=== PATIENT | male | born 1955 | race Caucasian/White ===

== ENCOUNTER 2024-12-17 10:34 | Outpatient (AMB) | payer MEDICARE, MEDICAID, SELFPAY ==
--- NOTE | 2024-12-17 10:47 | A.OFFPC_ITS ---
or your family down: not at all 7. Trouble concentrating on things, such as reading the newspaper or watching television: not at all 8. Moving or speaking so slowly that other people could have noticed. Or the opposite - being so fidgety or restless that you have been moving around a lot more than usual: not at all 9. Thoughts that you would be better off or of hurting yourself in some way: not at all Total score: 0 Depression Screening Interpretation: Negative Depression Screening Done: Yes 68220 - PHQ-9 Billing: Yes Source: Developed by Drs. Neel Muhammad, Alissa Ayoub, Gómez Sargent and colleagues, with an educational jorge from [employer]. Thrive Questionnaire Date Thrive assessed: 12/11/24 I am a: Patient What is your living situation today?: I have a steady place to live Within the past 12 months, did the food you bought not last and you didn't have the money to get more?: Never true Within the past 12 months, did you worry whether your food would run out before you got money to buy more?: Never true Do you have trouble paying for medicines?: No Do you have trouble getting transportation to medical appointments?: No Do you have trouble paying your heating and electricity bill?: No Do you have trouble taking care of your child, family member or friend?: No Do you have trouble with day-to-day activities such as bathing, preparing meals, shopping, managing finances, etc.?: No Are you currently unemployed and looking for a job?: No Are you interested in more education?: No Please select the resources that you would like help with: None Currently or been in a relationship where the following occur: No concerns reported THRIVE Score: 0 AUDIT C Alcohol Use Questionnaire (AUDIT-C) 1. How often do you have a drink containing alcohol?: Monthly or less 2. How many drinks containing alcohol do you have on a typical day when you are drinking?: 1 or 2 3. How often do you have six or more drinks on one occasion?: Never Total Score: 1 KAY-7 AMB Questionnaire KAY-7 Date KAY - 7 assessed: 12/17/24 Feeling nervous, anxious, or on edge: 0 = Not at all Not being able to stop or control worryin = Not at all Worrying too much about different things: 0 = Not at all Trouble relaxin = Not at all Being so restless that it is hard to sit still: 0 = Not at all Becoming easily annoyed or irritable: 0 = Not at all Feeling afraid as if something awful might happen: 0 = Not at all Total KAY-7 score (0-4 normal; 5-9 mild; 10-14 moderate; 15-21 severe): 0 Source: Developed by Drs. Neel Muhammad, Alissa Ayoub, Gómez Sargent and colleagues, with an educational jorge from [employer]. KAY-7 Assessment Billing KAY-7 Assessment Tool: KAY-7 Assessment 47248 Review of Systems Const Denies headache(s) Eyes Denies loss of vision ENT Denies vertigo, Reports dizziness, Denies headache(s) and Denies sore throat Card Reports chest pain (Mild), Denies leg edema, Reports lightheadedness and Denies radiating jaw, neck or arm pain Resp Denies cough, Denies hemoptysis and Denies wheezing GI Denies abdominal pain, Denies melena, Denies constipation, Denies diarrhea and Denies vomiting Denies dysuria, Denies urinary frequency and Denies urinary urgency Neuro Denies Abnormal speech present, Denies vertigo, Reports dizziness, Denies headache(s) and Denies loss of vision Carl/Lymph Denies easy bleeding and Denies easy bruising Aller/Immun Denies wheezing Physical exam (Primary Care) Vital Signs: Last Vital Signs Temp 97.1 F 12/17/24 10:49 Pulse 88 12/17/24 10:49 BP 82/70 L 12/17/24 10:49 Pulse Ox 90 L 12/17/24 10:49 Oxygen Delivery Method Room Air 12/17/24 10:49 BMI result Body Mass Index 29.8 Tobacco/Smoking Status: Tobacco use Status Tobacco use date assessed 12/17/24 12/17/24 11:00 Patient Tobacco Use Status Former Tobacco user 12/17/24 11:00 Tobacco use type Cigarette 12/17/24 11:00 e-Cigarette/Vaping Use Never Used 12/17/24 11:00 PHQ-9: PHQ-9 Score PHQ-9: Total score 0 12/17/24 23:57 Depression Screening Interpretation: Negative Thrive Assessment: Date of Thrive Assessment Date Thrive assessed 12/11/24 12/17/24 11:00 Currently or been in a relationship where the following occur: No concerns reported Const General: healthy appearing, no acute distress, alert and awake Nutritional Appearance: well nourished Orientation/consciousness: oriented to person, oriented to place and oriented to time HENMT Ears: external ears normal General nose exam: Normal external nose present Eyes Conjunctivae: conjunctivae normal Sclerae: sclerae normal Pupils: Equal, round and reactive pupils present Neck Neck: Yes no lymphadenopathy and Yes no JVD Thyroid: Thyroid normal Carotids: no bruits Resp Effort & Inspection: normal respiratory effort and not tachypneic Auscultation: no crackles, no rales, no rhonchi, no wheezes and diminished lung sounds Cardio Rate: regular rate Rhythm: regular rhythm Heart sounds: no murmurs and normal S1 and S2 GI Palpation (GI): Soft to palpation, nontender, no hepatomegaly and no splenomegaly Auscultation: normal bowel sounds Neuro General: oriented to person, oriented to place and oriented to time Cranial nerves: Yes Equal, round and reactive pupils present Speech: No Abnormal speech present Gait exam (Neuro): Normal gait present Motor exam (neuro): no tremor noted Extrem Right upper extremity: full ROM Left upper extremity: full ROM Right lower extremity: full ROM; no edema Left lower extremity: full ROM; no edema Psych Mental Status: mental status grossly normal Speech and movement: Normal speech and movement present Affect: normal affect Attitude: cooperative Thought process: Normal thought process present Results AMB Hemoglobin A1c AMB Hemoglobin A1c 7.3 % Last Edit by LEONORA Chris on 12/17/24 11:26 Results Reviewed Results Reviewed: Laboratory Last Values Hgb A1c (Clinic) 7.3 % (4.0-6.0) H 12/17/24 11:18 Coding Level of Care Code New Pt Level 5 (94031) Diagnoses Type 2 diabetes mellitus with hyperglycemia, with long-term current use of insulin E11.65; Z79.4 Diabetes mellitus type: type 2 Diabetes mellitus residential insulin use: with residential use Diabetes mellitus complication status: with hyperglycemia Hypotension due to drugs I95.2 Hypotension type: hypotension due to drug Dizziness R42 Precordial pain R07.2 Chest pain type: precordial pain Additional Codes KAY-7 Assessment Billing - KAY-7 Assessment Tool: KAY-7 Assessment 04341 ([id number]) PHQ-9 - 80038 - PHQ-9 Billing: Yes ([id number]) Time Spent (min) 45 Assessment & Plan Assessment & Plan (1) Diabetes mellitus: Code(s): E11.9 - Type 2 diabetes mellitus without complications Category: Medical Qualifiers: Diabetes mellitus type: type 2 Diabetes mellitus residential insulin use: with residential use Diabetes mellitus complication status: with hyperglycemia Qualified Code(s): E11.65 - Type 2 diabetes mellitus with hyperglycemia; Z79.4 - nursing home (current) use of insulin Plan: A1c in office supplement 2% and the patient has a Dexcom on blood sugars in the 200s. Reports taking 25 units of his Lantus this morning. He has not eating and only had a small amount of coffee prior to coming to this visit. Discussed with the patient that he has a start drinking more water for hydration. (2) Hypotension: Code(s): I95.9 - Hypotension, unspecified Category: Medical Qualifiers: Hypotension type: hypotension due to drug Qualified Code(s): I95.2 - Hypotension due to drugs Plan: Patient blood pressure is extremely low in office. Gave the patient 2 small cups of water to drink with no effects. Repeat blood pressures remain low and even lower than the initial low reading. The patient might be dehydrated given that he had small amount of coffee this morning and no other fluids. The patient is also on multiple blood pressure medications which were already taken this morning, complicating his situation and might be driving his low blood pressure as well. Discussed with the patient that he needs to go to emergency room for possibly dehydration or more serious conditions lowering his blood pressure. The patient daughter reports that this has been an ongoing issue and she was told just to monitor him. However, his blood pressure is at on unsafe low range. Educated the patient daughter that it isn't safe for him to go home and try and bringing his blood pressure up, and that he might need IV fluids. The patient daughter agrees and the ambulance was called to transport the patien t to the emergency room. (3) Dizziness: Code(s): R42 - Dizziness and giddiness Category: Medical Plan: Complain of dizziness and sitting in chair with the associated low blood pressure. (4) Chest pain: Code(s): R07.9 - Chest pain, unspecified Category: Medical Qualifiers: Chest pain type: precordial pain Qualified Code(s): R07.2 - Precordial pain Plan: Initially the patient denies chest pain but changes answer to mild chest pain as his blood pressure decreased slightly from initial reading. Orders: Orders AMB Hemoglobin A1c 12/17/24 Z13.9 - Encounter for screening, unspecified Vital Signs 12/17/24 10:49 Height 5 ft 7 in Weight 190 lb BMI 29.8 BP 82/70 L Blood Pressure Location Lt brachial Position Sitting Pulse 88 Pulse Source Pulse Oximeter Temp 97.1 F Temp Source Oral Pulse Oximetry (%) 90 L Oxygen Delivery Method Room Air Intake Visit Reasons: establish care Distance Education Faculty Liaison Required: No Accompanied by: Daughter Allergies hazelnuts Allergy (Severe, Uncoded 12/17/24 13:31) swelling, hives Medication List - Last Reconciled 12/17/24 by MILTON Linton amitriptyline 10 mg PO BEDTIME atorvastatin 80 mg PO DAILY carbamazepine ER mg PO clopidogrel 75 mg PO DAILY dulaglutide (Trulicity) mg subcut famotidine 20 mg PO BID insulin aspart (niacinamide) 100 unit/mL (Fiasp U-100 Insulin) subcut insulin glargine (Basaglar KwikPen U-100 Insulin) units subcut isosorbide mononitrate ER 30 mg PO BID lisinopril 5 mg PO DAILY metoprolol succinate ER 25 mg PO DAILY pregabalin 200 mg PO BID ropinirole mg PO Tobacco use date assessed: 12/17/24 Fall risk assessment: No Falls in past year Last assessed Fall Risk: 12/17/24 Dental Screening Dental Screen Date: 12/17/24 Did you have a dental visit in the last 12 months?: No Did you have a dental problem in the last 6 months where you did not have access to dental care?: No Was dental information given to patient?: Patient declined HPI establish care HPI Details Previous PCP: Dr. Holguin, [facility] in [place] Last visit: 2023 Last PE: 2023 Specialist: Cardiology, Urology, Endocrinology, Vascular surgeon OBGYN: Past medical history: DM, Enlarge prostate, heart disease Medications: Family HX: Brothers x3 had prostate CA Problem: he had an appt with PSA 9.42, he has been monitored for cancer. Reports that his prostate is enlarged DM: Last 8.2%, 7.2% Sliding scale only give either 10 or 20 units. Took 25 units of long-lasting insulin this morning. No short-acting taking. Blood sugar on Dexcom is in the 240s. Repeat blood pressure 78/54 right arm. Reports that he has a valve issue, not sure which one or the issue pertaining to the valve. Patient complains of dizziness and mild chest pain sitting in chair. Reports that he uses 2 or 3 L of oxygen at night because his oxygen level his known to drop at night; he is reporting nighttime sob. Breath sounds are diminished with continuous mild chest pain without radiation or any other associated symptoms. Discussed with the patient and daughter that even though the patient is alert and verbal in office. Given, his low blood pressure and symptoms of dizziness and mild chest pain, he needs to go to emergency room to be evaluated for dehydration or possibly more serious conditions. The ambulance was called and the patient was transferred via stretcher to the emergency room. The patient daughter was concerned about his medication being refilled. A discussed with the patient daughter that as soon as the patient is discharged from the hospital she could contact the office and his medications could be refilled. [facility] Medical History (Updated 12/18/24 @ 00:15 by MILTON Linton) Diabetes mellitus CVA (cerebral vascular accident) Type 2 diabetes mellitus HTN (hypertension) Surgical History History of carpal tunnel surgery History of surgery Family History Father No problems noted. Mother Heart disease Social History Household Members: Other Household Members Other:: daughter Housing: House Do you presently have visiting nurse or other home services: No Alcohol intake: current Alcohol intake frequency: holidays/special occasions only Alcohol type: beer Patient Tobacco Use Status: Former Tobacco user Tobacco use type: Cigarette Smoked in Last 30 Days: No e-Cigarette/Vaping Use: Never Used Second Hand Smoke Exposure: No Use of substances other than those prescribed or required for medical reasons: No Have you been hit, kicked, punched, or otherwise hurt by someone within the past year? If so, by whom?: No Do you feel safe in your current relationship?: No Current Relationship Is there a partner from a previous relationship who is making you feel unsafe now?: No Are you made to feel afraid or neglected: No Alevism Healthcare Practices: synagogue Advance Directives: No Advance Directives Information Provided: No Do you have a plan to hurt others: No Plan Recently lost weight without trying: No Nutrition Risks: No Nutritional Risk service: No Current occupational status: retired and disabled Cognitive needs: Yes Hearing needs: No Vision needs: Yes Questionnaire PHQ-9 Over the last 2 weeks, how often have you been bothered by any of the following problems? 1. Little interest or pleasure in doing things: not at all 2. Feeling down, depressed, or hopeless: not at all 3. Trouble falling or staying asleep, or sleeping too much: not at all 4. Feeling tired or having little energy: not at all 5. Poor appetite or overeating: not at all 6. Feeling bad about yourself - or that you are a failure or have let yourself
[2024-12-17 10:49] VITALS: BP 82/70; PULSE 88; TEMP 36.2; O2SAT 90; BMI 29.8
== END 2024-12-17 12:14 | disposition home or self-care (01) ==
DX: Z13.9 Encounter for screening, unspecified (principal)

== ENCOUNTER 2024-12-17 12:28 | Observation (INO) | payer MEDICARE, MEDICAID, SELFPAY ==
[2024-12-17] VITALS (9 sets, daily range): BP systolic 80–158; BP diastolic 42–86; PULSE 74–91; RESP 13–20; TEMP 36.5–37.1; O2SAT 92–101; BMI 31.5
--- NOTE | 2024-12-17 | ECG_ITS ---
Test Reason : Chest Pain Blood Pressure : */* mmHG Vent. Rate : 79 BPM Atrial Rate : 79 BPM P-R Int : 152 ms QRS Dur : 86 ms QT Int : 388 ms P-R-T Axes : 64 -13 82 degrees QTcB Int : 444 ms Normal sinus rhythm ST & T wave abnormality, consider lateral ischemia Abnormal ECG When compared with ECG of 10-Nov-2004 06:46, Non-specific change in ST segment in Inferior leads ST now depressed in Anterolateral leads T wave inversion now evident in Anterolateral leads QT has lengthened Referred By: Generic ED Physician Electronically Signed By: EL BLANCO MD
--- NOTE | ~2024-12-17 | XR_ITS ---
EXAMINATION: XR CHEST CLINICAL INFORMATION: Hypotension COMPARISON: None available. TECHNIQUE: Frontal view of the chest was obtained. FINDINGS: The cardiac, hilar, and mediastinal contours are normal. Lungs demonstrate increased linear markings in the retrocardiac region, likely discoid atelectasis. Lungs otherwise clear. No pneumothorax or effusion. No focal osseous or soft tissue abnormality. Numerous old left rib fractures noted. XR/XR chest 1V IMPRESSION: Left basilar discoid atelectasis. Otherwise no active disease. Electronically signed by: Teo Naranjo MD 12/17/2024 01:40 PM EDT RP
--- NOTE | 2024-12-17 13:04 | ED_ITS ---
HPI - General Adult General Chief complaint: General Medical Stated complaint: CP,LOW BP 110/67 FROM MD OFFICE PER EMS Time Seen by Provider: 12/17/24 12:41 Source: patient, EMS and old records reviewed Mode of arrival: EMS Limitations: no limitations History of Present Illness ED Provider: DR. Rose HPI narrative: A 69-year-old male came in by ambulance from PCP office for evaluation of low blood pressure and chest pain. Patient just moved from [place] to [place] went to have his 1st appointment for physical exam with his PCP found to be hypotensive, patient complained of no fever, no chills, no coughing, no dysuria, no frequency urination, no hematuria. No abdominal pain, no nausea, no vomiting, lost bowel movement was this morning and was normal color. Has been eating and drinking okay. Reviewing patient medication he is on metoprolol 25 mg and lisinopril 5 mg daily. Patient use supplemental oxygen 3 L p.r.n. at home. Related Data Home Medications ?Medication ?Instructions ?Recorded ?Confirmed amitriptyline 10 mg tablet 10 mg PO BEDTIME 12/17/24 12/17/24 atorvastatin 80 mg tablet 80 mg PO DAILY 12/17/24 12/17/24 carbamazepine 200 mg mg PO 12/17/24 12/17/24 tablet,extended release,12 hr clopidogrel 75 mg tablet 75 mg PO DAILY 12/17/24 12/17/24 dulaglutide 4.5 mg/0.5 mL mg subcut 12/17/24 12/17/24 subcutaneous pen injector (Trulicity) famotidine 20 mg tablet 20 mg PO BID 12/17/24 12/17/24 insulin aspart (niacinamide) subcut 12/17/24 12/17/24 (U-100) 100 unit/mL subcutaneous solution (Fiasp U-100 Insulin) insulin glargine 100 unit/mL (3 unit subcut 12/17/24 12/17/24 mL) subcutaneous pen (Basaglar KwikPen U-100 Insulin) isosorbide mononitrate 30 mg 30 mg PO BID 12/17/24 12/17/24 tablet,extended release 24 hr lisinopril 5 mg tablet 5 mg PO DAILY 12/17/24 12/17/24 metoprolol succinate 25 mg 25 mg PO DAILY 12/17/24 12/17/24 tablet,extended release 24 hr pregabalin 200 mg capsule 200 mg PO BID 12/17/24 12/17/24 ropinirole 2 mg tablet mg PO 12/17/24 12/17/24 Allergies Allergy/AdvReac Type Severity Reaction Status Date / Time kariss Allergy Severe swelling, Uncoded 12/17/24 13:31 hives Review of Systems 2 Review of Systems: All other systems are reviewed and are negative Constitutional: Reports as per HPI and Reports no additional constitutional complaints Eyes: Reports as per HPI and Reports no additional eye complaints Reports system reviewed and no additional complaints, except as documented Cardiovascular: Reports as per HPI and Reports no additional cardiovascular complaints Respiratory: Reports as per HPI and Reports no additional respiratory complaints Gastrointestinal: Reports as per HPI and Reports no additional gastrointestinal complaints Genitourinary: Reports no additional female genitourinary complaints Musculoskeletal: Reports no additional musculoskeletal complaints Skin/Breast: Reports system reviewed and no additional complaints, except as docu Psychiatric: Reports no additional psychiatric complaints Endocrine: Reports no additional endocrine complaints Hematologic/Lymphatic: Reports no additional hematologic/lymphatic complaints Allergic/Immunologic: Reports no additional allergic/immunologic complaints Reports system reviewed and no additional complaints, except as documented and Reports Abnormal speech present [facility], [facility] Past Medical History Medical History Type 2 diabetes mellitus HTN (hypertension) Surgical History History of carpal tunnel surgery History of surgery Family History Family History Father No problems noted. Mother Heart disease Social History Social History Housing: House Alcohol intake: current Alcohol intake frequency: holidays/special occasions only Alcohol type: beer Patient Tobacco Use Status: Former Tobacco user Tobacco use type: Cigarette Smoked in Last 30 Days: No e-Cigarette/Vaping Use: Never Used Second Hand Smoke Exposure: No Use of substances other than those prescribed or required for medical reasons: No Advance Directives: No Advance Directives Information Provided: No Do you have a plan to hurt others: No Plan service: No Current occupational status: retired and disabled Cognitive needs: Yes Hearing needs: No Vision needs: Yes Physical Exam ED Vital Signs: Vital Signs - 24 hr 12/17/24 12:45 12/17/24 12:45 12/17/24 13:36 Temperature 98.2 F 98.2 F Pulse Rate 83 83 77 Respiratory Rate 13 13 Blood Pressure 80/50 L 80/50 L 84/42 L Pulse Oximetry 100 101 H Oxygen Delivery Method Room Air Room Air 12/17/24 13:36 12/17/24 13:36 12/17/24 14:00 Temperature 97.7 F Pulse Rate 84 91 78 Respiratory Rate 15 Blood Pressure 94/56 L 83/42 L 96/53 L Pulse Oximetry 99 Oxygen Delivery Method Room Air 12/17/24 15:13 Temperature Pulse Rate 77 Respiratory Rate 16 Blood Pressure 127/67 Pulse Oximetry 96 Oxygen Delivery Method Room Air BMI result Body Mass Index 31.5 Vital signs have been reviewed and appear to be correct. Blood pressure low. Heart rate normal. Respiratory rate normal. Temperature normal. Oxygen saturation normal. Appearance: Alert. Oriented X3. No acute distress. Head: Normal external exam. Normocephalic. Atraumatic. No Carrizales signs noted. No raccoon eyes noted Eyes: PERRLA. EOMI. Conjunctiva and sclera normal. Eyelids normal. ENT: TM's Normal. Pharynx normal. Uvula midline. dry mucous membranes. No trismus noted. No drooling noted. No muffled voice noted. Neck: Normal inspection. Neck supple. FROM. No adenopathy. Thyroid Normal. No meningeal signs. No neck mass noted. CVS: Normal heart rate and rhythm. Heart sound normal. No murmurs noted. Pulses normal throughout. Respiratory: No respiratory distress. Painless inspiration. Breath sounds normal. No wheezes/rales/rhonchi noted. Chest nontender. No accessory muscle usage noted or decreased air movement noted. Abdomen: Soft and nontender. Bowel sounds normal in all 4 quadrants. No distention noted. No organomegaly noted. No visible injury noted. Back: No CVA tenderness. Full range of motion noted. Skin: Skin warm and dry. Normal skin color. Normal skin turgor. No rashes/lesions/lacerations noted. Extremities: No lower extremity edema. Extremities exhibit normal range of motion. Extremities nontender. Neuro: Oriented X 3. Cranial nerve exam: II-XII are grossly intact No motor deficit. No sensory deficit. Reflexes normal. Course Reevaluation(s) Reevaluation #1: Sent from PCP office for hypotension and chest pain. 1. Exam is consistent with slight dehydration, with heme concentration on CBC and elevated BUN, patient received 2 L of Ringer's lactate with improvement of blood pressure. 2. Recently moved to [facility] reviewing patient med list showing patient is currently on lisinopril and metoprolol which could contribute to his hypotension. 3. No source of infection to Time: 15:30 Medications Administered Discontinued Medications Generic Name Dose Route Start Last Admin Trade Name Freq PRN Reason Stop Dose Admin Lactated Ringer's 1,000 mls @ 999 mls/hr 12/17/24 13:00 12/17/24 14:41 Lr IV 12/17/24 14:00 Infused .Q1H1M MOISES Infusion Lactated Ringer's 1,000 mls @ 999 mls/hr 12/17/24 13:45 12/17/24 15:17 Lr IV 12/17/24 14:45 Infused .Q1H1M MOISES Infusion Lactated Ringer's 1,000 mls @ 999 mls/hr 12/17/24 14:30 12/17/24 14:55 Lr IV 12/17/24 15:30 999 mls/hr .Q1H1M MOISES Administration Medical Decision Making Differential Diagnosis Differential Diagnoses: The differential diagnosis associated with the presentation includes (Dehydration, ESTEBAN, infection, hypovolemia, drug-induced hypotension, electrolyte derangement, severe anemia.) Admission/Observation Consideration of admission/observation: Escalation of care including admission/observation considered Consult Healthcare Provider Management of the patient was discussed with: Hospitalist (Dr. Maldonado) Lab Data MDM Lab Attestation statement: I reviewed the patient's lab results. 12/17/24 13:19 12/17/24 13:19 Labs: Lab Results 12/17/24 12/17/24 Range/Units 13:19 14:59 WBC 8.7 (4.8-10.8) X10*3/uL RBC 6.13 H (4.60-5.80) X10*6/uL Hgb 18.4 H (14.0-18.0) g/dl Hct 56.0 H (42.0-52.0) % MCV 91.4 (80.0-98.0) fL MCH 30.0 (27.0-33.0) pg MCHC 32.9 (31.0-36.0) g/dl RDW 14.1 (11.0-16.0) % Plt Count 191 (160-400) X10*3/uL MPV 10.9 (9.4-12.4) fL Immature Gran % (Auto) 0.2 (0.0-0.4) % Neut % (Auto) 61.3 (45-73) % Lymph % (Auto) 25.4 (20-40) % [place] % (Auto) 11.9 H (2-11) % Eos % (Auto) 0.9 (0-4) % Baso % (Auto) 0.3 (0-2) % Lymph # (Auto) 2.2 (1.2-4.9) X10*3/uL [place] # (Auto) 1.0 (0.1-1.2) X10*3/uL Eos # (Auto) 0.1 (0.0-0.4) X10*3/uL Baso # (Auto) 0.0 (0.0-0.2) X10*3/uL Abs Immat Gran (auto) 0.02 (0.00-0.03) X10*3/uL Absolute Neuts (auto) 5.3 (2.0-8.3) x10*3/uL Absolute Nucleated RBC 0.000 (0.0-0.012) X10*3/uL Nucleated RBC % (auto) 0.0 (0.0-0.2) /100WBC PT 11.0 (10.9-12.4) SEC INR 1.0 (0.9-1.1) Sodium 138 (135-145) mmol/L Potassium 4.8 (3.3-5.1) mmol/L Chloride 106 (96-108) mmol/L Carbon Dioxide 25 (22-29) mmol/L Anion Gap 12 (12-20) BUN 31 H (9-16) mg/dL Creatinine 1.31 (0.5-1.4) mg/dL Estim Creat Clear Calc 56.5 Estimated GFR 54 Random Glucose 219 H (60-115) mg/dL Lactic Acid 1.4 (0.5-2.0) mmol/L Calcium 8.7 (8.4-10.2) mg/dL Total Bilirubin 0.4 (0.0-1.0) mg/dL Direct Bilirubin 0.1 (0.0-0.5) mg/dL AST 16 (5-37) U/L ALT 20 (0-40) U/L Alkaline Phosphatase 102 (39-117) U/L Troponin I High Sens 22.7 (<3.5-35.0) ng/L B-Natriuretic Peptide 111 H (<100) pg/mL Total Protein 6.7 (6.5-8.0) g/dL Albumin 3.8 (3.5-5.0) g/dL Lipase 21 (8-78) U/L Urine Color Yellow Urine Appearance Clear Urine pH 5.5 (5.0-9.0) Ur Specific [place] 1.015 (1.005-1.025) Urine Protein Trace (Neg-Trace) mg/dL Urine Glucose (UA) Negative (Negative) mg/dL Urine Ketones Trace (Negative) mg/dL Urine Blood Negative (Negative) Urine Nitrite Negative (Negative) Ur Leukocyte Esterase Negative (Negative) Influenza Type A (PCR) NEGATIVE (Negative) Influenza Type B (PCR) NEGATIVE (Negative) RSV RNA Qual (PCR) NEGATIVE (Negative) SARS-CoV-2 RNA (RT-PCR) NEGATIVE (Negative) Independent Interpretation I performed an independent interpretation of an: Plain X-Ray (Chest:Left basilar discoid atelectasis. Otherwise no active disease. ) Discharge Plan Discharge Clinical Impression: Acute hypotension, Dehydration, Drug-induced hypotension Patient Disposition: Admitted As Inpatient
[2024-12-17 13:30] LABS: MANUAL DIFF FLAG NO
[2024-12-17 13:35] LABS: Basophils Percent Auto 0.3 % (0-2); Eosinophils Absolute Auto 0.1 X10*3/uL (0.0-0.4); Eosinophils Percent Auto 0.9 % (0-4); Hemoglobin 18.4 g/dl (14.0-18.0); Imm Gran Abs Auto 0.02 X10*3/uL (0.00-0.03); Imm Gran Pct Auto 0.2 % (0.0-0.4); Lymphocytes Absolute Auto 2.2 X10*3/uL (1.2-4.9); Lymphocytes Percent Auto 25.4 % (20-40); Mean Corpuscular HGB Conc 32.9 g/dl (31.0-36.0); Mean Corpuscular Volume 91.4 fL (80.0-98.0); Mean Platelet Volume 10.9 fL (9.4-12.4); Monocytes Percent Auto 11.9 % (2-11); Neutrophils Absolute Auto 5.3 x10*3/uL (2.0-8.3); Neutrophils Percent Auto 61.3 % (45-73); Platelet Count 191 X10*3/uL (160-400); Red Blood Count 6.13 X10*6/uL (4.60-5.80); Red Cell Distribution Width 14.1 % (11.0-16.0); White Blood Count 8.7 X10*3/uL (4.8-10.8)
[2024-12-17] MEDS: Lactated Ringers 1,000 ML 999 ML IV ×3 (13:40→14:55)
[2024-12-17 13:48] LABS: Lactic Acid 1.4 mmol/L (0.5-2.0)
[2024-12-17 13:50] LABS: Alanine Aminotransferase 20 U/L (0-40); Albumin Level 3.8 g/dL (3.5-5.0); Alkaline Phosphatase 102 U/L (39-117); Anion Gap 12 (12-20); Aspartate Amino Transferase 16 U/L (5-37); Bilirubin Direct 0.1 mg/dL (0.0-0.5); Bilirubin Total 0.4 mg/dL (0.0-1.0); Blood Urea Nitrogen 31 mg/dL (9-16); Calcium 8.7 mg/dL (8.4-10.2); Carbon Dioxide 25 mmol/L (22-29); Chloride 106 mmol/L (96-108); Creatinine Clr Calc Pharmacy 56.5; Estimated Glomerular Filt Rate 54; Glucose Random 219 mg/dL (60-115); Lipase 21 U/L (8-78); Potassium 4.8 mmol/L (3.3-5.1); Sodium 138 mmol/L (135-145); Total Protein 6.7 g/dL (6.5-8.0)
[2024-12-17 13:54] LABS: B Type Natriuretic Peptide 111 pg/mL (<100)
[2024-12-17 13:56] LABS: Troponin-I High Sensitivity 22.7 ng/L (<3.5-35.0)
[2024-12-17 14:14] LABS: Influenza A PCR NEGATIVE (Negative); Influenza B PCR NEGATIVE (Negative); Resp Syncy Virus RNA Qual PCR NEGATIVE (Negative); SARS COV2 PCR INHOUSE NEGATIVE (Negative)
[2024-12-17 15:06] LABS: Appearance Urine Clear; Color Urine Yellow; Glucose Urine UA Negative (Negative); Leukocyte Esterase Urine Negative (Negative); Nitrite Urine Negative (Negative); PH 5.5 (5.0-9.0); Specific Gravity - Urine 1.015 (1.005-1.025); Urine Blood Negative (Negative); Urine Ketones Trace mg/dL (Negative); Urine Protein Trace mg/dL (Neg-Trace)
--- NOTE | 2024-12-17 15:25 | P.HPHOSP_ITS ---
History of Present Illness Date of Service: 12/17/24 Chief Complaint: weakness, hypotension A 69 years old male with PMH of DMII, HTN, HLD, CAD among others presenting to ED from PCP office for reported chest heaviness and low blood pressure. The patient moved recently from [place] and went to see his PCP for the first time. in evaluation he reported heaviness in chest and was found hypotensive in PCP office. No chest pain, palpitations, SOB, nausea, vomiting, diarrhea or urinary symptoms. Takes Metoprolol and Lisinopril at home. In ED BP found of 80s/40s. responded to IV fluids and improved. EKG and Trop negative for any suggestion of ACS. Admitted for further work up and management. Review of Systems 2 Review of Systems: No fever, chills or weakness No chest pain, palpitation No shortness of breath or coughing No abdominal pain, nausea or vomiting No urinary symptoms No any rash or wounds PMFSH Medical History Type 2 diabetes mellitus HTN (hypertension) Family History Father No problems noted. Mother Heart disease Surgical History History of carpal tunnel surgery History of surgery Social History Housing: House Alcohol intake: current Alcohol intake frequency: holidays/special occasions only Alcohol type: beer Patient Tobacco Use Status: Former Tobacco user Tobacco use type: Cigarette Smoked in Last 30 Days: No e-Cigarette/Vaping Use: Never Used Second Hand Smoke Exposure: No Use of substances other than those prescribed or required for medical reasons: No Advance Directives: No Advance Directives Information Provided: No Do you have a plan to hurt others: No Plan Nutrition Risks: No Nutritional Risk service: No Current occupational status: retired and disabled Cognitive needs: Yes Hearing needs: No Vision needs: Yes Meds Allergies Allergy/AdvReac Type Severity Reaction Status Date / Time hazelnuts Allergy Severe swelling, Uncoded 12/17/24 13:31 hives Active Medications: Current Medications Lactated Ringer's (Lr) 1,000 mls @ 999 mls/hr IV .Q1H1M MOISES Stop: 12/17/24 15:30 Last Admin: 12/17/24 14:55 Dose: 999 mls/hr Home Medications ?Medication ?Instructions ?Recorded ?Confirmed ?Last Taken ?Type amitriptyline 10 mg tablet 10 mg PO BEDTIME 12/17/24 12/17/24 Unknown History atorvastatin 80 mg tablet 80 mg PO DAILY 12/17/24 12/17/24 Unknown History carbamazepine 200 mg 200 mg PO DAILY 12/17/24 12/17/24 Unknown History tablet,extended release,12 hr clopidogrel 75 mg tablet 75 mg PO DAILY 12/17/24 12/17/24 Unknown History dulaglutide 4.5 mg/0.5 mL 4.5 mg subcut QWEEK 12/17/24 12/17/24 Unknown History subcutaneous pen injector (Trulicity) famotidine 20 mg tablet 20 mg PO BID 12/17/24 12/17/24 Unknown History insulin aspart (niacinamide) subcut 12/17/24 12/17/24 Unknown History (U-100) 100 unit/mL subcutaneous solution (Fiasp U-100 Insulin) insulin glargine 100 unit/mL (3 unit subcut 12/17/24 12/17/24 Unknown History mL) subcutaneous pen (Basaglar KwikPen U-100 Insulin) isosorbide mononitrate 30 mg 30 mg PO BID 12/17/24 12/17/24 Unknown History tablet,extended release 24 hr lisinopril 5 mg tablet 5 mg PO DAILY 12/17/24 12/17/24 Unknown History metoprolol succinate 25 mg 25 mg PO DAILY 12/17/24 12/17/24 Unknown History tablet,extended release 24 hr pregabalin 200 mg capsule 200 mg PO BID 12/17/24 12/17/24 Unknown History ropinirole 2 mg tablet 2 mg PO BID 12/17/24 12/17/24 Unknown History Physical Exam 2 Vital Signs and Narrative: Vital Signs: Last Vital Signs Temp 97.7 F 12/17/24 14:00 Pulse 77 12/17/24 15:13 Resp 16 12/17/24 15:13 BP 127/67 12/17/24 15:13 Pulse Ox 96 12/17/24 15:13 O2 Del Method Room Air 12/17/24 15:13 BMI result Body Mass Index 31.5 Const: Other: Constitutional : Awake, interactive, not in distress Neck : Normal inspection, Supple Cardiovascular : RRR, no JVP, no lower extremity edema Respiratory : good bilateral air entry, no crackles, wheezes or rhonchi Gastrointestinal: soft, lax, Normal bowel sounds, Non tender Skin : Warm, Dry Neurological : Alert & oriented x3, No focal deficit Results Labs 12/17/24 13:19 12/17/24 13:19 Labs: Laboratory Results - last 24 hr 12/17/24 13:19 MCV 91.4 MCH 30.0 MCHC 32.9 RDW 14.1 Plt Count 191 MPV 10.9 Immature Gran % (Auto) 0.2 Neut % (Auto) 61.3 Lymph % (Auto) 25.4 [place] % (Auto) 11.9 H Eos % (Auto) 0.9 Baso % (Auto) 0.3 Lymph # (Auto) 2.2 [place] # (Auto) 1.0 Eos # (Auto) 0.1 Baso # (Auto) 0.0 Abs Immat Gran (auto) 0.02 Absolute Neuts (auto) 5.3 Absolute Nucleated RBC 0.000 Nucleated RBC % (auto) 0.0 PT 11.0 INR 1.0 Anion Gap 12 Estim Creat Clear Calc 56.5 Estimated GFR 54 Random Glucose 219 H Lactic Acid 1.4 Calcium 8.7 Total Bilirubin 0.4 Direct Bilirubin 0.1 AST 16 ALT 20 Alkaline Phosphatase 102 B-Natriuretic Peptide 111 H Total Protein 6.7 Albumin 3.8 Lipase 21 Influenza Type A (PCR) NEGATIVE Influenza Type B (PCR) NEGATIVE RSV RNA Qual (PCR) NEGATIVE SARS-CoV-2 RNA (RT-PCR) NEGATIVE Imaging Radiologist's Impressions: Impressions Chest X-Ray 12/17/24 13:00 IMPRESSION: Left basilar discoid atelectasis. Otherwise no active disease. Electronically signed by: Teo Naranjo MD 12/17/2024 01:40 PM EDT Assessment and Plan (1) Drug-induced hypotension: Status: Acute (2) Acute hypotension: Status: Acute (3) Dehydration: Status: Acute Plan A 69 years old male with PMH of DMII, HTN, HLD, CAD among others presenting to ED from PCP office for reported chest heaviness and low blood pressure. Hypotension Likely related to medications and dehydration as BUN elevated and has concentrated CBC IVF fluids Hold Lisinopril and Metoprolol monitor orthostatic readings DMII Hold PO meds SSI diabetic diet Hx CAD Plavix, Statin, Imdur ? Neuropathy Gabapentin Nocurnal hypoxia on 2 L at home DVT PPx Lovenox The patient will be monitored for low BP Quality Stroke Does the patient have a stroke diagnosis?: No VTE Prior VTE?: No VTE Risk Level:: Medical - moderate - high VTE Device Contraindication: Treatment Not Indicated VTE Drug Contraindication: N/A - Med Ordered
[2024-12-17 16:27] LABS: Troponin-I High Sensitivity 16.9 ng/L (<3.5-35.0)
[2024-12-17] MEDS: Lactated Ringers 1,000 ML 100 ML IVCONT (16:34)
[2024-12-17 16:53] LABS: Glucose, Whole Blood 149 mg/dL (60-115)
[2024-12-17 17:42] LABS: Glucose, Whole Blood 151 mg/dL (60-115)
--- NOTE | 2024-12-17 19:50 | PHA.MEDREC ---
Addendum entered by Maco Crockett [facility] 12/17/24 20:05: med rec reviewed Original Note: Pharmacy Consult ? Medication Reconciliation Pharmacy has completed the medication reconciliation. Spoke with patient and pt's daughter at bedside, who had a list I was able to confirm the med rec with. Pt daughter confirmed the pt takes the Fiasp insulin still taking it TIDAC and uses it per sliding scale as indicated. She also confirmed the Basaglar and stated the pt is injecting 25 units BID. Pt daughter stated the pt is suppose to be taking Pregabalin 200mg tabs but ran out a few weeks ago and had a Dr apt today to refill it but got sent here from office and pt dr wants to wait to refill Pregabalin until after pt gets discharged from here and goes for a follow up.
[2024-12-17 20:27] LABS: Glucose, Whole Blood 213 mg/dL (60-115)
[2024-12-17] MEDS: Insulin Lispro 100 UNIT/ML 3 ML VIAL SUBCUT (21:03)
[2024-12-17] MEDS: Hydrocortisone 1 % Cream 28.35 GM TUBE 1 APPL TOPICAL (22:42)
[2024-12-18] MEDS: Lactated Ringers 1,000 ML 100 ML IVCONT (02:35)
[2024-12-18] MEDS: Melatonin 3 MG TABLET 6 MG PO (02:39)
[2024-12-18] MEDS: Acetaminophen 325 MG TABLET 650 MG PO (02:39)
[2024-12-18 03:05] VITALS: BP 147/83; PULSE 77; RESP 20; TEMP 36.4; O2SAT 93
[2024-12-18 07:06] VITALS: BP 144/84; PULSE 89; RESP 18; TEMP 36; O2SAT 94
[2024-12-18 07:18] LABS: MANUAL DIFF FLAG NO
[2024-12-18 07:28] LABS: Basophils Percent Auto 0.2 % (0-2); Eosinophils Absolute Auto 0.2 X10*3/uL (0.0-0.4); Eosinophils Percent Auto 2.4 % (0-4); Hemoglobin 17.2 g/dl (14.0-18.0); Imm Gran Abs Auto 0.02 X10*3/uL (0.00-0.03); Imm Gran Pct Auto 0.2 % (0.0-0.4); Lymphocytes Absolute Auto 2.6 X10*3/uL (1.2-4.9); Lymphocytes Percent Auto 32.1 % (20-40); Mean Corpuscular HGB Conc 33.1 g/dl (31.0-36.0); Mean Corpuscular Hemoglobin 30.3 pg (27.0-33.0); Mean Corpuscular Volume 91.7 fL (80.0-98.0); Mean Platelet Volume 11.4 fL (9.4-12.4); Monocytes Absolute Auto 1.1 X10*3/uL (0.1-1.2); Monocytes Percent Auto 13.2 % (2-11); Neutrophils Absolute Auto 4.2 x10*3/uL (2.0-8.3); Neutrophils Percent Auto 51.9 % (45-73); Platelet Count 171 X10*3/uL (160-400); Red Blood Count 5.67 X10*6/uL (4.60-5.80); Red Cell Distribution Width 13.4 % (11.0-16.0)
[2024-12-18 07:30] LABS: Glucose, Whole Blood 113 mg/dL (60-115)
[2024-12-18 07:58] LABS: Blood Urea Nitrogen 20 mg/dL (9-16); Calcium 8.7 mg/dL (8.4-10.2); Creatinine Clr Calc Pharmacy 84.1; Estimated Glomerular Filt Rate > 60; Glucose Random 92 mg/dL (60-115)
[2024-12-18 08:06] LABS: Anion Gap 12 (12-20); Carbon Dioxide 25 mmol/L (22-29); Chloride 109 mmol/L (96-108); Potassium 3.7 mmol/L (3.3-5.1); Sodium 142 mmol/L (135-145)
[2024-12-18 08:43] VITALS: BP 164/76; PULSE 95
[2024-12-18] MEDS: Insulin Glargine,Hum.rec.anlog 100 UNIT/ML 10 ML VIAL 15 UNIT SUBCUT (08:43)
[2024-12-18] MEDS: Metoprolol Succinate ER 25 MG TAB.ER.24H PO (08:43)
[2024-12-18] MEDS: Clopidogrel Bisulfate 75 MG TABLET PO (08:44)
[2024-12-18] MEDS: Famotidine 20 MG TABLET PO (08:44)
[2024-12-18] MEDS: Aspirin Enteric Coated 81 MG TABLET.DR PO (08:44)
[2024-12-18] MEDS: 0.9 % Sodium Chloride Flush 3 ML SYRINGE IVFLUSH (08:44)
[2024-12-18] MEDS: rOPINIRole HCL 2 MG TABLET PO (08:44)
[2024-12-18] MEDS: Hydrocortisone 1 % Cream 28.35 GM TUBE 1 APPL TOPICAL (08:45)
[2024-12-18] MEDS: carBAMazepine ER 200 MG TAB.ER.12H PO (10:35)
[2024-12-18] MEDS: Pregabalin 200 MG CAPSULE PO (10:35)
[2024-12-18 10:51] VITALS: BP 177/83; PULSE 88
[2024-12-18 10:52] VITALS: BP 166/71; BP 170/80; PULSE 90; PULSE 92
[2024-12-18] MEDS: Isosorbide Mononitrate 30 MG TAB.ER.24H 15 MG PO (11:00)
[2024-12-18 11:06] LABS: Glucose, Whole Blood 246 mg/dL (60-115)
[2024-12-18 12:00] VITALS: BP 164/83; PULSE 86; RESP 18; TEMP 36.3; O2SAT 93
--- NOTE | 2024-12-18 13:00 | PM.DS ---
DS: Providers Provider Date of Service: 12/18/24 Date of admission: 12/17/24 15:23 Date of discharge: 12/18/24 Primary care physician: Unknown Physician DS: Diagnosis Discharge Diagnosis (1) Drug-induced hypotension: Status: Acute (2) Acute hypotension: Status: Acute (3) Dehydration: Status: Acute DS: Summary Hospital Course Hospital Course: Admission note HPI A 69 years old male with PMH of DMII, HTN, HLD, CAD among others presenting to ED from PCP office for reported chest heaviness and low blood pressure. The patient moved recently from [place] and went to see his PCP for the first time. in evaluation he reported heaviness in chest and was found hypotensive in PCP office. No chest pain, palpitations, SOB, nausea, vomiting, diarrhea or urinary symptoms. Takes Metoprolol and Lisinopril at home. In ED BP found of 80s/40s. responded to IV fluids and improved. EKG and Trop negative for any suggestion of ACS. Admitted for further work up and management. Hospital course The patient was admitted for treatment of Hypotension Likely related to medications and dehydration as BUN elevated and has concentrated CBC. Responded to IVF fluid and Holding blood pressure medications of Imdur, Lisinopril and Metoprolol. His Imdur and MEtoprolol were restarted while Lisinopril kept on hold. Imdur decreased to 30 mg daily instead of BID. repeated orthostatic vitals were stable and he was able to ambulate with no reported lightheadedness or weakness. To discharge on MEtoprolol and Imdur 30 daily for now. monitor BP at home and follow with PCP for further adjustments. 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 Time Attestation Discharge Coordination Time (in mins): 27 Quality: Safe Use of Opioids Does Pt have an Active Cancer Diagnosis on the Problem List?: No Quality: Stroke Does the patient have a stroke diagnosis?: No Physical Exam Vital Signs: Vital Signs: Last Vital Signs Temp 97.3 F 12/18/24 12:00 Pulse 86 12/18/24 12:00 Resp 18 12/18/24 12:00 BP 164/83 H 12/18/24 12:00 Pulse Ox 93 12/18/24 12:00 O2 Del Method Room Air 12/18/24 12:00 BMI result Body Mass Index 31.5 Const: Other: Constitutional : Awake, interactive, not in distress Neck : Normal inspection, Supple Cardiovascular : RRR, no JVP, no lower extremity edema Respiratory : good bilateral air entry, no crackles, wheezes or rhonchi Gastrointestinal: soft, lax, Normal bowel sounds, Non tender Skin : Warm, Dry Neurological : Alert & oriented x3, No focal deficit DS: Data Data Completed and Pending Labs on day of discharge: Laboratory Results - last 24 hr 12/17/24 12/17/24 12/17/24 13:19 14:59 16:03 WBC 8.7 RBC 6.13 H Hgb 18.4 H Hct 56.0 H MCV 91.4 MCH 30.0 MCHC 32.9 RDW 14.1 Plt Count 191 MPV 10.9 Immature Gran % (Auto) 0.2 Neut % (Auto) 61.3 Lymph % (Auto) 25.4 [place] % (Auto) 11.9 H Eos % (Auto) 0.9 Baso % (Auto) 0.3 Lymph # (Auto) 2.2 [place] # (Auto) 1.0 Eos # (Auto) 0.1 Baso # (Auto) 0.0 Abs Immat Gran (auto) 0.02 Absolute Neuts (auto) 5.3 Absolute Nucleated RBC 0.000 Nucleated RBC % (auto) 0.0 PT 11.0 INR 1.0 Sodium 138 Potassium 4.8 Chloride 106 Carbon Dioxide 25 Anion Gap 12 BUN 31 H Creatinine 1.31 Estim Creat Clear Calc 56.5 Estimated GFR 54 POC Glucose Random Glucose 219 H Lactic Acid 1.4 Calcium 8.7 Total Bilirubin 0.4 Direct Bilirubin 0.1 AST 16 ALT 20 Alkaline Phosphatase 102 Troponin I High Sens 22.7 16.9 B-Natriuretic Peptide 111 H Total Protein 6.7 Albumin 3.8 Lipase 21 Urine Color Yellow Urine Appearance Clear Urine pH 5.5 Ur Specific [place] 1.015 Urine Protein Trace Urine Glucose (UA) Negative Urine Ketones Trace Urine Blood Negative Urine Nitrite Negative Ur Leukocyte Esterase Negative Influenza Type A (PCR) NEGATIVE Influenza Type B (PCR) NEGATIVE RSV RNA Qual (PCR) NEGATIVE SARS-CoV-2 RNA (RT-PCR) NEGATIVE 12/17/24 12/17/24 12/17/24 16:50 17:39 20:21 WBC RBC Hgb Hct MCV MCH MCHC RDW Plt Count MPV Immature Gran % (Auto) Neut % (Auto) Lymph % (Auto) [place] % (Auto) Eos % (Auto) Baso % (Auto) Lymph # (Auto) [place] # (Auto) Eos # (Auto) Baso # (Auto) Abs Immat Gran (auto) Absolute Neuts (auto) Absolute Nucleated RBC Nucleated RBC % (auto) PT INR Sodium Potassium Chloride Carbon Dioxide Anion Gap BUN Creatinine Estim Creat Clear Calc Estimated GFR POC Glucose 149 H 151 H 213 H Random Glucose Lactic Acid Calcium Total Bilirubin Direct Bilirubin AST ALT Alkaline Phosphatase Troponin I High Sens B-Natriuretic Peptide Total Protein Albumin Lipase Urine Color Urine Appearance Urine pH Ur Specific [place] Urine Protein Urine Glucose (UA) Urine Ketones Urine Blood Urine Nitrite Ur Leukocyte Esterase Influenza Type A (PCR) Influenza Type B (PCR) RSV RNA Qual (PCR) SARS-CoV-2 RNA (RT-PCR) 12/18/24 12/18/24 12/18/24 07:05 07:14 11:02 WBC 8.0 RBC 5.67 Hgb 17.2 Hct 52.0 MCV 91.7 MCH 30.3 MCHC 33.1 RDW 13.4 Plt Count 171 MPV 11.4 Immature Gran % (Auto) 0.2 Neut % (Auto) 51.9 Lymph % (Auto) 32.1 [place] % (Auto) 13.2 H Eos % (Auto) 2.4 Baso % (Auto) 0.2 Lymph # (Auto) 2.6 [place] # (Auto) 1.1 Eos # (Auto) 0.2 Baso # (Auto) 0.0 Abs Immat Gran (auto) 0.02 Absolute Neuts (auto) 4.2 Absolute Nucleated RBC 0.000 Nucleated RBC % (auto) 0.0 PT INR Sodium 142 Potassium 3.7 D Chloride 109 H Carbon Dioxide 25 Anion Gap 12 BUN 20 H Creatinine 0.88 Estim Creat Clear Calc 84.1 Estimated GFR > 60 POC Glucose 113 246 H Random Glucose 92 Lactic Acid Calcium 8.7 Total Bilirubin Direct Bilirubin AST ALT Alkaline Phosphatase Troponin I High Sens B-Natriuretic Peptide Total Protein Albumin Lipase Urine Color Urine Appearance Urine pH Ur Specific [place] Urine Protein Urine Glucose (UA) Urine Ketones Urine Blood Urine Nitrite Ur Leukocyte Esterase Influenza Type A (PCR) Influenza Type B (PCR) RSV RNA Qual (PCR) SARS-CoV-2 RNA (RT-PCR) Imaging Chest x-ray: Radiologist's impression: ITS Impressions Chest X-Ray 12/17/24 13:00 IMPRESSION: Left basilar discoid atelectasis. Otherwise no active disease. Electronically signed by: Teo Naranjo MD 12/17/2024 01:40 PM EDT RP Discharge Plan Discharge Anticipated Discharge Date/Time: 12/18/24 12:53 Patient Disposition: Home, Self-Care Discharge Diagnosis: Hypotension Referrals: Physician,Unknown J [Primary Care Provider] - 1 Week Discharge Medications: New hydrocortisone 1 % Cream 1 appl topical DAILY Qty: 28.4 1RF Protocol: Apply to: Apply to: Feet Continued aspirin 81 mg Tablet,Delayed Release (Dr/Ec) 81 mg PO DAILY metoprolol succinate 25 mg tablet extended release 24 hr 25 mg PO DAILY carbamazepine 200 mg tablet extended release 12 hr 200 mg PO DAILY atorvastatin 80 mg tablet 80 mg PO BEDTIME clopidogrel 75 mg tablet 75 mg PO DAILY pregabalin 200 mg capsule 200 mg PO BID ropinirole 2 mg tablet 2 mg PO BID famotidine 20 mg tablet 20 mg PO BID amitriptyline 10 mg tablet 10 mg PO BEDTIME Trulicity 4.5 mg/0.5 mL pen injector 4.5 mg subcut LARA insulin glargine [Basaglar KwikPen U-100 Insulin] 100 unit/mL (3 mL) insulin pen 25 unit subcut BID Fiasp U-100 Insulin 100 unit/mL solution See Protocol subcut TIDAC Protocol: Insulin Correction Scale Less than or equal to 110 ---- Give (units): 0 111 to 150 Give (units): 0 151 to 200 Give (units): 2 201 to 250 Give (units): 4 251 to 300 Give (units): 6 301 to 350 Give (units): 8 Greater than 350 Give (units): 10 Call MD if Blood Glucose > : 350 Changed isosorbide mononitrate 30 mg tablet extended release 24 hr 30 mg PO DAILY Qty: 90 0RF Held lisinopril 5 mg tablet 5 mg PO DAILY Hold Instructions: Monitor blood pressure at home before restarting Discharge Orders: Discharge Order (Routine); Ordered 12/18/24 Ordered By: Roosevelt Maldonado Diet: Low salt diet Activity on Discharge: As tolerated Stand Alone Forms: Patient Portal Discharge page Print Language: Ken[place] Care Plan Goals: Hold Lisinopril for now Take Imdur 30 mg (Isosorbide mononitrate) only in morning, 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 Health Concerns: Low blood pressure Plan of Treatment: Hold Lisinopril Decrease Imdur Assessment: as above
[2024-12-18] MEDS: Insulin Lispro 100 UNIT/ML 3 ML VIAL SUBCUT (13:17)
--- NOTE | 2024-12-18 14:16 | MHC.CM.PN ---
PT DCD HOME SELF CARE
--- NOTE | 2024-12-18 14:17 | MHC.CM.PN ---
PT LIVES WITH DGHTER IS INDEPNDENT HAS A RID HOME DC PLAN HOME N/S
== END 2024-12-18 13:00 | disposition home or self-care (01) ==
LOC: HO.ED 14:46 → HO.EDOVER 15:34 → HO.S3 16:17
PROVIDERS: Admitting Provider Student in an Organized Health Care Education/Training Program; Emergency Provider Emergency Medicine; Visit Provider Student in an Organized Health Care Education/Training Program
DX: I95.2 Hypotension due to drugs (principal); E86.0 Dehydration; R07.9 Chest pain, unspecified; E11.9 Type 2 diabetes mellitus without complications; I10 Essential (primary) hypertension; I25.10 Atherosclerotic heart disease of native coronary artery without angina pectoris; G62.9 Polyneuropathy, unspecified; G47.36 Sleep related hypoventilation in conditions classified elsewhere; R09.02 Hypoxemia; Z79.899 Other long term (current) drug therapy; Z03.818 Encounter for observation for suspected exposure to other biological agents ruled out
CPT/HCPCS: 0241U; 36415; 71045; 80048; 80076; 81003; 82947; 83036; 83605; 83690; 83880; 84484; 85025; 85610; 87040; 93005; 96127; 96360; 96361; 99202; 99221; 99285; J7120

== ENCOUNTER → 2024-12-17 12:34 | Outpatient (BNV) | payer MEDICARE, MEDICAID, SELFPAY | PROVIDERS: Admitting Provider Student in an Organized Health Care Education/Training Program; Emergency Provider Emergency Medicine; Visit Provider Internal Medicine Cardiovascular Disease | DX: R94.31 Abnormal electrocardiogram [ECG] [EKG] (principal); R07.9 Chest pain, unspecified | CPT/HCPCS: 93010 ==

== ENCOUNTER → 2024-12-17 12:58 | Outpatient (BNV) | payer MEDICARE, MEDICAID, SELFPAY | PROVIDERS: Emergency Provider Emergency Medicine; Visit Provider Radiology Diagnostic Radiology | DX: J98.11 Atelectasis (principal) | CPT/HCPCS: 71045 ==

== ENCOUNTER → 2024-12-17 15:23 | Outpatient (BNV) | payer MEDICARE, MEDICAID, SELFPAY | PROVIDERS: Admitting Provider Student in an Organized Health Care Education/Training Program; Emergency Provider Emergency Medicine; Visit Provider Student in an Organized Health Care Education/Training Program | DX: I95.2 Hypotension due to drugs (principal); E86.0 Dehydration | CPT/HCPCS: 99223; 99238 ==

== ENCOUNTER 2024-12-25 08:22 | Outpatient (AMB) | payer MEDICARE, MEDICAID, SELFPAY ==
[2024-12-25 08:26] VITALS: BP 118/80; PULSE 83; RESP 18; TEMP 36.6; O2SAT 90; BMI 30.2
--- NOTE | 2024-12-25 08:26 | MHC.PC.OV ---
Vital Signs 12/25/24 08:26 Height 5 ft 7 in Weight 192 lb 12.8 oz BMI 30.2 BP 118/80 Blood Pressure Location Rt brachial Position Sitting Respiration 18 Pulse 83 Pulse Source Pulse Oximeter Temp 97.9 F Temp Source Oral Pulse Oximetry (%) 90 L Oxygen Delivery Method Room Air Intake Visit Reasons: [facility] 12/18 Intake Note: Patient is here for hospital discharge follow up. Patient was discharged from [facility] in [place], [place] on 12/18/2024. Home Decorator Required: No Accompanied by: Daughter Allergies hazelnuts Allergy (Severe, Uncoded 12/25/24 08:39) swelling, hives Medication List - Last Reconciled 12/25/24 by MILTON Linton amitriptyline 10 mg PO BEDTIME aspirin 81 mg PO DAILY atorvastatin 80 mg PO BEDTIME carbamazepine ER 200 mg PO DAILY clopidogrel 75 mg PO DAILY dulaglutide (Trulicity) 4.5 mg subcut LARA famotidine 20 mg PO BID insulin aspart (niacinamide) 100 unit/mL (Fiasp U-100 Insulin) See Protocol sliding scale doses subcut TIDAC insulin glargine (Basaglar KwikPen U-100 Insulin) 25 units subcut BID isosorbide mononitrate ER 30 mg PO DAILY lisinopril 5 mg PO DAILY metoprolol succinate ER 25 mg PO DAILY pregabalin 200 mg PO BID ropinirole 2 mg PO BID Tobacco use date assessed: 12/25/24 Fall risk assessment: No Falls in past year Last assessed Fall Risk: 12/25/24 Dental Screening Dental Screen Date: 12/25/24 Did you have a dental visit in the last 12 months?: No Did you have a dental problem in the last 6 months where you did not have access to dental care?: No Was dental information given to patient?: No HPI [facility] 12/18 HPI Details The patient is a 69-year-old male who was new to the practice. Today's his 2nd visit, as his 1st visit he was sent to the emergency room for low blood pressure In [facility] he was found to be dehydrated plus med induced hypertensive. All his blood pressure medications were held initially, metoprolol 25 mg ER was restarted and isosorbide mononitrate ER was decreased to 30 mg and lisinopril continued held. Patient was discharged home and was told to complete orthostatic BP for a week to reports to PCP He is returning after being evaluated in [facility] ER orthostatic blood pressure: 12/25/2024: sitting 132/82, standing 105/72, 12/24 sitting 105/73 and standing 118/77, recorded by daughter Patient blood pressure is within goal in office. Denies chest pain, shortness of breath, reports only getting this with exertion intermittently Type 2 diabetes: The patient is on Trulicity 4.5 mg, NovoLog per sliding scale and glargine 25 units b.i.d. Last A1c was 7.3%-daughter reporting much improvement from where it was prior. 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 The patient has an appointment with Cardiology tomorrow for further evaluation. He is new to the office and he is uncertain of the full extent of his heart condition CAD: History of coronary artery stenting, continue aspirin 81 mg and atorvastatin 80 mg, and Plavix 75 mg daily Intermittent mild chest pain, does not seem to be angina in nature though he has nitrogen tablets as needed Neuropathy: Chronic leg pain that has been treated with pregabalin 200 mg b.i.d. Restless legs syndrome: Managed with Ropinirole 2 mg b.i.d.----this seemed to be overlapping with his severe neuropathy Patient also has home O2 as needed: Unclear lung condition or if this is heart related Elevated prostate: Reports seen an urologist on the 16 of August, reports that his last PSA was 9.4, and that he has been monitored for prostate cancer due to his family history. Depression: Reports that this is being managed with amitriptyline 10 mg at bedtime, which he uses for sleep as well HLD: He is on atorvastatin 80 mg daily-encouraged lifestyle modification He reports an remote history of coccyx fracture that he was seeing orthopedics for [facility] Medical History (Updated 01/01/25 @ 00:29 by MILTON Linton) Depression Restless leg syndrome Neuropathy Diabetes mellitus CVA (cerebral vascular accident) Type 2 diabetes mellitus HTN (hypertension) Surgical History (Updated 12/26/24 @ 11:33 by WAYLON Goel) History of carpal tunnel surgery History of surgery Family History Father No problems noted. Mother Heart disease Social History Household Members: Other Household Members Other:: daughter Housing: House Do you presently have visiting nurse or other home services: No Alcohol intake: current Alcohol intake frequency: holidays/special occasions only Alcohol type: beer Patient Tobacco Use Status: Former Tobacco user Tobacco use type: Cigarette e-Cigarette/Vaping Use: Never Used Second Hand Smoke Exposure: No service: No Current occupational status: retired and disabled Cognitive needs: Yes Hearing needs: No Vision needs: Yes Questionnaire Thrive Questionnaire Date Thrive assessed: 12/25/24 I am a: Patient What is your living situation today?: I have a steady place to live Within the past 12 months, did the food you bought not last and you didn't have the money to get more?: Never true Within the past 12 months, did you worry whether your food would run out before you got money to buy more?: Never true Do you have trouble paying for medicines?: No Do you have trouble getting transportation to medical appointments?: No Do you have trouble paying your heating and electricity bill?: No Do you have trouble taking care of your child, family member or friend?: No Do you have trouble with day-to-day activities such as bathing, preparing meals, shopping, managing finances, etc.?: No Are you currently unemployed and looking for a job?: No Are you interested in more education?: No Please select the resources that you would like help with: None Currently or been in a relationship where the following occur: No concerns reported THRIVE Score: 0 AUDIT C Alcohol Use Questionnaire (AUDIT-C) 1. How often do you have a drink containing alcohol?: Monthly or less 2. How many drinks containing alcohol do you have on a typical day when you are drinking?: 1 or 2 3. How often do you have six or more drinks on one occasion?: Never Total Score: 1 Score Reviewed/Action Taken: No KAY-7 AMB Questionnaire KAY-7 Date KAY - 7 assessed: 12/17/24 Source: Developed by Drs. Neel Muhammad, Alissa Ayoub, Gómez Sargent and colleagues, with an educational jorge from [employer]. Review of Systems Const Denies headache(s), Reports lethargy and Reports weakness Eyes Denies loss of vision ENT Denies vertigo, Denies dizziness, Denies headache(s) and Denies sore throat Card Reports chest pain (intermittent, mild in nature), Denies leg edema, Denies lightheadedness and Reports dyspnea on exertion Resp Denies cough, Denies hemoptysis, Reports dyspnea on exertion and Denies wheezing GI Denies abdominal pain, Denies melena, Denies constipation, Denies diarrhea and Denies vomiting Denies dysuria, Reports urinary frequency (attributed to swollen prostate), Denies urinary urgency and Reports other Musc Reports numbness (Bilateral feet) and Reports tingling (Bilateral feet) Neuro Denies Abnormal speech present, Denies behavioral changes, Denies vertigo, Denies dizziness, Denies headache(s), Denies loss of vision, Denies memory loss, Reports numbness (Bilateral feet), Reports tingling (Bilateral feet) and Reports weakness Psych Denies anxiety, Denies behavioral changes, Reports depression, Denies memory loss, Denies panic attacks and Reports other (Insomnia) Carl/Lymph Denies easy bleeding and Denies easy bruising Aller/Immun Denies wheezing Physical exam (Primary Care) Vital Signs: Last Vital Signs Temp 97.9 F 12/25/24 08:26 Pulse 83 12/25/24 08:26 Resp 18 12/25/24 08:26 BP 118/80 12/25/24 08:26 Pulse Ox 90 L 12/25/24 08:26 Oxygen Delivery Method Room Air 12/25/24 08:26 BMI result Body Mass Index 30.2 Tobacco/Smoking Status: Tobacco use Status Tobacco use date assessed 12/25/24 12/25/24 08:37 Patient Tobacco Use Status Former Tobacco user 12/25/24 08:37 Tobacco use type Cigarette 12/25/24 08:37 e-Cigarette/Vaping Use Never Used 12/25/24 08:37 Thrive Assessment: Date of Thrive Assessment Date Thrive assessed 12/25/24 12/25/24 08:37 Currently or been in a relationship where the following occur: No concerns reported Const General: healthy appearing, no acute distress, alert and awake Nutritional Appearance: well nourished Orientation/consciousness: oriented to person, oriented to place and oriented to time HENMT Ears: external ears normal General nose exam: Normal external nose present Eyes Conjunctivae: conjunctivae normal Sclerae: sclerae normal Pupils: Equal, round and reactive pupils present Neck Neck: Yes no lymphadenopathy and Yes no JVD Thyroid: Thyroid normal Carotids: no bruits Resp Effort & Inspection: normal respiratory effort and not tachypneic Auscultation: no crackles, no rales, no rhonchi and no wheezes Cardio Rate: regular rate Rhythm: regular rhythm Heart sounds: no murmurs and normal S1 and S2 GI Palpation (GI): Soft to palpation, nontender, no hepatomegaly and no splenomegaly Auscultation: normal bowel sounds Skin General skin exam: no rashes or lesions noted and dry skin Neuro General: oriented to person, oriented to place and oriented to time Cranial nerves: Yes Equal, round and reactive pupils present Speech: No Abnormal speech present Gait exam (Neuro): Normal gait present, Antalgic gait present and Assisted gait required (Cane) Motor exam (neuro): no tremor noted Extrem Right upper extremity: full ROM Left upper extremity: full ROM Right lower extremity: full ROM; no edema Left lower extremity: full ROM; no edema Psych Mental Status: mental status grossly normal Speech and movement: Normal speech and movement present Affect: normal affect Attitude: cooperative Thought process: Normal thought process present Coding Level of Care Code Est Pt Level 4 (56928) Diagnoses Hypertension, unspecified type I10 Hypertension type: unspecified Type 2 diabetes mellitus with hyperglycemia, with long-term current use of insulin E11.65; Z79.4 Diabetes mellitus type: type 2 Diabetes mellitus terminal superintendent insulin use: with mcfp use Diabetes mellitus complication status: with hyperglycemia Hyperlipidemia, unspecified hyperlipidemia type E78.5 Hyperlipidemia type: unspecified Coronary artery disease of [place] heart with stable angina pectoris, unspecified vessel or lesion type I25.118 Coronary Disease-Associated Artery/Lesion type: unspecified vessel or lesion type [place] vs. transplanted heart: [place] heart Associated angina: with stable angina Neuropathy G62.9 Restless leg syndrome G25.81 Depression, unspecified depression type F32.A Depression Type: unspecified Time Spent (min) 43 Assessment & Plan Assessment & Plan (1) HTN (hypertension): Code(s): I10 - Essential (primary) hypertension Category: Medical Qualifiers: Hypertension type: unspecified Qualified Code(s): I10 - Essential (primary) hypertension Plan: Encouraged DASH diet and activity as tolerated-goal systolic is less than 130 mmhg Refrain from alcohol use and if you smoke, smoking cessation is strongly advised Continue metoprolol 25 mg ER daily, isosorbide 30 mg ER daily (2) Diabetes mellitus: Code(s): E11.9 - Type 2 diabetes mellitus without complications Category: Medical Qualifiers: Diabetes mellitus type: type 2 Diabetes mellitus terminal superintendent insulin use: with mcfp use Diabetes mellitus complication status: with hyperglycemia Qualified Code(s): E11.65 - Type 2 diabetes mellitus with hyperglycemia; Z79.4 - care home (current) use of insulin Plan: Last A1c 7.2%-slightly above goal of less than 7% Reinforced low sugar/carbohydrate diet and activity as tolerated Continue glargine 25 units b.i.d., NovoLog per sliding scale and Trulicity 4.5 mg subQ weekly (3) Hyperlipemia: Code(s): E78.5 - Hyperlipidemia, unspecified Category: Medical Qualifiers: Hyperlipidemia type: unspecified Qualified Code(s): E78.5 - Hyperlipidemia, unspecified Plan: Discussed lifestyle modifications including dietary changes and physical activity Continue atorvastatin 80 mg daily We will send the patient for lipid panel further evaluate (4) CAD (coronary artery disease): Code(s): I25.10 - Atherosclerotic heart disease of [place] coronary artery without angina pectoris Category: Medical Qualifiers: Coronary Disease-Associated Artery/Lesion type: unspecified vessel or lesion type [place] vs. transplanted heart: [place] heart Associated angina: with stable angina Qualified Code(s): I25.118 - Atherosclerotic heart disease of [place] coronary artery with other forms of angina pectoris Plan: Status post coronary artery stenting, unknown vessel, EKG done 12/17/2024 shows normal sinus rhythm with ST and T-wave abnormalities in the inferior lateral leads suggestive of possible ischemia Continue aspirin 81 mg daily, atorvastatin 80 mg daily (5) Neuropathy: Code(s): G62.9 - Polyneuropathy, unspecified Category: Medical Plan: Continue pregabalin 200 mg b.i.d. May use compression stockings to improve circulation (6) Restless leg syndrome: Code(s): G25.81 - Restless legs syndrome Category: Medical Plan: Continue ropinirole 2 mg b.i.d. (7) Depression: Code(s): F32.A - Depression, unspecified Category: Medical Qualifiers: Depression Type: unspecified Qualified Code(s): F32.A - Depression, unspecified Plan: Encouraged CBT Continue amitriptyline 25 mg at bedtime Orders: Orders Lipid Panel 12/25/24 E11.65 - Type 2 diabetes mellitus with hyperglycemia, I10 - Essential (primary) hypertension, I63.9 - Cerebral infarction, unspecified, I95.2 - Hypotension due to drugs, R42 - Dizziness and giddiness, Z79.4 - care home (current) use of insulin Comprehensive [place]. Panel Fast 12/25/24 E11.65 - Type 2 diabetes mellitus with hyperglycemia, I10 - Essential (primary) hypertension, I63.9 - Cerebral infarction, unspecified, I95.2 - Hypotension due to drugs, R42 - Dizziness and giddiness, Z79.4 - care home (current) use of insulin Hemoglobin A1c 12/25/24 E11.65 - Type 2 diabetes mellitus with hyperglycemia, I10 - Essential (primary) hypertension, I63.9 - Cerebral infarction, unspecified, I95.2 - Hypotension due to drugs, R42 - Dizziness and giddiness, Z79.4 - care home (current) use of insulin TSH reflex Free T4 12/25/24 E11.65 - Type 2 diabetes mellitus with hyperglycemia, I10 - Essential (primary) hypertension, I63.9 - Cerebral infarction, unspecified, I95.2 - Hypotension due to drugs, R42 - Dizziness and giddiness, Z79.4 - continuous churn buttermaker (current) use of insulin Referrals Podiatry Referral E11.65 - Type 2 diabetes mellitus with hyperglycemia, Z79.4 - care home (current) use of insulin Medications: New ropinirole 2 mg PO BID 60 tabs 3RF atorvastatin 80 mg PO BEDTIME 90 tabs 2RF insulin aspart U-100 per sliding scale tid with meals and at bedtime 1 sliding scale dose subcut USEASDIRECTD 10 mL 3RF nitroglycerin do not exceed 3 doses per episode 0.3 mg sublingual Q5M PRN 30 tabs 3RF chest pain dulaglutide (Trulicity) 4.5 mg (0.5 mL) subcut LARA 2 mL 0RF clopidogrel 75 mg PO DAILY 90 tabs 2RF pregabalin 200 mg PO BID 60 caps 0RF On Hold insulin glargine (Basaglar KwikPen U-100 Insulin) Hold Comment: Doctor's Order 25 units (0.25 mL) subcut BID 15 mL 3RF insulin glargine-yfgn (Semglee (insulin glargine-yfgn) Pen) Hold Comment: Doctor's Order 25 units (0.25 mL) subcut BID 15 mL 3RF
== END 2024-12-25 09:26 | disposition home or self-care (01) ==
DX: I10 Essential (primary) hypertension (principal); E11.65 Type 2 diabetes mellitus with hyperglycemia; Z79.4 Long term (current) use of insulin; E78.5 Hyperlipidemia, unspecified; I25.118 Atherosclerotic heart disease of native coronary artery with other forms of angina pectoris; G62.9 Polyneuropathy, unspecified; G25.81 Restless legs syndrome; F32.A Depression, unspecified

== ENCOUNTER → 2024-12-25 08:22 | Outpatient (BNVA) | payer MEDICARE, MEDICAID, SELFPAY | DX: I10 Essential (primary) hypertension (principal); E78.5 Hyperlipidemia, unspecified; E11.65 Type 2 diabetes mellitus with hyperglycemia; Z79.4 Long term (current) use of insulin; I25.118 Atherosclerotic heart disease of native coronary artery with other forms of angina pectoris; G62.9 Polyneuropathy, unspecified; G25.81 Restless legs syndrome; F32.A Depression, unspecified | CPT/HCPCS: 99212 ==

== ENCOUNTER 2024-12-26 09:26 | Outpatient (AMB) | payer MEDICARE, MEDICAID, SELFPAY ==
--- NOTE | 2024-12-26 09:42 | MHC.OFFVIS ---
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/ Chest pain (NS) Allergies hazelnuts Allergy (Severe, Uncoded 12/25/24 08:39) swelling, hives Medication List - Last Reconciled 12/26/24 by WAYLON Goel amitriptyline 10 mg PO BEDTIME aspirin 81 mg PO DAILY atorvastatin 80 mg PO BEDTIME clopidogrel 75 mg PO DAILY dulaglutide (Trulicity) 4.5 mg (0.5 mL) subcut LARA famotidine 20 mg PO BID insulin aspart (niacinamide) 100 unit/mL (Fiasp U-100 Insulin) See Protocol sliding scale doses subcut TIDAC insulin aspart U-100 (Novolog U-100 Insulin aspart) 1 sliding scale dose subcut USEASDIRECTD insulin glargine (Basaglar KwikPen U-100 Insulin) 25 units (0.25 mL) subcut BID isosorbide mononitrate ER 30 mg PO DAILY metoprolol succinate ER 25 mg PO DAILY nitroglycerin 0.3 mg sublingual Q5M PRN pregabalin 200 mg PO BID ropinirole 2 mg PO BID HPI 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 He was treated with IV fluids with improvement in his readings. He was referred to Cardiology in follow-up. Today he presents for cardiology consultation. He reports that he does have a cardiac history and had been followed by a doctor in [place]. He is not able to recall the doctors name at this time. He is describing having coronary disease with coronary stent placement. He is now in this area and living with his daughter. He is working on establishing appropriate medical care. He does get some periodic atypical sounding chest discomfort. He is mostly sedentary. He has some shortness of breath with exertion. No PND, orthopnea or edema. No heart palpitations, lightheadedness, presyncope, syncope. He drinks alcohol occasionally. He has not oxygen at home that he wears PRN. He is a prior smoker, quit August 2021. He says his mother had history of pacemaker. No other known family history of heart disease. Daughter is present. [facility] Medical History Diabetes mellitus CVA (cerebral vascular accident) Type 2 diabetes mellitus HTN (hypertension) Surgical History History of carpal tunnel surgery History of surgery Family History Father No problems noted. Mother Heart disease Social History (Reviewed 12/26/24 @ 11: by WAYLON Goel) Household Members: Other Household Members Other:: daughter Housing: House Do you presently have visiting nurse or other home services: No Alcohol intake: current Alcohol intake frequency: holidays/special occasions only Alcohol type: beer Patient Tobacco Use Status: Former Tobacco user Tobacco use type: Cigarette e-Cigarette/Vaping Use: Never Used Second Hand Smoke Exposure: No service: No Current occupational status: retired and disabled Cognitive needs: Yes Hearing needs: No Vision needs: Yes Review of Systems Const All systems reviewed & are unremarkable except as noted in HPI and below Denies weakness ENT Denies dizziness Card Reports chest pain, Reports chest pain at rest, Reports chest pain with activity, Denies syncope, Denies rapid heart rate, Denies pedal edema, Denies edema, Denies leg edema, Denies lightheadedness, Denies palpitations, Denies dyspnea, Reports dyspnea on exertion and Denies orthopnea Resp Denies cough, Denies dyspnea and Reports dyspnea on exertion GI Denies hematochezia and Denies change in stool character Musc Reports abnormal gait (uses cane), Denies muscle cramps, Denies muscle weakness, Denies numbness, Denies radiating pain into limb and Denies tingling Neuro Reports abnormal gait (uses cane), Denies dizziness, Denies syncope, Denies numbness, Denies tingling and Denies weakness Endo Denies palpitations Physical Exam Vital Signs: Last Vital Signs Pulse 80 12/26/24 09:43 BP 112/60 12/26/24 09:43 BMI result Body Mass Index 30.0 Const General: cooperative, healthy appearing, comfortable and no acute distress Orientation/consciousness: patient oriented x3 Neck Other: bilateral scars from carotid endarterectomies - no bruit noted Neck: Yes normal visual inspection and Yes no JVD Resp Effort & Inspection: normal respiratory effort Auscultation: clear to auscultation bilaterally, no rales, no rhonchi and no wheezes Cardio Other: heart tones distant and difficult to determine if murmur is present. Rate: regular rate Rhythm: regular rhythm Heart sounds: S1 normal heart sound present and S2 normal heart sound present Neuro General: patient oriented x3 Extrem General: Yes normal to inspection and No no pedal edema Psych Appearance: grossly normal Mental Status: mental status grossly normal Speech and movement: Normal speech and movement present Assessment & Plan Assessment & Plan (1) CAD (coronary artery disease): Code(s): I25.10 - Atherosclerotic heart disease of [place] coronary artery without angina pectoris Category: Medical Plan: Reported history of CAD with coronary stent, unknown vessel, while living in [place]. He is reporting atypical chest discomfort and some shortness of breath. EKG done 12/17/2024 shows normal sinus rhythm with ST and T-wave abnormalities in the inferior lateral leads suggestive of possible ischemia, rate 79. 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 Will order pharmacological nuclear stress test to evaluate for ischemia. He ambulates with a cane and tells me he will not be able to walk on a treadmill. Will order echocardiogram to assess for structural heart disease. Will have him continue his current medications including Plavix, atorvastatin, isosorbide, metoprolol and lisinopril. Signs and symptoms of angina reviewed with him. Cardiology follow-up when test results are available. (2) Carotid stenosis, bilateral: Comment: Bilateral carotid endarterectomies in [place] Code(s): I65.23 - Occlusion and stenosis of bilateral carotid arteries Category: Medical Plan: Reported history of bilateral carotid endarterectomies. Scars noted on examination, no bruit audible. He denies any recent re-evaluation. Will order a carotid ultrasound for surveillance of carotid disease. Continue Plavix and statin. (3) Stented coronary artery: Code(s): Z95.5 - Presence of coronary angioplasty implant and graft Category: Surgical Plan: As above, unknown vessel (4) HTN (hypertension): Code(s): I10 - Essential (primary) hypertension Category: Medical Plan: Blood pressure goal less than 130/80, well controlled at present. Continue-lisinopril and metoprolol. Labs 12/18/2024 show potassium 3.7, creatinine 0.88. (5) Diabetes mellitus: Code(s): E11.9 - Type 2 diabetes mellitus without complications Category: Medical Qualifiers: Diabetes mellitus complication status: with hyperglycemia Diabetes mellitus halfway insulin use: with termite helper use Diabetes mellitus type: type 2 Qualified Code(s): E11.65 - Type 2 diabetes mellitus with hyperglycemia; Z79.4 - group home (current) use of insulin Plan: Hemoglobin A1c goal less than 7. Followed by PCP. (6) Hyperlipemia: Code(s): E78.5 - Hyperlipidemia, unspecified Category: Medical Plan: [place] LDL goal less than 70. No recent lipid profile for review. Will enter order. Continue atorvastatin 80 mg daily. (7) Chest pain: Code(s): R07.9 - Chest pain, unspecified Category: Medical Qualifiers: Chest pain type: precordial pain Qualified Code(s): R07.2 - Precordial pain Plan: Atypical as above Plan During the consultation, we reviewed the patient?s cardiac history of CAD and reported cardiac stent. I explained the necessity of an updated echocardiogram and a pharmacologic stress test, intended to elucidate current cardiac status and identify possible ischemia under physical duress. We addressed controlled blood glucose levels and previous hypotension episodes, maintaining dietary and fluid adjustments given his aversion to water. We discussed potential risks associated with existing heart conditions and benefits of scheduled testing, underlining the importance of compliance with pharmacologic therapy and lifestyle modifications. The patient was informed of centralized scheduling for upcoming assessments, emphasizing the plan to revert with test findings promptly to mitigate underlying vascular implications. Consent discussions around procedural evaluations were mindful of avoiding direct physical stressors, and clinical indications validated each diagnostic's prompt necessity. Routine follow-up was outlined, and pragmatically clarified appointment arrangements. Orders: Orders CA echo transthoracic complete 12/26/24 WAYLON Goel I25.10 - Atherosclerotic heart disease of [place] coronary artery without angina pectoris, R07.2 - Precordial pain US carotid duplex BI 12/26/24 BRANDON GoelC I65.23 - Occlusion and stenosis of bilateral carotid arteries CA lexiscan stress w gianluca 12/26/24 Mague Youngblood NP-C I25.10 - Atherosclerotic heart disease of [place] coronary artery without angina pectoris, R07.2 - Precordial pain, Z95.5 - Presence of coronary angioplasty implant and graft NM cardiolite stress test 12/26/24 BRANDON GoelC I25.10 - Atherosclerotic heart disease of [place] coronary artery without angina pectoris, R07.2 - Precordial pain, Z95.5 - Presence of coronary angioplasty implant and graft Medications: On Hold insulin glargine (Basaglar KwikPen U-100 Insulin) Hold Comment: Doctor's Order 25 units (0.25 mL) subcut BID 15 mL 3RF MILTON L[place] Patient Instructions: - Schedule and complete an echocardiogram and pharmacologic stress test - Monitor blood sugar closely and maintain medications as prescribed - Continue to record blood pressure readings, noting any episodes of hypotension - Increase fluid intake, using flavor packets if needed, to improve hydration - Wear compression stockings as needed to manage potential edema - Expect a follow-up call to schedule further appointments or procedures Patient was informed and verbally consented to the use of an ambient scribe for clinic note documentation during this visit. Visit time spent on chart review, interview, assessment, orders, documentation. Coding Level of Care Code New Pt Level 4 (75574) Complex EM visit Add On G2211 Diagnoses CAD (coronary artery disease) I25.10 Carotid stenosis, bilateral I65.23 Stented coronary artery Z95.5 HTN (hypertension) I10 Type 2 diabetes mellitus with hyperglycemia, with long-term current use of insulin E11.65; Z79.4 Diabetes mellitus complication status: with hyperglycemia Diabetes mellitus termite helper insulin use: with halfway use Diabetes mellitus type: type 2 Hyperlipemia E78.5 Precordial pain R07.2 Chest pain type: precordial pain Time Spent (min) 30
[2024-12-26 09:43] VITALS: BP 112/60; PULSE 80
== END 2024-12-26 10:32 | disposition home or self-care (01) ==
LOC: HO.HCS 09:27
PROVIDERS: Visit Provider Nurse Practitioner Family
DX: I25.10 Atherosclerotic heart disease of native coronary artery without angina pectoris (principal); I65.23 Occlusion and stenosis of bilateral carotid arteries; Z95.5 Presence of coronary angioplasty implant and graft; I10 Essential (primary) hypertension; E11.65 Type 2 diabetes mellitus with hyperglycemia; Z79.4 Long term (current) use of insulin; E78.5 Hyperlipidemia, unspecified; R07.2 Precordial pain
CPT/HCPCS: 99204; G2211

== ENCOUNTER → 2024-12-26 09:26 | Outpatient (BNVA) | payer MEDICARE, MEDICAID, SELFPAY | PROVIDERS: Visit Provider Nurse Practitioner Family | DX: I25.10 Atherosclerotic heart disease of native coronary artery without angina pectoris (principal); I65.23 Occlusion and stenosis of bilateral carotid arteries; E11.65 Type 2 diabetes mellitus with hyperglycemia; I10 Essential (primary) hypertension; E78.5 Hyperlipidemia, unspecified; R07.2 Precordial pain; Z79.4 Long term (current) use of insulin; Z95.5 Presence of coronary angioplasty implant and graft | CPT/HCPCS: 99202 ==

== ENCOUNTER 2025-01-29 08:40 | Outpatient (REF) | payer MEDICARE, MEDICAID, SELFPAY ==
--- OUTSIDE RECORDS SUMMARY | 2025-01-29 08:53 | XMS_ITS | Patient Health Record ---
Author Organization [facility] Address [address] [place] [id number] Care Team Providers Care Slunk Skin Curer Name Role Phone MaysNeel Unavailable [phone] Reason For Referral No Information Plan Of Treatment No Information
--- OUTSIDE RECORDS SUMMARY | 2025-01-29 08:53 | XMS_ITS | Clinical Summary ---
Author Organization [address] [facility] Address [address] [place] [address] Phone Care Team Providers Care Business Process Associate Name Role Phone Paco Christy SAMUEL Primary Care Provider Social History Tobacco Use Types Packs/Day Years Used Date Smoking Tobacco: Never Assessed Sex and Gender Information Value Date Recorded Sex Assigned at Not on file Legal Sex Male 8:22 AM EDT Gender Identity Not on file Sexual Orientation Not on file Plan of Treatment Upcoming Encounters Date Type Department Care Team ([facility] Contact Info) Description 04/15/2025 10:15 AM EDT Office Visit Orthopedic Surgery [facility] [address] [phone] Abhishek Quiros, DPM [address] [id number] Health Maintenance Due Date Last Done Comments Diabetes: Annual GFR (Glomer ular Filtration Rate) 1954 Diabetes: Annual Foot Exam 1964 Diabetes: Annual Retina Eye Exam 1964 DTaP,Tdap,and Td Vaccines (1 - Tdap) 1973 Pneumococcal Vaccine: 50+ Ye ars (1 of 2 - PCV) 1973 Zoster Vaccines (1 of 2) 2004 COVID-19 Vaccine ( - 2023-2 5 season) 2024 Abdominal Aortic Aneurysm (A AA) Screen 01/02/2025 Cholesterol Screening (Lipid Panel) 01/02/2025 Colorectal Cancer Screening: Colonoscopy 01/02/2025 Depression Screening 01/02/2025 Diabetes: Annual Urine Albumin-Creatinine Ratio (uACR) 01/02/2025 Diabetes: Blood Sugar Contro l Test (HGBA1C) 01/02/2025 Falls Risk Assessment 01/02/2025 Hepatitis C Screening 01/02/2025 Medicare Annual Wellness Visit 01/02/2025 Social Influencers of Health Screening 01/02/2025 Influenza Vaccine (Season Ended) 2025 RSV Immunization Adult Patie nts (1 - 1-dose 75+ series) 2029 HIB Vaccines Aged Out No longer eligi ble based on patient's age to complete this topic HPV Vaccines Aged Out No longer eligi ble based on patient's age to complete this topic Hepatitis A Vaccines Aged Out No long er eligible based on patient's age to complete this topic Hepatitis B Vaccines Aged Out No long er eligible based on patient's age to complete this topic IPV Vaccines Aged Out No longer eligi ble based on patient's age to complete this topic MMR Vaccines Aged Out No longer eligi ble based on patient's age to complete this topic Meningococcal ACWY Vaccine Aged Out N o longer eligible based on patient's age to complete this topic Meningococcal B Vaccine Aged Out No l onger eligible based on patient's age to complete this topic RSV Immunization Patients Un lidia 20 months Aged Out No longer eligible b ased on patient's age to complete this topic Varicella Vaccines Aged Out No longer eligible based on patient's age to complete this topic Insurance MEDICARE MEDICAID - [place] Care Teams Business Process Associate Relationship Specialty Start Date End Date Paco Christy FNP [address] [facility] [address] [place] [id number] PCP - General Family Medicine 01/02/25
[2025-01-29 09:55] LABS: Hemoglobin A1C 302.0519 umol/L; Total Hemoglobin (HGBA1C) 4730.5241 umol/L
[2025-01-29 10:39] LABS: Alanine Aminotransferase 24 U/L (0-40); Albumin Level 4.0 g/dL (3.5-5.0); Alkaline Phosphatase 101 U/L (39-117); Anion Gap 12 (12-20); Aspartate Amino Transferase 22 U/L (5-37); Blood Urea Nitrogen 15 mg/dL (9-16); Calcium 9.0 mg/dL (8.4-10.2); Carbon Dioxide 28 mmol/L (22-29); Chloride 107 mmol/L (96-108); Cholesterol 146 mg/dL (<200); Estimated Glomerular Filt Rate > 60; HDL Cholesterol 39 mg/dL (>40); Potassium 4.1 mmol/L (3.3-5.1); Sodium 143 mmol/L (135-145); Total Protein 6.8 g/dL (6.5-8.0); Triglycerides 136 mg/dL (<150)
== END 2025-01-29 08:41 | disposition home or self-care (01) ==
LOC: HO.LAB 08:40
DX: I63.9 Cerebral infarction, unspecified (principal); I10 Essential (primary) hypertension; E11.65 Type 2 diabetes mellitus with hyperglycemia; Z79.4 Long term (current) use of insulin; I95.2 Hypotension due to drugs
CPT/HCPCS: 36415; 80053; 80061; 83036; 84443

== ENCOUNTER 2025-02-13 14:19 | Outpatient (AMB) | payer MEDICARE, MEDICAID, SELFPAY ==
--- NOTE | 2025-02-13 14:22 | A.OFFPC_ITS ---
Vital Signs 02/13/25 14:24 Height 5 ft 7 in Weight 194 lb 8 oz BMI 30.5 BP 124/76 Blood Pressure Location Lt brachial Position Sitting Pulse 86 Pulse Source Pulse Oximeter Temp 97.6 F Temp Source Temporal Artery Scan Pulse Oximetry (%) 96 Oxygen Delivery Method Room Air Intake Visit Reasons: DM/HTN/CVA Shim Plug Cutter Required: No Accompanied by: Self / Same As Patient Allergies hazelnuts Allergy (Severe, Uncoded 12/25/24 08:39) swelling, hives Medication List - Last Reconciled 02/13/25 by MILTON Linton amitriptyline 10 mg PO BEDTIME aspirin 81 mg PO DAILY atorvastatin 80 mg PO BEDTIME clopidogrel 75 mg PO DAILY dulaglutide (Trulicity) 4.5 mg (0.5 mL) subcut LARA famotidine 20 mg PO BID insulin aspart U-100 (Novolog U-100 Insulin aspart) 1 sliding scale dose subcut USEASDIRECTD insulin glargine-yfgn (Semglee (insulin glargine-yfgn) Pen) 25 units (0.25 mL) subcut BID Held on 12/31/24. Instructions: Doctor's Order isosorbide mononitrate ER 30 mg PO DAILY metoprolol succinate ER 25 mg PO DAILY nitroglycerin 0.3 mg sublingual Q5M PRN pregabalin 200 mg PO BID ropinirole 2 mg PO BID Tobacco use date assessed: 02/13/25 Fall risk assessment: No Falls in past year Last assessed Fall Risk: 02/13/25 Dental Screening Dental Screen Date: 02/13/25 Did you have a dental visit in the last 12 months?: No Did you have a dental problem in the last 6 months where you did not have access to dental care?: No Was dental information given to patient?: Patient declined HPI DM/HTN/CVA HPI Details The patient is a 69-year-old male presenting follow appt for his chronic conditions: diabetes mellitus and associated cardiovascular concerns. The patient has been managing diabetes mellitus with insulin therapy, specifically Lantus, due to issues with insurance coverage for other insulin types. There have been challenges with medication adherence due to changes in insurance and medication availability. The patient also has a history of hypertension, managed with metoprolol, alth ough there have been issues with medication refills and insurance coverage. Blood pressure readings was noted to be low at home one day, with measurements of 96/55 mmHg in the right arm and 80/52 mmHg in the left arm, without associated symptoms of dizziness or chest pain, per daughter, otherwise his blood pressures have been normal The patient has hyperlipidemia manages with atorvastatin 80 mg, with recent lab results showing LDL cholesterol at 80 mg/dL and HDL cholesterol at 39 mg/dL. The patient has been advised to take omega-3 supplements to improve HDL levels. The patient reports occasional constipation, managed with MiraLAX and increased fluid intake. There is no report of diarrhea or other gastrointestinal symptoms. The patient is undergoing cardiovascular evaluation, including an upcoming echocardiogram and stress test, to further assess his heart disease/issues. Reports that on the move from [place] and [facility] his glucometer and would like this to be reordered. He also could use some more glucose strips and lancets. The patient reports that he has not received his placard/plate as yet and his wondering what is going on with it. [facility] Medical History Depression Restless leg syndrome Neuropathy Diabetes mellitus CVA (cerebral vascular accident) Type 2 diabetes mellitus HTN (hypertension) Surgical History History of carpal tunnel surgery History of surgery Family History Father No problems noted. Mother Heart disease Social History Household Members: Other Household Members Other:: daughter Housing: House Do you presently have visiting nurse or other home services: No Alcohol intake: current Alcohol intake frequency: holidays/special occasions only Alcohol type: beer Patient Tobacco Use Status: Former Tobacco user Tobacco use type: Cigarette e-Cigarette/Vaping Use: Never Used Second Hand Smoke Exposure: No service: No Current occupational status: retired and disabled Cognitive needs: Yes Hearing needs: No Vision needs: Yes Questionnaire Thrive Questionnaire Date Thrive assessed: 02/13/25 I am a: Patient What is your living situation today?: I have a steady place to live Within the past 12 months, did the food you bought not last and you didn't have the money to get more?: Never true Within the past 12 months, did you worry whether your food would run out before you got money to buy more?: Never true Do you have trouble paying for medicines?: No Do you have trouble getting transportation to medical appointments?: No Do you have trouble paying your heating and electricity bill?: No Do you have trouble taking care of your child, family member or friend?: No Do you have trouble with day-to-day activities such as bathing, preparing meals, shopping, managing finances, etc.?: No Are you currently unemployed and looking for a job?: No Are you interested in more education?: No Please select the resources that you would like help with: None Currently or been in a relationship where the following occur: No concerns reported THRIVE Score: 0 KAY-7 AMB Questionnaire KAY-7 Date KAY - 7 assessed: 02/13/25 Source: Developed by Drs. Neel Muhammad, Alissa Ayoub, Gómez Sargent and colleagues, with an educational jorge from [employer]. Review of Systems Const Denies headache(s) Eyes Denies loss of vision ENT Denies vertigo, Reports dizziness (Significantly improved), Denies headache(s) and Denies sore throat Card Denies chest pain, Denies leg edema and Denies lightheadedness Resp Denies cough, Denies hemoptysis and Denies wheezing GI Denies abdominal pain, Denies melena, Reports constipation (on and off), Denies diarrhea and Denies vomiting Denies dysuria, Denies urinary frequency and Denies urinary urgency Musc Denies arthralgias, Denies joint swelling, Reports numbness (feet) and Reports tingling (BLE) Neuro Denies Abnormal speech present, Denies behavioral changes, Denies vertigo, Reports dizziness (Significantly improved), Denies headache(s), Denies loss of vision, Denies memory loss, Reports numbness (feet) and Reports tingling (BLE) Psych Denies anxiety, Denies behavioral changes, Denies depression, Denies memory loss, Denies panic attacks and Reports other (insomnia) Carl/Lymph Denies easy bleeding and Denies easy bruising Aller/Immun Denies wheezing Physical exam (Primary Care) Vital Signs: Last Vital Signs Temp 97.6 F 02/13/25 14:24 Pulse 86 02/13/25 14:24 BP 124/76 02/13/25 14:24 Pulse Ox 96 02/13/25 14:24 Oxygen Delivery Method Room Air 02/13/25 14:24 BMI result Body Mass Index 30.5 Tobacco/Smoking Status: Tobacco use Status Tobacco use date assessed 02/13/25 02/13/25 14:32 Patient Tobacco Use Status Former Tobacco user 02/13/25 14:32 Tobacco use type Cigarette 02/13/25 14:32 e-Cigarette/Vaping Use Never Used 02/13/25 14:32 Thrive Assessment: Date of Thrive Assessment Date Thrive assessed 02/13/25 02/13/25 14:32 Currently or been in a relationship where the following occur: No concerns reported Const General: healthy appearing, no acute distress, alert and awake Nutritional Appearance: well nourished Orientation/consciousness: oriented to person, oriented to place and oriented to time HENMT Ears: hearing grossly normal bilaterally General nose exam: Normal external nose present Eyes Conjunctivae: conjunctivae normal Sclerae: sclerae normal Pupils: Equal, round and reactive pupils present Neck Neck: Yes no lymphadenopathy and Yes no JVD Thyroid: Thyroid normal Carotids: no bruits Resp Effort & Inspection: normal respiratory effort and not tachypneic Auscultation: no crackles, no rales, no rhonchi and no wheezes Cardio Rate: regular rate Rhythm: regular rhythm Heart sounds: S1 normal heart sound present, S2 normal heart sound present, no murmurs and normal S1 and S2 GI Inspection: Yes obesity Palpation (GI): Soft to palpation and nontender Auscultation: normal bowel sounds General: Yes no CVA tenderness Back/Spine/Pelvis Back: no CVA tenderness Skin General skin exam: no rashes or lesions noted and dry skin Neuro General: oriented to person, oriented to place and oriented to time Cranial nerves: Yes Equal, round and reactive pupils present Speech: No Abnormal speech present Gait exam (Neuro): Assisted gait required (cane) Motor exam (neuro): no tremor noted Extrem Right upper extremity: full ROM Left upper extremity: full ROM Right lower extremity: full ROM; no edema Left lower extremity: full ROM; no edema Psych Mental Status: mental status grossly normal Speech and movement: Normal speech and movement present Affect: normal affect Attitude: cooperative Thought process: Normal thought process present Results Reviewed Results Reviewed: Laboratory Tests 12/18/24 01/29/25 07:14 08:46 WBC 8.0 RBC 5.67 Hgb 17.2 Hct 52.0 MCV 91.7 MCH 30.3 MCHC 33.1 RDW 13.4 Plt Count 171 MPV 11.4 Immature Gran % (Auto) 0.2 Sodium 143 Potassium 4.1 Chloride 107 Carbon Dioxide 28 Anion Gap 12 BUN 15 Creatinine 0.98 Estimated GFR > 60 Fasting Glucose 186 H Hemoglobin A1c % 8.0 H Calcium 9.0 Total Bilirubin 1.0 AST 22 ALT 24 Alkaline Phosphatase 101 Total Protein 6.8 Albumin 4.0 Triglycerides 136 Cholesterol 146 HDL Cholesterol 39 L TSH 0.74 Coding Level of Care Code Est Pt Level 4 (42560) Diagnoses Hypertension, unspecified type I10 Hypertension type: unspecified 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 I63.22 CVA mechanism: stenosis Precerebral and cerebral artery: basilar artery Restless leg syndrome G25.81 Dizziness R42 Carotid stenosis, bilateral I65.23 Neuropathy G62.9 Depression, unspecified depression type F32.A Depression Type: unspecified Constipation, unspecified constipation type K59.00 Constipation type: unspecified constipation type Elevated PSA R97.20 Time Spent (min) 42 Assessment & Plan Assessment & Plan (1) HTN (hypertension): Code(s): I10 - Essential (primary) hypertension Category: Medical Qualifiers: Hypertension type: unspecified Qualified Code(s): I10 - Essential (prim kirsten) hypertension Plan: Blood pressure 124/76 in office. We will pressure goal is systolic less than 130 mmHg Reinforced low-salt diet Continue metoprolol succinate ER 25 mg daily, isosorbide mononitrate ER 30 mg daily (2) CAD (coronary artery disease): Code(s): I25.10 - Atherosclerotic heart disease of crow coronary artery without angina pectoris Category: Medical Qualifiers: Coronary Disease-Associated Artery/Lesion type: unspecified vessel or lesion type [place] vs. transplanted heart: crow heart Associated angina: with stable angina Qualified Code(s): I25.118 - Atherosclerotic heart disease of crow coronary artery with other forms of angina pectoris Plan: Cardiac catheterization 09/15/2023 showed left main normal lad mild diffuse disease, D1 moderate diffuse disease distally, left circumflex mid 70% stenosis, ENRRIQUE placed, distal circumflex 75% stenosis, ENRRIQUE placed, RCA mild diffuse disease, right PDA moderate diffuse disease. continue aspirin 81 mg and atorvastatin 80 mg, and Plavix 75 mg daily Intermittent mild chest pain prior resolved per patient, however, it did not seem to be angina in nature though he has nitrogen tablets as needed (3) Stented coronary artery: Code(s): Z95.5 - Presence of coronary angioplasty implant and graft Category: Surgical Plan: Cardiac catheterization 09/15/2023 showed left main normal lad mild diffuse disease, D1 moderate diffuse disease distally, left circumflex mid 70% stenosis, ENRRIQUE placed, distal circumflex 75% stenosis, ENRRIQUE placed, RCA mild diffuse disease, right PDA moderate diffuse disease. Clopidogrel 75 mg daily and aspirin [address] (4) Hyperlipemia: Code(s): E78.5 - Hyperlipidemia, unspecified Category: Medical Qualifiers: Hyperlipidemia type: unspecified Qualified Code(s): E78.5 - Hyperlipidemia, unspecified Plan: Cable LDL goal less than 70. . Total cholesterol 146, LDL 80 and HDL 39. Reinforced low-cholesterol diet and activity as tolerated. Continue atorvastatin 80 mg daily. Encouraged [place] 3 supplement (5) Diabetes mellitus: Code(s): E11.9 - Type 2 diabetes mellitus without complications Category: Medical Qualifiers: Diabetes mellitus type: type 2 Diabetes mellitus termination clerk insulin use: with termination clerk use Diabetes mellitus complication status: with hyperglycemia Qualified Code(s): E11.65 - Type 2 diabetes mellitus with hyperglycemia; Z79.4 - joint terminal attack controller (current) use of insulin Plan: Hemoglobin A1c goal less than 7. A1c 8%. Per daughter reporting the patient last A1c prior to this was 7.3%. The patient is currently on Trulicity 4.5 mg subQ and NovoLog per sliding scale and insulin glargine-yfgn 25 units s.c BID. Will refer the patient to endocrine to be evaluated. (6) Insulin long-term use: Code(s): Z79.4 - joint terminal attack controller (current) use of insulin Category: Medical Plan: Basal and prandial insulin in place (7) CVA (cerebral vascular accident): Comment: Notes obtained from [facility], reviewed. Notes indicate history of bilateral carotid endarterectomy with subsequent left ICA occlusion 2014 with CVA and residual right-sided weakness. Last carotid ultrasound 09/25/2023 showed right ICA 16-49% stenosis, occluded left ICA. Cardiac catheterization 09/15/2023 showed left main normal lad mild diffuse disease, D1 moderate diffuse disease distally, left circumflex mid 70% stenosis, ENRRIQUE placed, distal circumflex 75% stenosis, ENRRIQUE placed, RCA mild diffuse disease, right PDA moderate diffuse disease. Code(s): I63.9 - Cerebral infarction, unspecified Category: Medical Qualifiers: CVA mechanism: stenosis Precerebral and cerebral artery: basilar artery Qualified Code(s): I63.22 - Cerebral infarction due to unspecified occlusion or stenosis of basilar artery Plan: Status post CVA with mild right-sided weakness residual. Continue atorvastatin 80 mg daily, aspirin 81 mg daily, and clopidogrel 75 mg daily (8) Restless leg syndrome: Code(s): G25.81 - Restless legs syndrome Category: Medical Plan: Continue ropinirole 2 mg b.i.d. (9) Dizziness: Code(s): R42 - Dizziness and giddiness Category: Medical Plan: Patient has a history of orthostatic hypotension. Encouraged the patient to rise slowly and maintain adequate fluid hydration. (10) Carotid stenosis, bilateral: Comment: [place] Code(s): I65.23 - Occlusion and stenosis of bilateral carotid arteries Category: Medical Plan: bilateral carotid endarterectomy with subsequent left ICA occlusion 2014 with CVA and residual right-sided weakness. Last carotid ultrasound 09/25/2023 showed right ICA 16-49% stenosis, occluded left ICA. Cardiac catheterization 09/15/2023 showed left main normal lad mild diffuse disease, D1 moderate diffuse disease distally, left circumflex mid 70% stenosis, ENRRIQUE placed, distal circumflex 75% stenosis, ENRRIQUE placed, RCA mild diffuse disease, right PDA moderate diffuse disease. (11) Neuropathy: Code(s): G62.9 - Polyneuropathy, unspecified Category: Medical Plan: Continue pregabalin 200 mg b.i.d. May use compression stockings to improve circulation (12) Depression: Code(s): F32.A - Depression, unspecified Category: Medical Qualifiers: Depression Type: unspecified Qualified Code(s): F32.A - Depression, unspecified Plan: Encouraged CBT Continue amitriptyline 25 mg at bedtime (13) Constipation: Code(s): K59.00 - Constipation, unspecified Category: Medical Qualifiers: Constipation type: unspecified constipation type Qualified Code(s): K59.00 - Constipation, unspecified Plan: Ongoing, continue miralax 17g daily and increasing fluids intake. The patient reports that he is not a big fan of water. (14) Elevated PSA: Code(s): R97.20 - Elevated prostate specific antigen [PSA] Category: Medical Plan: He was being monitored by Urology in [place]. His last visit was 08/16/2024 and PSA was 9.4; per patient, they has been monitoring him for prostate cancer due to his family history. Will refer the patient to urology. Plan The management plan for diabetes mellitus includes continuing insulin therapy with glargine, addressing any insurance-related issues to ensure consistent medication availability. The patient is advised to monitor blood glucose levels regularly and maintain dietary modifications to manage blood sugar levels effectively. For hypertension, the patient is to continue metoprolol, with close monitoring of blood pressure readings due to recent low measurements. Adjustments to medication may be considered if low blood pressure persists. Hyperlipidemia management includes the recommendation of omega-3 supplements to improve HDL cholesterol levels. The patient is encouraged to maintain a heart- healthy diet and engage in regular physical activity as tolerated. The patient is scheduled for an echocardiogram and stress test to evaluate cardiovascular health further. Follow-up with cardiology will be necessary based on the results of these tests. For constipation, the patient is advised to continue using MiraLAX and increase fluid intake to manage symptoms effectively. Patient was informed and verbally consented to the use of an ambient scribe for clinic note documentation during this visit. Orders: Orders Comprehensive [place]. Panel Fast 3 Months E11.65 - Type 2 diabetes mellitus with hyperglycemia, E78.5 - Hyperlipidemia, unspecified, F32.A - Depression, unspecified, I10 - Essential (primary) hypertension, I25.118 - Atherosclerotic heart disease of crow coronary artery with other forms of angina pectoris, I63.9 - Cerebral infarction, unspecified, I95.2 - Hypotension due to drugs, Z79.4 - joint terminal attack controller (current) use of insulin, Z95.5 - Presence of coronary angioplasty implant and graft Hemoglobin A1c 3 Months E11.65 - Type 2 diabetes mellitus with hyperglycemia, E78.5 - Hyperlipidemia, unspecified, F32.A - Depression, unspecified, I10 - Essential (primary) hypertension, I25.118 - Atherosclerotic heart disease of crow coronary artery with other forms of angina pectoris, I63.9 - Cerebral infarction, unspecified, I95.2 - Hypotension due to drugs, Z79.4 - snf (current) use of insulin, Z95.5 - Presence of coronary angioplasty implant and graft Complete Blood Count Auto Diff 3 Months E11.65 - Type 2 diabetes mellitus with hyperglycemia, E78.5 - Hyperlipidemia, unspecified, F32.A - Depression, unspecified, I10 - Essential (primary) hypertension, I25.118 - Atherosclerotic heart disease of crow coronary artery with other forms of angina pectoris, I63.9 - Cerebral infarction, unspecified, I95.2 - Hypotension due to drugs, Z79.4 - joint terminal attack controller (current) use of insulin, Z95.5 - Presence of coronary angioplasty implant and graft Lipid Panel 3 Months E11.65 - Type 2 diabetes mellitus with hyperglycemia, E78.5 - Hyperlipidemia, unspecified, F32.A - Depression, unspecified, I10 - Essential (primary) hypertension, I25.118 - Atherosclerotic heart disease of crow coronary artery with other forms of angina pectoris, I63.9 - Cerebral infarction, unspecified, I95.2 - Hypotension due to drugs, Z79.4 - snf (current) use of insulin, Z95.5 - Presence of coronary angioplasty implant and graft UA CC w/rflx Micro + Cult 3 Months E11.65 - Type 2 diabetes mellitus with hyperglycemia, E78.5 - Hyperlipidemia, unspecified, F32.A - Depression, unspecified, I10 - Essential (primary) hypertension, I25.118 - Atherosclerotic heart disease of crow coronary artery with other forms of angina pectoris, I63.9 - Cerebral infarction, unspecified, I95.2 - Hypotension due to drugs, Z79.4 - joint terminal attack controller (current) use of insulin, Z95.5 - Presence of coronary angioplasty implant and graft TSH reflex Free T4 3 Months E11.65 - Type 2 diabetes mellitus with hyperglycemia, E78.5 - Hyperlipidemia, unspecified, F32.A - Depression, unspecified, I10 - Essential (primary) hypertension, I25.118 - Atherosclerotic heart disease of crow coronary artery with other forms of angina pectoris, I63.9 - Cerebral infarction, unspecified, I95.2 - Hypotension due to drugs, Z79.4 - joint terminal attack controller (current) use of insulin, Z95.5 - Presence of coronary angiop lasty implant and graft Referrals Endocrinology Referral E11.65 - Type 2 diabetes mellitus with hyperglycemia, Z79.4 - snf (current) use of insulin Urology Referral R97.20 - Elevated prostate specific antigen [PSA] Medications: New blood sugar diagnostic (OneTouch Verio test strips) As directed check blood sugar three times day 100 ea 3RF E11.65 - Type 2 diabetes mellitus with hyperglycemia, Z79.4 - snf (current) use of insulin blood-glucose meter (OneTouch Verio Reflect Meter) As directed Check blood sugar tid 1 ea 0RF E11.65 - Type 2 diabetes mellitus with hyperglycemia, Z79.4 - joint terminal attack controller (current) use of insulin lancets As directed check blood sugar three times a day 100 ea 0RF E11.65 - Type 2 diabetes mellitus with hyperglycemia, Z79.4 - snf (current) use of insulin Resumed insulin glargine-yfgn (Semglee (insulin glargine-yfgn) Pen) 25 units (0.25 mL) subcut BID 15 mL 3RF
[2025-02-13 14:24] VITALS: BP 124/76; PULSE 86; TEMP 36.4; O2SAT 96; BMI 30.5
--- OUTSIDE RECORDS SUMMARY | 2025-02-13 14:26 | XMS_ITS | Clinical Summary ---
Author Organization [address] [facility] Address [address] [place] [address] Phone Care Team Providers Care Field Technical Assistant Name Role Phone Paco Christy SAMUEL Primary Care Provider Social History Tobacco Use Types Packs/Day Years Used Date Smoking Tobacco: Never Assessed Sex and Gender Information Value Date Recorded Sex Assigned at Not on file Legal Sex Male 8:22 AM EDT Gender Identity Not on file Sexual Orientation Not on file Plan of Treatment Upcoming Encounters Date Type Department Care Team ([facility] Contact Info) Description 04/15/2025 10:15 AM EDT Office Visit Orthopedic Surgery [facility] [address] [phone] Abhishek Quiros, DPM [address] [id number] Health Maintenance Due Date Last Done Comments Diabetes: Annual GFR (Glomer ular Filtration Rate) 1954 Diabetes: Annual Foot Exam 1964 Diabetes: Annual Retina Eye Exam 1964 DTaP,Tdap,and Td Vaccines (1 - Tdap) 1973 Pneumococcal Vaccine: 50+ Ye ars (1 of 2 - PCV) 1973 Zoster Vaccines (1 of 2) 2004 COVID-19 Vaccine ( - 2023-2 5 season) 2024 Depression Screening 07/24/2024 Abdominal Aortic Aneurysm (A AA) Screen 01/02/2025 Cholesterol Screening (Lipid Panel) 01/02/2025 Colorectal Cancer Screening: Colonoscopy 01/02/2025 Diabetes: Annual Urine Albumin-Creatinine Ratio (uACR) 01/02/2025 Diabetes: Blood Sugar Contro l Test (HGBA1C) 01/02/2025 Falls Risk Assessment 01/02/2025 Hepatitis C Screening 01/02/2025 Medicare Annual Wellness Visit 01/02/2025 Social Influencers of Health Screening 01/02/2025 Influenza Vaccine (#1) 2025 RSV Immunization Adult Patie nts (1 [...] Insurance MEDICARE MEDICAID - [place] Care Teams Field Technical Assistant Relationship Specialty Start Date End Date Paco Christy FNP [facility] [address] [place] [id number] PCP - General Family Medicine 01/02/25
--- OUTSIDE RECORDS SUMMARY | 2025-02-13 14:27 | XMS_ITS | Patient Health Record ---
Author Organization [facility] Address [address] [place] [id number] Care Team Providers Care Home Care Music Therapist Name Role Phone MaysNeel Unavailable [phone] Reason For Referral No Information Plan Of Treatment No Information
== END 2025-02-13 15:17 | disposition home or self-care (01) ==
LOC: HO.HMCH 14:20
DX: E11.65 Type 2 diabetes mellitus with hyperglycemia (principal); Z79.4 Long term (current) use of insulin; I63.22 Cerebral infarction due to unspecified occlusion or stenosis of basilar artery; I10 Essential (primary) hypertension; I25.118 Atherosclerotic heart disease of native coronary artery with other forms of angina pectoris; Z95.5 Presence of coronary angioplasty implant and graft; E78.5 Hyperlipidemia, unspecified; G25.81 Restless legs syndrome; R42 Dizziness and giddiness; I65.23 Occlusion and stenosis of bilateral carotid arteries; G62.9 Polyneuropathy, unspecified; F32.A Depression, unspecified

== ENCOUNTER → 2025-02-13 14:19 | Outpatient (BNVA) | payer MEDICARE, MEDICAID, SELFPAY | DX: I10 Essential (primary) hypertension (principal); I25.118 Atherosclerotic heart disease of native coronary artery with other forms of angina pectoris; Z95.5 Presence of coronary angioplasty implant and graft; E78.5 Hyperlipidemia, unspecified; E11.65 Type 2 diabetes mellitus with hyperglycemia; Z79.4 Long term (current) use of insulin; G25.81 Restless legs syndrome; R42 Dizziness and giddiness; G62.9 Polyneuropathy, unspecified; F32.A Depression, unspecified; K59.00 Constipation, unspecified; R97.20 Elevated prostate specific antigen [PSA]; Z86.73 Personal history of transient ischemic attack (TIA), and cerebral infarction without residual deficits | CPT/HCPCS: 99212 ==

== ENCOUNTER 2025-02-17 13:00 | Outpatient (REF) | payer MEDICARE, MEDICAID, SELFPAY ==
--- NOTE | ~2025-02-17 | US_ITS ---
EXAMINATION: US EXTRACRANIAL CAROTID DUPLEX, BILATERAL CLINICAL INFORMATION: Occlusion and stenosis bilateral carotid arteries. Status post endarterectomies. COMPARISON: None available. TECHNIQUE: Real-time ultrasound and Doppler techniques (integrating B-mode 2-D vascular images, Doppler spectral analysis and color-flow Doppler imaging) were utilized to interrogate the extracranial carotid arteries, the vertebral arteries and proximal subclavian arteries bilaterally. The degree of stenosis is determined by criteria similar to NASCET. FINDINGS: Right Side: 1. There is mixed atherosclerotic plaque seen in the bifurcation/proximal ICA region. 2. The common carotid artery PSV proximally is 145 cm/s and distally 88 cm/s. 3. The proximal internal carotid artery velocities are 72 cm/s systolic and 27 cm/s diastolic. 4. The proximal external carotid artery PSV is 183 cm/s. 5. The vertebral artery shows antegrade flow. 6. The subclavian artery waveforms are triphasic.. ICA/CC ratio: 0.5. Left Side: 1. There is mixed atherosclerotic plaque seen in the bifurcation/proximal ICA region. 2. The common carotid artery PSV proximally is 55 cm/s and distally 37 cm/s. 3. The proximal internal carotid artery velocities demonstrates no flow on color Doppler interrogation. 4. The proximal external carotid artery PSV demonstrates no flow on color Doppler interrogation. 5. The vertebral artery shows antegrade flow. 6. The subclavian artery waveforms are triphasic.. US/US carotid duplex BI IMPRESSION: 1. RIGHT: 0-49% stenosis by ultrasound criteria. 2. LEFT: No color Doppler flow, left ICA nor left external carotid artery. Consider occlusion. Electronically signed by: Christiano Jimenez MD 02/17/2025 02:36 PM EDT
--- OUTSIDE RECORDS SUMMARY | 2025-02-17 13:38 | XMS_ITS | Clinical Summary ---
Author Organization 175 [facility] Address [address] [place] [address] Phone Care Team Providers Care T Rail Turner Name Role Phone Paco Christy SAMUEL Primary Care Provider Social History Tobacco Use Types Packs/Day Years Used Date Smoking Tobacco: Never Assessed Sex and Gender Information Value Date Recorded Sex Assigned at Not on file Legal Sex Male 8:22 AM EDT Gender Identity Not on file Sexual Orientation Not on file Plan of Treatment Upcoming Encounters Date Type Department Care Team ([facility] Contact Info) Description 04/15/2025 10:15 AM EDT Office Visit Orthopedic Surgery [facility] [address] [phone] Abhishek Quiros, DPM [address] [address] Health Maintenance Due Date Last Done Comments [...] Insurance MEDICARE [place] - [place] Care Teams T Rail Turner Relationship Specialty Start Date End Date Paco Christy FNP 2 [facility] [address] [place] [id number] PCP - General Family Medicine 01/02/25
--- OUTSIDE RECORDS SUMMARY | 2025-02-17 13:39 | XMS_ITS | Patient Health Record ---
Author Organization [facility] Address [address] [place] [id number] Care Team Providers Care Correctional Therapy Director Name Role Phone MaysNeel Unavailable [phone] Reason For Referral No Information Plan Of Treatment No Information
--- NOTE | 2025-02-17 13:43 | CA_ITS ---
Transthoracic Echocardiogram Patient (Last, First, Middle): Meme Vasquez A Gender: Male Date of : 1955 Age: 69 Procedure Date: 02/17/2025 Procedure Type: Transthoracic Echocardiogram Location: OP Height: 170.18 cm Weight: 88. kg BSA: 2.00 m2 Heart Rate: bpm BP: 124 / 76 mmHg Industrial Sales Representative: TAE Referring MD: Mague Youngblood HE[employer] Employee: Keny Handley MD Symptoms: I25.10 - Atherosclerotic heart disease of [place] coronary artery without... Study Quality: Adequate ECG Rhythm: Sinus Conclusions: - 1. Normal LV ejection fraction of 60 65% with mild LVH with moderate asymmetric septal hypertrophy with impaired relaxation filling pattern 2. Moderate aortic stenosis 3. Normal RV systolic pressure 4. No gross pericardial effusion Findings Left Ventricle Normal left ventricular size, thickness, and systolic function. The visually estimated ejection fraction is between 60-65%. Spectral Doppler is indicative of an impaired relaxation filling pattern. E/E prime ratio is between 8 and 15 consistent with indeterminate filling pressures. There is moderate septal asymmetric hypertrophy. Wall Motion Rest Echo Findings The basal inferolateral segment is hypokinetic. All other scored wall segments showed normal motion. Right Ventricle Normal right ventricular cavity size and systolic function. Atria The left atrium is mildly dilated. There is no evidence of interatrial shunt. The right atrium is normal in size. Aortic Valve There is moderate calcification of the aortic valve. There is moderate thickening of the aortic valve. There is moderate aortic valve stenosis. There is no aortic valve regurgitation. Mitral Valve The mitral valve was not well visualized. There is mild mitral annular calcification. There is trace mitral valve regurgitation. There is no mitral valve stenosis. Pulmonic Valve The pulmonic valve was not well visualized. Tricuspid Valve Likely normal tricuspid valve structure and function. There is mild tricuspid valve regurgitation. The right ventricular systolic pressure is normal. The right ventricular systolic pressure is 28 mmHg. Normal right atrial pressure. There is no evidence of pulmonary hypertension. Great Vessels The pulmonary artery was not well visualized. There is no dilatation of the ascending aorta measuring 3.20 cm. Small plaque is seen in the sino tubular ridge. Venous The inferior vena cava is normal in size and collapses greater than 50% with inspiration. Pericardium/Pleural There is no evidence of pericardial effusion. Prior Study Comparison no previous study in the last 5 years for comparison Measurements 2D Linear Measurements IVSd: 1.64 0.6-0.9/0.6-1.0 cm LVIDd: 4.26 3.9-5.3/4.2-5.9 cm LVIDd Index: 2.13 2.4-3.2/2.2-3.1 cm/m2 LVIDs: 3.14 2.0-3.6 cm LVPWd: 1.23 0.7-1.1 cm LA Diam: 4.40 2.7-3.8/3.0-4.0 cm LAIDs Index: 2.20 1.5-2.3 cm/m2 LV Mass: 296.56 67-162/88-224 g LV Mass Index: 148.28 43-95/49-115 g/m2 LVOT Diam: 2.10 3.0+(-)1.3 cm 2D Systolic Function EF 4C: 66.00 >55% EF 2C: 57.10 >55% EF BiP: 62.70 >55% Mitral Valve MV Pk E: 0.61 MV PK A: 0.79 MV Decel Time: 256.00 E/A: 0.80 E'Lateral: 5.22 E'Medial: 4.79 E/E' Med: 12.80 E/E' Lat: 11.70 PHT: 75.00 MVA PHT: 2.93 Decel [place]: 2.39 Aortic Valve AoV Pk Deniz: 2.69 AoV Mn Deniz: 1.89 AoV VTI: 0.56 AoV Pk Grad: 29.00 Aov Mn Grad: 16.00 PIA Cont.VTI: 1.41 LVOT LVOT Pk Deniz: 1.09 LVOT Mn Deniz: 0.72 LVOT VTI: 0.23 LVOT Pk Grad: 5.00 LVOT Mn Grad: 2.00 LVOT Diam: 2.10 LVOT Area: 3.46 Diastolic Function MV Pk E: 0.61 MV Pk A: 0.79 E/A: 0.80 E'Medial: 4.79 E/E' Med: 12.80 E' Laterial: 5.22 E/E' Lat: 11.70 Right Ventricle TAPSE (mm): 18.90 TVS' Deniz: 10.40 Tricuspid Valve TR Pk Deniz: 2.25 TR Pk Grad: 20.00 RA Press: 8.00 RVSP: 28.00 Great Vessels Aorta Sinus of Valsalva: 3.52 2.0-3.[address] [place]: 2.40 1.7-3.4 cm Ao Asc: 3.20 2.1-3.4 cm Updated in Other Vendor System with Status of Final Keny Handley MD electronically signed on 02/17/2025 3:44:27 PM with status of Final
== END 2025-02-17 13:01 | disposition home or self-care (01) ==
LOC: HO.US 13:00
PROVIDERS: Visit Provider Nurse Practitioner Family
DX: I65.23 Occlusion and stenosis of bilateral carotid arteries (principal); I25.10 Atherosclerotic heart disease of native coronary artery without angina pectoris; R07.2 Precordial pain
CPT/HCPCS: 93306; 93880

== ENCOUNTER → 2025-02-17 13:02 | Outpatient (BNV) | payer MEDICARE, MEDICAID, SELFPAY | PROVIDERS: Visit Provider Radiology Diagnostic Radiology | DX: I65.23 Occlusion and stenosis of bilateral carotid arteries (principal) | CPT/HCPCS: 93880 ==

== ENCOUNTER → 2025-02-17 13:43 | Outpatient (BNV) | payer MEDICARE, MEDICAID, SELFPAY | PROVIDERS: Visit Provider Internal Medicine Cardiovascular Disease | DX: I42.2 Other hypertrophic cardiomyopathy (principal); I35.0 Nonrheumatic aortic (valve) stenosis | CPT/HCPCS: 93306 ==

== ENCOUNTER → 2025-03-04 09:10 | Outpatient (REF) | payer MEDICARE, MEDICAID, SELFPAY ==
--- NOTE | ~2025-03-04 | NM_ITS ---
Lexiscan Myocardial perfusion study Indication: Abnormal EKG Technique: The patient was brought in for a Lexiscan perfusion study on 03/04/2025 and was injected 0.4 mg of Lexiscan intravenously. Within a minute of this injection 30 mCi of sestamibi was given intravenously. Images were obtained using the SPECT gamma camera interlaced with the gating device. Images were obtained in supine position. Resting perfusion study was performed on 03/05/2025. Patient was administered 30 mCi of sestamibi intravenously at rest. Images were then obtained in supine position. Total DLP 93 mGy-cm. Images were processed with the software and compared side to side in short axis, horizontal long axis and vertical long axis views. Findings: Raw aquisition reviewed. The stress perfusion study showed decreased tracer uptake along the inferior wall. There is improvement with CT attenuation correction suggestive of diaphragmatic attenuation artifact. The gated study shows normal LV systolic function with calculated LVEF of 54%. LV cavity is normal in size. The gated study shows normal wall thickening and contraction of segments. Resting study shows diminished tracer uptake along the inferior wall. There is improvement with CT attenuation correction suggestive of diaphragmatic attenuation artifact. Gating at rest reveals normal wall motion with ejection fraction at 45%, but visually higher. The findings are consistent with fixed inferior perfusion defect. Probably from diaphragmatic attenuation artifact. No clear reversible defects. NM/NM cardiolite stress test Impression: 1. Myocardial perfusion imaging study shows fixed inferior perfusion defect, probably from diaphragmatic attenuation artifact. No clear reversible defects. 2. Gated LVEF is 51% during stress; 45% during rest- but visually appeared higher. Correlate with echocardiogram.. 3. Transient ischemic dilatation not present. EKG component of the test reported separately. Electronically signed by: Sean Munoz MD 03/06/2025 03:26 PM EDT
--- NOTE | 2025-03-04 09:14 | CA_ITS ---
Acquisition Time: 2025-03-04 09:24:35 Total Exercise Time: 00:02:00 Test Indications: ABN EKG Medications: SEE H&P Protocol: LEXISCAN Max HR: 98 BPM 65% of Pred: 150 BPM Max BP: 122/72 mmHG Max Work Load: 1.0 METS Pharmacological stress test with Lexiscan, with reports of SOB and dizziness, without any arrythmias, with normotensive response to injection. Nondiagnostic EKG for ischemia. In recovery, pt treated with IVP Aminophylline 75 mg to reverse Lexiscan after which pt feeling back to baseline. Nuclear images pending. Test reviewed with Dr. Addison. Referred By: Mague Youngblood Electronically Signed By: Boy Guerrero
--- OUTSIDE RECORDS SUMMARY | 2025-03-04 09:43 | XMS_ITS | Clinical Summary ---
Author Organization 175 [facility] Address [address] [place] [address] Phone Care Team Providers Care Turbine Attendant Name Role Phone Paco Christy SAMUEL Primary Care Provider Social History Tobacco Use Types Packs/Day Years Used Date Smoking Tobacco: Never Assessed Sex and Gender Information Value Date Recorded Sex Assigned at Not on file Legal Sex Male 8:22 AM EDT Gender Identity Not on file Sexual Orientation Not on file Plan of Treatment Upcoming Encounters Date Type Department Care Team ([facility] Contact Info) Description 04/15/2025 10:15 AM EDT Office Visit Orthopedic Surgery [facility] [address] [phone] Abhishek Quiros, DPM [address] [address] Health Maintenance Due Date Last Done Comments [...] Insurance MEDICARE [place] - [place] Care Teams Turbine Attendant Relationship Specialty Start Date End Date Paco Christy FNP 2 [facility] [address] [place] [id number] PCP - General Family Medicine 01/02/25
--- OUTSIDE RECORDS SUMMARY | 2025-03-04 09:44 | XMS_ITS | Patient Health Record ---
Author Organization [facility] Address [address] [place] [phone] Care Team Providers Care Parking Cashier Name Role Phone MaysNeel Unavailable [phone] Reason For Referral No Information Plan Of Treatment No Information
== END ==
LOC: HO.CARD 09:10
PROVIDERS: Visit Provider Nurse Practitioner Family
DX: R07.2 Precordial pain (principal); I25.10 Atherosclerotic heart disease of native coronary artery without angina pectoris; Z95.5 Presence of coronary angioplasty implant and graft
CPT/HCPCS: 78452; 93017; A9500; J0280; J2785

== ENCOUNTER → 2025-03-04 09:14 | Outpatient (BNV) | payer MEDICARE, MEDICAID, SELFPAY | DX: R94.31 Abnormal electrocardiogram [ECG] [EKG] (principal) | CPT/HCPCS: 78452; 93016; 93018 ==

== ENCOUNTER 2025-03-14 13:27 | Outpatient (AMB) | payer MEDICARE, MEDICAID, SELFPAY ==
--- OUTSIDE RECORDS SUMMARY | 2025-03-14 13:31 | XMS_ITS | Patient Health Record ---
Author Organization [facility] Address [address] [place] [address] Care Team Providers Care Rn Infusion Name Role Phone MaysNeel Unavailable [phone] Reason For Referral No Information Plan Of Treatment No Information
--- OUTSIDE RECORDS SUMMARY | 2025-03-14 13:31 | XMS_ITS | Clinical Summary ---
Author Organization 175 [facility] Address [address] [place] [address] Phone Care Team Providers Care Inside Plant Supervisor Name Role Phone Paco Christy SAMUEL Primary Care Provider Social History Tobacco Use Types Packs/Day Years Used Date Smoking Tobacco: Never Assessed Sex and Gender Information Value Date Recorded Sex Assigned at Not on file Legal Sex Male 8:22 AM EDT Gender Identity Not on file Sexual Orientation Not on file Plan of Treatment Upcoming Encounters Date Type Department Care Team ([facility] Contact Info) Description 04/15/2025 10:15 AM EDT Office Visit Orthopedic Surgery [facility] [address] [phone] Abhishek Quiros, DPM [address] [address] Health Maintenance Due Date Last Done Comments [...] Insurance MEDICARE [place] - [place] Care Teams Inside Plant Supervisor Relationship Specialty Start Date End Date Paco Christy FNP 2 [facility] [address] [place] [id number] PCP - General Family Medicine 01/02/25
[2025-03-14 13:34] VITALS: BP 120/80; PULSE 85; BMI 30.6
--- NOTE | 2025-03-14 13:34 | MHC.OFFVIS ---
Vital Signs 03/14/25 13:34 Height 5 ft 7 in Weight 195 lb 5.273 oz BMI 30.6 BP 120/80 Blood Pressure Location Rt brachial Position Sitting Pulse 85 Pulse Source Pulse Oximeter Intake Visit Reasons: 6-8 wks f/up-testing Mobile Architect Required: No Loss Prevention Officer: Loss Prevention Officer Present Allergies hazelnuts Allergy (Severe, Uncoded 03/14/25 13:38) swelling, hives Medication List - Last Reconciled 03/14/25 by WAYLON Goel amitriptyline 10 mg PO BEDTIME aspirin 81 mg PO DAILY atorvastatin 80 mg PO BEDTIME blood sugar diagnostic ([employer] Verio test strips) As directed check blood sugar three times day blood-glucose meter ([employer] Verio Reflect Meter) As directed Check blood sugar tid clopidogrel 75 mg PO DAILY dulaglutide (Trulicity) 4.5 mg (0.5 mL) subcut LARA famotidine 20 mg PO BID insulin aspart U-100 (Novolog U-100 Insulin aspart) 1 sliding scale dose subcut USEASDIRECTD insulin glargine-yfgn (Semglee (insulin glargine-yfgn) Pen) 25 units (0.25 mL) subcut BID isosorbide mononitrate ER 30 mg PO DAILY lancets As directed check blood sugar three times a day metoprolol succinate ER 25 mg PO DAILY nitroglycerin 0.3 mg sublingual Q5M PRN pregabalin 200 mg PO BID ropinirole 2 mg PO BID HPI HPI 6-8 wks f/up-testing: Details: Meme is a 70-year-old male with past medical history of hypertension, diabetes, obesity, CAD, coronary stents ( OM1, mid and distal LCx), moderate aortic stenosis, bilateral carotid endarterectomies with known Left ICA occlusion who recently transferred care from [place] over to our practice. On last visit he reported atypical chest discomfort and shortness of breath on exertion and an echocardiogram and nuclear stress test were ordered. I also updated his carotid ultrasound. He now presents for follow-up. Today he reports he has been doing well since his last visit. He has had a reduction in his antihypertensives due to issues with lightheadedness. He admits to being mostly sedentary due to low back issues. He has some shortness of breath with exertion which is not new. No PND, orthopnea or leg edema. No chest discomfort brought on by exertion. He does get random pains in his chest periodically. No presyncope, syncope. He does have unsteadiness due to reported neuropathy in his legs and uses a cane. He is describing cramping in his calves, left greater than right with walking distances. Compliant with all meds. His daughter is assisting with his care and doctor's appointments. She is currently pleased with how he is doing. He drinks alcohol occasionally. He has oxygen at home that he wears PRN. He is a prior smoker, quit August 2021. [facility] Medical History Depression Restless leg syndrome Neuropathy Diabetes mellitus CVA (cerebral vascular accident) Type 2 diabetes mellitus HTN (hypertension) Surgical History History of carpal tunnel surgery History of surgery Family History Father No problems noted. Mother Heart disease Social History Household Members: Other Household Members Other:: daughter Housing: House Do you presently have visiting nurse or other home services: No Alcohol intake: current Alcohol intake frequency: holidays/special occasions only Alcohol type: beer Patient Tobacco Use Status: Former Tobacco user Tobacco use type: Cigarette e-Cigarette/Vaping Use: Never Used Second Hand Smoke Exposure: No service: No Current occupational status: retired and disabled Cognitive needs: Yes Hearing needs: No Vision needs: Yes Review of Systems Const All systems reviewed & are unremarkable except as noted in HPI and below ENT Denies dizziness Card Denies chest pain, Denies chest pain at rest, Denies chest pain with activity, Denies rapid heart rate, Denies pedal edema, Denies edema, Denies leg edema, Denies lightheadedness, Denies palpitations, Denies dyspnea, Denies dyspnea on exertion and Denies orthopnea Resp Denies cough, Denies dyspnea and Denies dyspnea on exertion GI Denies hematochezia and Denies change in stool character Musc Details: Calf cramping with walking - also bilateral lower leg burning and feet numbness consistent with neuropathy Reports abnormal gait (gets fatigued), Reports limited range of motion, Reports muscle cramps, Denies muscle weakness, Denies numbness, Denies radiating pain into limb, Denies stiffness and Denies tingling Neuro Reports abnormal gait (gets fatigued), Denies dizziness, Denies numbness and Denies tingling Endo Denies palpitations Physical Exam Vital Signs: Last Vital Signs Pulse 85 03/14/25 13:34 BP 120/80 03/14/25 13:34 BMI result Body Mass Index 30.6 Const General: cooperative, healthy appearing, comfortable and no acute distress Orientation/consciousness: patient oriented x3 Neck Other: bilateral scars from carotid endarterectomies - no bruit noted Neck: Yes normal visual inspection and Yes no JVD Resp Effort & Inspection: normal respiratory effort Auscultation: clear to auscultation bilaterally, no rales, no rhonchi and no wheezes Cardio Other: heart tones distant and difficult to determine if murmur is present. Rate: regular rate Rhythm: regular rhythm Heart sounds: S1 normal heart sound present and S2 normal heart sound present Neuro General: patient oriented x3 Extrem General: Yes normal to inspection and No no pedal edema Psych Appearance: grossly normal Mental Status: mental status grossly normal Speech and movement: Normal speech and movement present Assessment & Plan Assessment & Plan (1) CAD (coronary artery disease): Code(s): I25.10 - Atherosclerotic heart disease of [place] coronary artery without angina pectoris Category: Medical Qualifiers: Associated angina: with stable angina Coronary Disease-Associated Artery/Lesion type: unspecified vessel or lesion type [place] vs. transplanted heart: [place] heart Qualified Code(s): I25.118 - Atherosclerotic heart disease of [place] coronary artery with other forms of angina pectoris Plan: History of CAD with NSTEMI 06/25/2019, ENRRIQUE placed to OM1 at that time. Cardiac catheterization 09/15/2023 in [place] with three-vessel CAD, stents placed to the distal and mid circumflex. EKG done 12/17/2024 shows normal sinus rhythm with ST and T-wave abnormalities in the inferior lateral leads suggestive of possible ischemia, rate 79. Pharmacological nuclear stress test done 03/04/2025 shows a fixed inferior defect, likely diaphragm attenuation, no ischemia. Echocardiogram 02/17/2025 showed EF 60-65%, mild LVH, moderate asymmetric septal hypertrophy, moderate aortic stenosis. Results reviewed with him in detail. He reports shortness of breath with activity which is likely related to deconditioning. It has been over 1 year since his last coronary stent. Will have him stop Plavix. Continue aspirin indefinitely. Continue high-dose atorvastatin and will add Zetia. Continue isosorbide and metoprolol XL. Signs and symptoms of angina reviewed with him. Cardiology follow-up 6 months, sooner if needed. (2) Carotid stenosis, bilateral: Comment: Bilateral carotid endarterectomies in [place] Code(s): I65.23 - Occlusion and stenosis of bilateral carotid arteries Category: Medical Plan: History of bilateral carotid endarterectomies, in [place]. Right carotid endarterectomy 04/21/2017. Left carotid endarterectomy 09/17/2014. Per daughter he has known chronic occlusion of the left carotid. Carotid ultrasound done 02/18/2025 shows left ICA no flow, probable occlusion, right ICA 0-49% stenosis. Continue aspirin and atorvastatin. (3) Stented coronary artery: Comment: OM1 stent 06/25/2019, distal and mid left circumflex stents 09/15/2023 in [place] Code(s): Z95.5 - Presence of coronary angioplasty implant and graft Category: Surgical Plan: As above (4) Aortic stenosis: Code(s): I35.0 - Nonrheumatic aortic (valve) stenosis Category: Medical Plan: Echocardiogram from [place] 10/30/2023 showed EF 60-65%, moderate aortic stenosis with aortic valve area 1.1 centimeter sq. Echocardiogram 02/17/2025 at [facility] shows EF 60-65%, moderate aortic stenosis with mean gradient 16 mmHg. Cardinal signs of severe reviewed with him. Will plan for repeat echocardiogram in 1 year from last, sooner if he develops symptoms.. (5) HTN (hypertension): Code(s): I10 - Essential (primary) hypertension Category: Medical Qualifiers: Hypertension type: unspecified Qualified Code(s): I10 - Essential (primary) hypertension Plan: Blood pressure goal less than 130/80, well controlled at present. Continue metoprolol and isosorbide. (6) Diabetes mellitus: Code(s): E11.9 - Type 2 diabetes mellitus without complications Category: Medical Qualifiers: Diabetes mellitus complication status: with hyperglycemia Diabetes mellitus alf insulin use: with alf use Diabetes mellitus type: type 2 Qualified Code(s): E11.65 - Type 2 diabetes mellitus with hyperglycemia; Z79.4 - medical terminologist (current) use of insulin Plan: Hemoglobin A1c goal less than 7. Followed by PCP. (7) Hyperlipemia: Code(s): E78.5 - Hyperlipidemia, unspecified Category: Medical Qualifiers: Hyperlipidemia type: unspecified Qualified Code(s): E78.5 - Hyperlipidemia, unspecified Plan: Bryant LDL goal less than 70. Labs done 01/29/2025 showed LDL 80. Continue atorvastatin 80 mg daily. Will add Zetia 10 mg daily. Plan for fasting lipids prior to next visit. (8) Claudication: Code(s): I73.9 - Peripheral vascular disease, unspecified Category: Medical Plan: Reports of symptoms suggesting claudication, left greater than right. He has known CAD and carotid stenosis. Will check a lower extremity arterial ultrasound to assess for arterial stenosis. Plan to call him with results. Plan I discussed with the patient the results of the stress test and echocardiogram, which showed no active ischemia and a normal ejection fraction, but moderate aortic stenosis. We talked about the importance of managing cholesterol levels and decided to add Zetia to the current atorvastatin regimen. I explained the need for a repeat echocardiogram in one year unless new symptoms develop. We also discussed discontinuing clopidogrel as it has been over a year since the last stent placement. I advised the patient to maintain physical activity within his limits to help manage cardiovascular health and neuropathy symptoms. Orders: Orders US arterial duplex LE BI Today I73.9 - Peripheral vascular disease, unspecified CA echo transthoracic complete 11 Months I35.0 - Nonrheumatic aortic (valve) stenosis Medications: New ezetimibe (Zetia) new cholesterol lowering agent 10 mg PO DAILY 90 tabs 3RF Discontinued clopidogrel Discontinued Reason: Doctor's Order 75 mg PO DAILY 90 tabs 2RF Patient Instructions: - Continue taking atorvastatin and start Zetia as prescribed. - Recheck fasting lipids in 2 months. - Discontinue clopidogrel as advised. - Schedule a repeat echocardiogram in one year or sooner if new symptoms develop. - Lower extremety arterial ultrasound to evaluate blood flow in legs. - Maintain physical activity within your limits to support cardiovascular health. - Follow up in six months or sooner if needed. Patient was informed and verbally consented to the use of an ambient scribe for clinic note documentation during this visit. Visit time spent on chart review, interview, assessment, orders, documentation. Coding Level of Care Code Est Pt Level 4 (30226) Complex EM visit Add On G2211 Diagnoses Coronary artery disease of [place] heart with stable angina pectoris, unspecified vessel or lesion type I25.118 Associated angina: with stable angina Coronary Disease-Associated Artery/Lesion type: unspecified vessel or lesion type [place] vs. 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
== END 2025-03-14 14:36 | disposition home or self-care (01) ==
LOC: HO.HCS 13:28
PROVIDERS: Visit Provider Nurse Practitioner Family
DX: I25.118 Atherosclerotic heart disease of native coronary artery with other forms of angina pectoris (principal); I65.23 Occlusion and stenosis of bilateral carotid arteries; Z95.5 Presence of coronary angioplasty implant and graft; I35.0 Nonrheumatic aortic (valve) stenosis; I10 Essential (primary) hypertension; E11.65 Type 2 diabetes mellitus with hyperglycemia; Z79.4 Long term (current) use of insulin; E78.5 Hyperlipidemia, unspecified; I73.9 Peripheral vascular disease, unspecified
CPT/HCPCS: 99214; G2211

== ENCOUNTER → 2025-03-14 13:27 | Outpatient (BNVA) | payer MEDICARE, MEDICAID, SELFPAY | PROVIDERS: Visit Provider Nurse Practitioner Family | DX: I25.118 Atherosclerotic heart disease of native coronary artery with other forms of angina pectoris (principal); I65.23 Occlusion and stenosis of bilateral carotid arteries; I35.0 Nonrheumatic aortic (valve) stenosis; I10 Essential (primary) hypertension; I73.9 Peripheral vascular disease, unspecified; E11.65 Type 2 diabetes mellitus with hyperglycemia; E78.5 Hyperlipidemia, unspecified; Z79.4 Long term (current) use of insulin; Z95.5 Presence of coronary angioplasty implant and graft | CPT/HCPCS: 99212 ==

== ENCOUNTER 2025-04-02 10:17 | Outpatient (AMB) | payer MEDICARE, MEDICAID, SELFPAY ==
[2025-04-02 10:21] VITALS: BP 120/80; PULSE 84; O2SAT 91; BMI 30.7
--- NOTE | 2025-04-02 10:21 | A.OFFVIS_ITS ---
Vital Signs 04/02/25 10:21 Height 5 ft 7 in Weight 196 lb 3.382 oz BMI 30.7 BP 120/80 Blood Pressure Location Rt brachial Position Sitting Pulse 84 Pulse Source Pulse Oximeter Pulse Oximetry (%) 91 L Oxygen Delivery Method Room Air Intake Visit Reasons: Type 2 diabetes mellitus with hyperglycemia Intake Note: NEW Patient presents today to establish treatment for Type 2 Diabetes Mellitus: Last Diabetic eye exam was on: DUE, has an appt coming up this month at [facility] Last Podiatry exam was on: Patient does not see a Linux Administrator Most recent HbA1c: 8.0%, 01/29/2025 Random Glucose: 163 mg/dL Renal Nurse Required: No Accompanied by: Daughter Allergies hazelnuts Allergy (Severe, Uncoded 04/02/25 10:22) swelling, hives HPI Comments Details: The patient is a 69-year-old male for consultation diabetes mellitus Medical history: CAD, CVA, b/l endarterectomy, htn, hld Diabetes diagnosed ~20 years ago. Diabetes medications Trulicity 4.5 weekly Lantus 25 units BID -compliant Novolog SS-generally have been giving 10 units if BG 200s, 20 units if BG 300s or above Has been on metformin. Reports he tolerated. Normal GFR Last A1C 8.0% 01/2025 Dexcom CGM reviewed 30 day GMI 9.2% a few lows-these were checked by daughter with fingerstick and readings were in 120s On statin therapy, zetia Neuropathy on pregabalin ROS CONSTITUTIONAL: Denies weight loss, fever and chills. HEENT: Denies changes in vision and hearing. RESPIRATORY: Denies SOB and cough. CV: Denies palpitations and CP GI: Denies abdominal pain, nausea, vomiting and diarrhea. : Denies dysuria and urinary frequency. MSK: Denies new myalgia and joint pain. SKIN: Denies rash and pruritus. NEUROLOGICAL: Denies headache PSYCHIATRIC: Denies recent changes in mood. PHYSICAL EXAM: GENERAL: Alert and oriented x 3. NAD EYES: EOMI. Anicteric. HENT: Moist mucous membranes. right scleral injection LUNGS: Clear to auscultation bilaterally. CARDIOVASCULAR: Regular rate and rhythm. + murmur. ABDOMEN: Soft, non-tender +bs EXTREMITIES: No edema. Non-tender. SKIN: No rashes or lesions. Warm. NEUROLOGIC: No focal neurological deficits. CN II-XII grossly intact PSYCHIATRIC: Cooperative. Appropriate mood and affect [facility] Medical History Depression Restless leg syndrome Neuropathy Diabetes mellitus CVA (cerebral vascular accident) Type 2 diabetes mellitus HTN (hypertension) Surgical History History of carpal tunnel surgery History of surgery Family History Father No problems noted. Mother Heart disease Social History Household Members: Other Household Members Other:: daughter Housing: House Do you presently have visiting nurse or other home services: No Alcohol intake: current Alcohol intake frequency: holidays/special occasions only Alcohol type: beer Patient Tobacco Use Status: Former Tobacco user Tobacco use type: Cigarette e-Cigarette/Vaping Use: Never Used Second Hand Smoke Exposure: No service: No Current occupational status: retired and disabled Cognitive needs: Yes Hearing needs: No Vision needs: Yes Physical Exam Vital Signs: Last Vital Signs Pulse 84 04/02/25 10:21 BP 120/80 04/02/25 10:21 Pulse Ox 91 L 04/02/25 10:21 Oxygen Delivery Method Room Air 04/02/25 10:21 BMI result Body Mass Index 30.7 Results Reviewed Results Reviewed: Laboratory Last Values Glucose (Clinic) 163 mg/dL (60-115) H 04/02/25 10:27 Assessment & Plan Assessment & Plan (1) Diabetes mellitus: Code(s): E11.9 - Type 2 diabetes mellitus without complications Category: Medical Qualifiers: Diabetes mellitus type: type 2 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 continue current lantus, trulicity dose Start metformin 1000mg daily Treat hypoglycemia rules of 15s Return in one month for diabetic follow up Orders: Orders IRON PROFILE Today E11.65 - Type 2 diabetes mellitus with hyperglycemia, Z79.4 - [facility] (current) use of insulin Medications: New metformin ER (Fortamet) 1,000 mg PO DAILY 90 tabs 2RF Changed From insulin aspart U-100 (Novolog U-100 Insulin aspart) per sliding scale tid with meals and at bedtime; BG <111 0 units, 111-150 - 0 units, 151-200 2 units, 201-250 4 units, 251-300 6 units, 301-350 8 units, >350 10 units and call MD 1 sliding scale dose subcut USEASDIRECTD 10 mL 3RF To insulin aspart U-100 (Novolog U-100 Insulin aspart) per sliding scale with meals up to four times daily BG <150 0 units 151-200 10 units 201-300 15 units >300 20 units 1 sliding scale dose subcut USEASDIRECTD 10 mL 3RF Refilled insulin glargine (Lantus Solostar U-100 Insulin) 25 units (0.25 mL) subcut BID 15 mL 3RF E11.65 - Type 2 diabetes mellitus with hyperglycemia, Z79.4 - [facility] (current) use of insulin Discontinued insulin glargine-yfgn (Semglee (insulin glargine-yfgn) Pen) Discontinued Reason: Doctor's Order 25 units (0.25 mL) subcut BID 15 mL 3RF Coding Level of Care Code Est Pt Level 4 (24959) Complex EM visit Add On G2211 Diagnoses Type 2 diabetes mellitus with hyperglycemia, with long-term current use of insulin E11.65; Z79.4 Diabetes mellitus type: type 2 Diabetes mellitus fdc insulin use: with fdc use Diabetes mellitus complication status: with hyperglycemia Insulin long-term use Z79.4 Neuropathy G62.9
[2025-04-02 10:33] LABS: Glucose, Whole Blood 163 mg/dL (60-115)
--- OUTSIDE RECORDS SUMMARY | 2025-04-02 12:30 | XMS_ITS | Patient Health Record ---
Author Organization [facility] Address [address] [place] [id number] Care Team Providers Care Executive Receptionist Name Role Phone MaysNeel Unavailable [phone] Reason For Referral No Information Plan Of Treatment No Information
== END 2025-04-02 11:05 | disposition home or self-care (01) ==
LOC: HO.ENCR 10:18
PROVIDERS: Visit Provider Internal Medicine
DX: E11.65 Type 2 diabetes mellitus with hyperglycemia (principal); Z79.4 Long term (current) use of insulin; G62.9 Polyneuropathy, unspecified

== ENCOUNTER → 2025-04-02 10:17 | Outpatient (BNVA) | payer MEDICARE, MEDICAID, SELFPAY | PROVIDERS: Visit Provider Internal Medicine | DX: E11.65 Type 2 diabetes mellitus with hyperglycemia (principal); E11.42 Type 2 diabetes mellitus with diabetic polyneuropathy; Z79.4 Long term (current) use of insulin | CPT/HCPCS: 82947; 99212 ==

== ENCOUNTER 2025-04-03 11:14 | Outpatient (AMB) | payer MEDICARE, MEDICAID, SELFPAY ==
--- NOTE | 2025-04-03 11:55 | A.OFFVIS_ITS ---
Intake Visit Reasons: Elevated PSA Intake Note: patient presents today for: new pt elavated PSA urology medications: none blood thinners: aspirin labs done 08/16/24: PSA 9.4 Electrocardiograph Repairer Required: No Accompanied by: Daughter Allergies hazelnuts Allergy (Severe, Uncoded 04/03/25 11:56) swelling, hives HPI Comments Details: - PSA 08/17 9.4 PFSH Medical History Depression Restless leg syndrome Neuropathy Diabetes mellitus CVA (cerebral vascular accident) Type 2 diabetes mellitus HTN (hypertension) Surgical History History of carpal tunnel surgery History of surgery Family History Father No problems noted. Mother Heart disease Social History Household Members: Other Household Members Other:: daughter Housing: House Do you presently have visiting nurse or other home services: No Alcohol intake: current Alcohol intake frequency: holidays/special occasions only Alcohol type: beer Patient Tobacco Use Status: Former Tobacco user Tobacco use type: Cigarette e-Cigarette/Vaping Use: Never Used Second Hand Smoke Exposure: No service: No Current occupational status: retired and disabled Cognitive needs: Yes Hearing needs: No Vision needs: Yes Results AMB Urinalysis, Automated UA Leukoctes 15 Kavitha/uL Last Edit by XIOMY Vazquez on 04/03/25 15:50 UA Nitrite Negative Last Edit by XIOMY Vazquez on 04/03/25 15:50 UA Urobilinogen 0.2 mg/dL Last Edit by XIOMY Vazquez on 04/03/25 15:5 0 UA Protein 0 mg/dL Last Edit by XOIMY Vazquez on 04/03/25 15:50 UA pH 6.0 Last Edit by XIOMY Vazquez on 04/03/25 15:50 UA Blood 0 Lisandro/uL Last Edit by XIOMY Vazquez on 04/03/25 15:50 UA Specific [place] 1.015 Last Edit by XIOMY Vazquez on 04/03/25 15: 50 UA Ketone Negative Last Edit by XIOMY Vazquez on 04/03/25 15:50 UA Bilirubin 0 mg/dL Last Edit by XIOMY Vazquez on 04/03/25 15:50 UA Glucose 100 mg/dL Last Edit by XIOMY Vazquez on 04/03/25 15:50 Assessment & Plan Assessment & Plan Orders: Orders AMB Urinalysis Automated Today Z13.9 - Encounter for screening, unspecified PSA,Total (Free>4and<10) Today R97.20 - Elevated prostate specific antigen [PSA] US bladder Today R97.20 - Elevated prostate specific antigen [PSA] Medications: New terazosin 5 mg PO BEDTIME 30 caps 1RF 30 days R97.20 - Elevated prostate specific antigen [PSA] Coding
--- OUTSIDE RECORDS SUMMARY | 2025-04-03 15:34 | XMS_ITS | Patient Health Record ---
Author Organization [facility] Address [address] [place] [phone] Care Team Providers Care Case Assembler Name Role Phone MaysNeel Unavailable [phone] Reason For Referral No Information Plan Of Treatment No Information
--- OUTSIDE RECORDS SUMMARY | 2025-04-03 15:34 | XMS_ITS | Clinical Summary ---
Author Organization [address] [place] [address] Address [address] [place] [address] Phone Care Team Providers Care Associate Accountant Name Role Phone Paco Christy SAMUEL Primary Care Provider Social History Tobacco Use Types Packs/Day Years Used Date Smoking Tobacco: Never Assessed Sex and Gender Information Value Date Recorded Sex Assigned at Not on file Legal Sex Male 8:22 AM EDT Gender Identity Not on file Sexual Orientation Not on file Plan of Treatment Upcoming Encounters Date Type Department Care Team ([facility] Contact Info) Description 04/15/2025 10:15 AM EDT Office Visit Orthopedic Surgery [facility] [address] [address] Abhishek Quiros, DPM [address] [address] Health Maintenance Due Date Last Done Comments Diabetes: Annual GFR (Glomer ular Filtration Rate) 1954 Diabetes: Annual Foot Exam 1964 Diabetes: Annual Retina Eye Exam 1964 DTaP,Tdap,and Td Vaccines (1 - Tdap) 1973 Pneumococcal Vaccine: 50+ Ye ars (1 of 2 - PCV) 1973 Zoster Vaccines (1 of 2) 2004 Depression Screening 07/24/2024 Abdominal Aortic Aneurysm (A AA) Screen 01/02/2025 Cholesterol Screening (Lipid Panel) 01/02/2025 Colorectal Cancer Screening: Colonoscopy 01/02/2025 Diabetes: Annual Urine Albumin-Creatinine Ratio (uACR) 01/02/2025 Diabetes: Blood Sugar Contro l Test (HGBA1C) 01/02/2025 Falls Risk Assessment 01/02/2025 Hepatitis C Screening 01/02/2025 Medicare Annual Wellness Visit 01/02/2025 Social Influencers of Health Screening 01/02/2025 COVID-19 Vaccine (1 - 2023-2 5 season) 2025 Influenza Vaccine (#1) 2025 RSV Immunization Adult [...] this topic Insurance MEDICARE [place] Member Subscriber Plan / Payer (Ef fective 2024-Present) Name:MEME VASQUEZ Relation to Subscriber:Self Name:Meme Vasquez Payer ID:[id number] Group ID:Not on file Type:Not on file Address: [facility] [employer] [place] ATTN:[employer] [address] [place] [address] Care Teams Associate Accountant Relationship Specialty Start Date End Date Paco Christy FNP [address] [place] [address] PCP - General Family Medicine 01/02/25
== END 2025-04-03 12:35 | disposition home or self-care (01) ==
LOC: HO.HUSH 11:15
PROVIDERS: Visit Provider Urology
DX: Z13.9 Encounter for screening, unspecified (principal)

== ENCOUNTER → 2025-04-03 11:14 | Outpatient (BNVA) | payer MEDICARE, MEDICAID, SELFPAY | PROVIDERS: Visit Provider Urology | DX: R97.20 Elevated prostate specific antigen [PSA] (principal); N40.1 Benign prostatic hyperplasia with lower urinary tract symptoms; R35.1 Nocturia; R39.12 Poor urinary stream; Z13.9 Encounter for screening, unspecified | CPT/HCPCS: 81003; 99202 ==

== ENCOUNTER 2025-04-22 08:52 | Outpatient (REF) | payer MEDICARE, MEDICAID, SELFPAY ==
--- OUTSIDE RECORDS SUMMARY | 2025-04-22 09:27 | XMS_ITS | Clinical Summary ---
Author Organization [address] [place] [address] Address [address] [place] [address] Phone Care Team Providers Care Alternative Financing Specialist Name Role Phone Paco Christy SAMUEL Primary Care Provider Allergies No known active allergies Medications No known medications Encounters Date Type Department Care Team Description 04/15/2025 10:15 AM EDT Office Visit Orthopedic Surgery [facility] [address] [address] Abhishek Quiros DPM Diabetic mononeuropathy simplex (CMS/HCC V24, CMS/HCC V28) (Primary Dx); Type 2 diabetes mellitus with hyperglycemia (CMS/HCC V24, CMS/HCC V28); Type II diabetes mellitus with peripheral circulatory disorder (CMS/HCC V24, CMS/HCC V28); Dermatophytosis of nail; Pain in toe of right foot; Pain in toe of left foot from Last 3 Months Social History Tobacco Use Types Packs/Day Years Used Date Smoking Tobacco: Never Assessed Sex and Gender Information Value Date Recorded Sex Assigned at Not on file Legal Sex Male 8:22 AM EDT Gender Identity Not on file Sexual Orientation Not on file Plan of Treatment Upcoming Encounters Date Type Department Care Team (Late st Contact Info) Description 07/15/2025 10:15 AM EST Office Visit Orthopedic Surgery [facility] [address] [address] Abhishek Quiros DPM [address] [address] Health Maintenance Due Date Last Done Comments Colorectal Cancer Screening: Colonoscopy 1954 Diabetes: Annual GFR (Glomer ular Filtration Rate) 1954 Diabetes: Annual Foot Exam 1964 Diabetes: Annual Retina Eye Exam 1964 DTaP,Tdap,and Td Vaccines (1 - Tdap) 1973 Pneumococcal Vaccine: 50+ Ye ars (1 of 2 - PCV) 1973 Zoster Vaccines (1 of 2) 2004 RSV Immunization Adult Patie nts (1 - Risk 60-74 years 1-dose series) 2014 Depression Screening 07/24/2024 Abdominal Aortic Aneurysm (A AA) Screen 01/02/2025 Cholesterol Screening (Lipid Panel) 01/02/2025 Falls Risk Assessment 01/02/2025 Hepatitis C Screening 01/02/2025 Medicare Annual Wellness Visit 01/02/2025 Social Influencers of Health Screening 01/02/2025 COVID-19 Vaccine (1 - 2023-2 5 season) 2025 Influenza Vaccine (#1) 2025 Diabetes: Annual Urine Albumin-Creatinine Ratio (uACR) 04/15/2025 Diabetes: Blood Sugar Contro l Test (HGBA1C) 04/15/2025 HIB Vaccines Aged Out No longer eligi [...] Insurance MEDICARE MEDICAID - [place] Care Teams Alternative Financing Specialist Relationship Specialty Start Date End Date Paco Christy FNP [address] [place] [id number] PCP - General Family Medicine 01/02/25
--- OUTSIDE RECORDS SUMMARY | 2025-04-22 09:27 | XMS_ITS | Patient Health Record ---
Author Organization [facility] Address [address] [place] [id number] Care Team Providers Care Flake Drier Name Role Phone MaysNeel Unavailable [phone] Reason For Referral No Information Plan Of Treatment No Information
[2025-04-22 10:48] LABS: Appearance Urine Clear; Glucose Urine UA Negative (Negative); PH 6.0 (5.0-9.0); Specific Gravity - Urine 1.010 (1.005-1.025); UMIC TRIGGER UACC YES
[2025-04-22 11:05] LABS: MANUAL DIFF FLAG NO
[2025-04-22 11:12] LABS: Hematocrit 53.8 % (42.0-52.0); Hemoglobin 17.7 g/dl (14.0-18.0); Imm Gran Abs Auto 0.03 X10*3/uL (0.00-0.03); Imm Gran Pct Auto 0.3 % (0.0-0.4); Lymphocytes Absolute Auto 2.8 X10*3/uL (1.2-4.9); Mean Corpuscular HGB Conc 32.9 g/dl (31.0-36.0); Mean Corpuscular Hemoglobin 30.4 pg (27.0-33.0); Mean Corpuscular Volume 92.3 fL (80.0-98.0); NRBC Abs Auto 0.000 X10*3/uL (0.0-0.012); NRBC Pct Auto 0.0 /100WBC (0.0-0.2); Platelet Count 169 X10*3/uL (160-400); Red Blood Count 5.83 X10*6/uL (4.60-5.80); White Blood Count 9.0 X10*3/uL (4.8-10.8)
[2025-04-22 11:48] LABS: Alanine Aminotransferase 31 U/L (0-40); Albumin Level 4.0 g/dL (3.5-5.0); Alkaline Phosphatase 96 U/L (39-117); Anion Gap 10 (12-20); Aspartate Amino Transferase 25 U/L (5-37); Blood Urea Nitrogen 19 mg/dL (9-16); Calcium 9.1 mg/dL (8.4-10.2); Carbon Dioxide 30 mmol/L (22-29); Chloride 108 mmol/L (96-108); Cholesterol 131 mg/dL (<200); Estimated Glomerular Filt Rate > 60; HDL Cholesterol 37 mg/dL (>40); Iron 81 mcg/dL (45-160); Percent Iron Saturation 27 % (15-50); Potassium 4.7 mmol/L (3.3-5.1); Sodium 143 mmol/L (135-145); Total Iron Binding Capacity 301 mcg/dL (228-428); Total Protein 6.8 g/dL (6.5-8.0); Triglycerides 105 mg/dL (<150); Unsaturated Iron Binding 220 ug/dL
== END 2025-04-22 08:53 | disposition home or self-care (01) ==
LOC: HO.10HDL 08:52
DX: E11.65 Type 2 diabetes mellitus with hyperglycemia (principal); I25.118 Atherosclerotic heart disease of native coronary artery with other forms of angina pectoris; I63.9 Cerebral infarction, unspecified; F32.A Depression, unspecified; I10 Essential (primary) hypertension; I95.2 Hypotension due to drugs; E78.5 Hyperlipidemia, unspecified; Z95.5 Presence of coronary angioplasty implant and graft; Z79.4 Long term (current) use of insulin
CPT/HCPCS: 36415; 80053; 80061; 81001; 83036; 83540; 84443; 85025

== ENCOUNTER 2025-04-30 08:51 | Outpatient (AMB) | payer MEDICARE, MEDICAID, SELFPAY ==
[2025-04-30 08:53] VITALS: BP 92/64; PULSE 86; O2SAT 98; BMI 31.2
--- NOTE | 2025-04-30 08:53 | MHC.OFFVIS ---
Vital Signs 04/30/25 08:53 Height 5 ft 7 in Weight 199 lb 8.293 oz BMI 31.2 BP 92/64 Blood Pressure Location Rt brachial Position Sitting Pulse 86 Pulse Source Pulse Oximeter Pulse Oximetry (%) 98 Oxygen Delivery Method Room Air Intake Visit Reasons: follow up DM A1C Intake Note: Patient presents today for a follow-up on Type 2 Diabetes Mellitus: Last Diabetic eye exam was on: 04/11/2025, [facility], Patient has Diabetic Retinopathy & Presbyopia Last Podiatry exam was on:04/15/2025, DR Quiros at [facility] Most recent HbA1c: 8.7%, 04/22/2025 Random Glucose: 159 mg/dL Oxidation Engineer Required: No Accompanied by: Daughter Allergies hazelnuts Allergy (Severe, Uncoded 04/30/25 08:58) swelling, hives HPI Comments Details: The patient is a 69-year-old male for consultation diabetes mellitus Medical history: CAD, CVA, b/l endarterectomy, htn, hld Diabetes diagnosed ~20 years ago. Diabetes medications Trulicity 4.5 weekly Tresiba 50 units daily (was on Lantus 25 units BID previously) Novolog SS-generally have been giving 10 units if BG 200s, 20 units if BG 300s or above Metformin 500 bid added last visit Last A1C 8.7 up 04/22/25 from 8.0% 01/2025 Dexcom CGM reviewed 30 day GMI 7.7% target 46%, high 54% no lows On statin therapy, zetia Neuropathy on pregabalin Interval eye exam-referred for laser therapy History of cataracts ROS CONSTITUTIONAL: Denies weight loss, fever and chills. HEENT: Denies changes in vision and hearing. RESPIRATORY: Denies SOB and cough. CV: Denies palpitations and CP GI: Denies abdominal pain, nausea, vomiting and diarrhea. : Denies dysuria and urinary frequency. MSK: Denies new myalgia and joint pain. SKIN: Denies rash and pruritus. NEUROLOGICAL: Denies headache PSYCHIATRIC: Denies recent changes in mood. PHYSICAL EXAM: GENERAL: Alert and oriented x 3. NAD EYES: EOMI. Anicteric. HENT: Moist mucous membranes. right scleral injection LUNGS: Clear to auscultation bilaterally. CARDIOVASCULAR: Regular rate and rhythm. + murmur. ABDOMEN: Soft, non-tender +bs EXTREMITIES: No edema. Non-tender. SKIN: No rashes or lesions. Warm. NEUROLOGIC: No focal neurological deficits. CN II-XII grossly intact PSYCHIATRIC: Cooperative. Appropriate mood and affect [facility] Medical History Depression Restless leg syndrome Neuropathy Diabetes mellitus CVA (cerebral vascular accident) Type 2 diabetes mellitus HTN (hypertension) Surgical History History of carpal tunnel surgery History of surgery Family History Father No problems noted. Mother Heart disease Social History Household Members: Other Household Members Other:: daughter Housing: House Do you presently have visiting nurse or other home services: No Alcohol intake: current Alcohol intake frequency: holidays/special occasions only Alcohol type: beer Patient Tobacco Use Status: Former Tobacco user Tobacco use type: Cigarette e-Cigarette/Vaping Use: Never Used Second Hand Smoke Exposure: No service: No Current occupational status: retired and disabled Cognitive needs: Yes Hearing needs: No Vision needs: Yes Physical Exam Vital Signs: Last Vital Signs Pulse 86 04/30/25 08:53 BP 92/64 04/30/25 08:53 Pulse Ox 98 04/30/25 08:53 Oxygen Delivery Method Room Air 04/30/25 08:53 BMI result Body Mass Index 31.2 Assessment & Plan Assessment & Plan (1) Diabetes mellitus: Code(s): E11.9 - Type 2 diabetes mellitus without complications Category: Medical Qualifiers: Diabetes mellitus type: type 2 Diabetes mellitus jail insulin use: with jail use Diabetes mellitus complication status: with hyperglycemia Qualified Code(s): E11.65 - Type 2 diabetes mellitus with hyperglycemia; 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 Tolerating without side effect. Increase to 1000mg twice daily Hold current insulin doses. 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 (current) use of insulin Changed From metformin ER (Glucophage XR) 1,000 mg (2 x 500 mg) PO DAILY 180 tabs 1RF To metformin ER (Glucophage XR) 1,000 mg (2 x 500 mg) PO BID 360 tabs 3RF Discontinued metformin ER (Fortamet) Discontinued Reason: Doctor's Order 1,000 mg PO DAILY 90 tabs 2RF On Hold dulaglutide (Trulicity) Hold Comment: Dose Change 4.5 mg (0.5 mL) subcut LARA 2 mL 2RF Coding Level of Care Code Est Pt Level 4 (61262) Diagnoses Type 2 diabetes mellitus with hyperglycemia, with long-term current use of insulin E11.65; Z79.4 Diabetes mellitus type: type 2 Diabetes mellitus jail insulin use: with jail use Diabetes mellitus complication status: with hyperglycemia Insulin long-term use Z79.4
[2025-04-30 09:04] LABS: Glucose, Whole Blood 159 mg/dL (60-115)
== END 2025-04-30 09:32 | disposition home or self-care (01) ==
LOC: HO.ENCR 08:52
PROVIDERS: Visit Provider Internal Medicine
DX: E11.65 Type 2 diabetes mellitus with hyperglycemia (principal); Z79.4 Long term (current) use of insulin

== ENCOUNTER → 2025-04-30 08:51 | Outpatient (BNVA) | payer MEDICARE, MEDICAID, SELFPAY | PROVIDERS: Visit Provider Internal Medicine | DX: E11.65 Type 2 diabetes mellitus with hyperglycemia (principal); Z79.4 Long term (current) use of insulin; Z79.85 Long-term (current) use of injectable non-insulin antidiabetic drugs | CPT/HCPCS: 82947; 99212 ==

== ENCOUNTER 2025-05-08 13:23 | Outpatient (REF) | payer MEDICARE, MEDICAID, SELFPAY ==
--- NOTE | ~2025-05-08 | US_ITS ---
EXAMINATION: Noninvasive assessment of the bilateral lower extremities without ARTERIAL DUPLEX, ANKLE BRACHIAL INDICES (ABIs), and PULSE VOLUME RECORDINGS (PVRs). CLINICAL INFORMATION: I73.9. Peripheral vascular disease, unspecified. TECHNIQUE: Duplex Doppler techniques with waveform analysis and measurement of velocities in the bilateral common femoral, profunda femoris, superficial femoral, popliteal and tibial arteries were performed. The study was performed only at rest. COMPARISON: None FINDINGS: DIRECT DUPLEX DOPPLER FINDINGS: RIGHT LEG: Common femoral artery: 223 cm/s, phasicity: Monophasic. Spectral broadening. Profunda femoris artery: 138 cm/s, phasicity: Biphasic. Spectral broadening. Superficial femoral artery (proximal): 176 cm/s, phasicity: Biphasic. Spectral broadening. Superficial femoral artery (mid): 157 cm/s, phasicity: Biphasic. Spectral broadening. Superficial femoral artery (distal): 142 cm/s, phasicity: Monophasic. Spectral broadening. Popliteal artery: 79 cm/s, phasicity: Biphasic. Spectral broadening. Posterior tibial artery: 28 cm/s, phasicity: Biphasic. Spectral broadening. Peroneal artery: 15 cm/s, phasicity: Monophasic. Spectral broadening. Anterior tibial artery: 13 cm/s, phasicity: Monophasic. Spectral broadening. Dorsalis pedis artery: 9 cm/s, phasicity:Monophasic. Spectral broadening. LEFT LEG: Common femoral artery: 61 cm/s, phasicity: Monophasic. Spectral broadening Profunda femoris artery: 62 cm/s, phasicity: Monophasic. Spectral broadening. Superficial femoral artery (proximal): 97 cm/s, phasicity: Monophasic. Spectral broadening. Superficial femoral artery (mid): 48 cm/s, phasicity: Monophasic. Spectral broadening. Superficial femoral artery (distal): 48 cm/s, phasicity: Monophasic. Spectral broadening. Popliteal artery: 18 cm/s, phasicity: Monophasic. Spectral broadening. Posterior tibial artery: 14 cm/s, phasicity: Monophasic. Spectral broadening. Peroneal artery: 8 cm/s, phasicity: Monophasic. Spectral broadening. Anterior tibial artery: 7 cm/s, phasicity: Monophasic. Dorsalis pedis artery: No color Doppler flow. 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 Left: Severe inflow disease throughout the interrogated arteries. Questionable occluded dorsalis pedis artery. : Electronically signed by: Christiano Jimenez MD 05/08/2025 02:40 PM EDT RP
--- OUTSIDE RECORDS SUMMARY | 2025-05-08 16:47 | XMS_ITS | Patient Health Record ---
Author Organization [facility] Address [address] [place] [id number] Care Team Providers Care Quality Control Auditor Name Role Phone MaysNeel Unavailable [phone] Reason For Referral No Information Plan Of Treatment No Information
--- OUTSIDE RECORDS SUMMARY | 2025-05-08 16:47 | XMS_ITS | Clinical Summary ---
Author Organization [address] [place] [address] Address [address] [place] [address] Phone Care Team Providers Care Certified Medical Records Coder Name Role Phone Paco Christy SAMUEL Primary Care Provider Allergies No known active allergies Medications No known medications Encounters Date Type Department Care Team Description 04/15/2025 10:15 AM EDT Office Visit Orthopedic Surgery [facility] [address] [phone] Abhishek Quiros DPM Diabetic mononeuropathy [...] 10:15 AM EST Office Visit Orthopedic Surgery [facility] [address] [address] Abhishek Quiros DPM [address] [address] Health Maintenance Due Date Last [...] Insurance MEDICARE [place]ICAID - [place] Care Teams Certified Medical Records Coder Relationship Specialty Start Date End Date Paco Christy FNP [address] [place] [id number] PCP - General Family Medicine 01/02/25
== END 2025-05-08 13:24 | disposition home or self-care (01) ==
LOC: HO.US 13:23
PROVIDERS: Visit Provider Nurse Practitioner Family
DX: I73.9 Peripheral vascular disease, unspecified (principal)
CPT/HCPCS: 93925

== ENCOUNTER → 2025-05-08 13:26 | Outpatient (BNV) | payer MEDICARE, MEDICAID, SELFPAY | PROVIDERS: Visit Provider Radiology Diagnostic Radiology | DX: I73.9 Peripheral vascular disease, unspecified (principal) | CPT/HCPCS: 93925 ==

== ENCOUNTER 2025-05-20 10:14 | Outpatient (REF) | payer MEDICARE, MEDICAID, SELFPAY ==
[2025-05-20 11:11] LABS: Appearance Urine Clear; Glucose Urine UA Negative (Negative); PH 5.5 (5.0-9.0); Specific Gravity - Urine 1.020 (1.005-1.025); UMIC TRIGGER UACC YES
[2025-05-20 11:32] LABS: PSA,Total (Free>4and<10) 9.54 ng/mL (0.00-4.00)
[2025-05-20 11:33] LABS: UACC Culture Trigger YES
--- OUTSIDE RECORDS SUMMARY | 2025-05-20 12:35 | XMS_ITS | Patient Health Record ---
Author Organization [facility] Address [address] [place] [id number] Care Team Providers Care Surgical Specialist Name Role Phone MaysNeel Unavailable [phone] Reason For Referral No Information Plan Of Treatment No Information
--- OUTSIDE RECORDS SUMMARY | 2025-05-20 12:35 | XMS_ITS | Clinical Summary ---
Author Organization [address] [place] [address] Address [address] [place] [address] Phone Care Team Providers Care Oyster Tonger Name Role Phone Paco Christy SAMUEL Primary Care Provider Allergies No known active allergies Medications No known medications Encounters Date Type Department Care Team Description 04/15/2025 10:15 AM EDT Office Visit Orthopedic [facility] [address] [address] Abhishek Quiros DPM Diabetic mononeuropathy [...] 07/15/2025 10:15 AM EST Office Visit Orthopedic [facility] [address] [address] Abhishek Quiros DPM [address] [place] [phone] Health Maintenance Due Date Last Done Comments Colorectal Cancer Screening: Colonoscopy 1954 Diabetes: Annual GFR (Glomer ular Filtration Rate) 1954 Diabetes: Annual Foot Exam 1964 Diabetes: Annual Retina Eye Exam 1964 DTaP,Tdap,and Td Vaccines (1 - Tdap) 1973 Pneumococcal Vaccine: 50+ Ye ars (1 of 2 - PCV) 1973 RSV Immunization Adult Patie nts (1 - Risk 50-74 years 1-dose series) 2004 Zoster Vaccines (1 of 2) 2004 Depression Screening 07/24/2024 Abdominal Aortic Aneurysm (A AA) Screen 01/02/2025 Cholesterol Screening (Lipid Panel) 01/02/2025 Falls Risk Assessment 01/02/2025 Hepatitis C Screening 01/02/2025 Medicare Annual Wellness Visit 01/02/2025 Social Influencers of Health Screening 01/02/2025 COVID-19 Vaccine ( - 2023-2 5 season) 2025 Influenza Vaccine [...] Insurance MEDICARE MEDICAID - [place] Care Teams Oyster Tonger Relationship Specialty Start Date End Date Paco Christy FNP [address] [place] [address] PCP - General Family Medicine 01/02/25
[2025-05-21 13:04] LABS: Free Prostate Spec Ag 2.5 ng/mL; Percent Free Prostate Spec Ag 26 % (calc) (>25)
== END 2025-05-20 10:15 | disposition home or self-care (01) ==
LOC: HO.LAB 10:14
PROVIDERS: Visit Provider Urology
DX: R97.20 Elevated prostate specific antigen [PSA] (principal); R79.89 Other specified abnormal findings of blood chemistry; I10 Essential (primary) hypertension; I25.118 Atherosclerotic heart disease of native coronary artery with other forms of angina pectoris; E78.5 Hyperlipidemia, unspecified; E11.65 Type 2 diabetes mellitus with hyperglycemia; G25.81 Restless legs syndrome; R42 Dizziness and giddiness; I65.23 Occlusion and stenosis of bilateral carotid arteries; G62.9 Polyneuropathy, unspecified; F32.A Depression, unspecified; K59.00 Constipation, unspecified; R39.12 Poor urinary stream; R35.1 Nocturia; Z12.5 Encounter for screening for malignant neoplasm of prostate; Z87.891 Personal history of nicotine dependence; Z79.4 Long term (current) use of insulin; Z86.73 Personal history of transient ischemic attack (TIA), and cerebral infarction without residual deficits; Z95.5 Presence of coronary angioplasty implant and graft
CPT/HCPCS: 36415; 81001; 81003; 84153; 84154; 87086; 99212

== ENCOUNTER 2025-05-20 10:37 | Outpatient (AMB) | payer MEDICARE, MEDICAID, SELFPAY ==
--- NOTE | 2025-05-20 10:48 | A.OFFPC_ITS ---
Vital Signs 05/20/25 10:49 Height 5 ft 7 in Weight 191 lb 2 oz BMI 29.9 BP 104/58 L Blood Pressure Location Lt brachial Position Sitting Respiration 18 Pulse 86 Pulse Source Pulse Oximeter Temp 96.8 F Temp Source Temporal Artery Scan Pulse Oximetry (%) 96 Oxygen Delivery Method Room Air Intake Visit Reasons: dm/cad/htn/hld Physician Office Assistant Required: No Accompanied by: Self / Same As Patient Allergies hazelnuts Allergy (Severe, Uncoded 05/22/25 07:54) swelling, hives Medication List - Last Reconciled 05/22/25 by MILTON Linton amitriptyline 10 mg PO BEDTIME aspirin 81 mg PO DAILY atorvastatin 80 mg PO BEDTIME blood sugar diagnostic (BrowsarityTouch Verio test strips) As directed check blood sugar three times day blood-glucose meter (BrowsarityTouch Verio Reflect Meter) As directed Check blood sugar tid dulaglutide (Trulicity) 4.5 mg (0.5 mL) subcut LARA Held on 04/30/25. Instructions: Dose Change ezetimibe (Zetia) 10 mg PO DAILY famotidine 20 mg PO BID insulin aspart U-100 (Novolog U-100 Insulin aspart) 1 sliding scale dose subcut USEASDIRECTD insulin degludec (Tresiba FlexTouch U-200 insulin) 50 units (0.25 mL) subcut BEDTIME 90 days isosorbide mononitrate ER 30 mg PO DAILY lancets As directed check blood sugar three times a day metformin ER (Glucophage XR) 1,000 mg (2 x 500 mg) PO BID metoprolol succinate ER 25 mg PO DAILY Mounjaro (tirzepatide) 5 mg (0.5 mL) subcut QWEEK NS nitroglycerin 0.3 mg sublingual Q5M PRN pen needle, diabetic (Comfort EZ Pen [place]) four times daily pregabalin 200 mg PO BID ropinirole 2 mg PO BID terazosin 5 mg PO BEDTIME 30 days Tobacco use date assessed: 05/20/25 Fall risk assessment: No Falls in past year Last assessed Fall Risk: 05/20/25 Dental Screening Dental Screen Date: 05/20/25 Did you have a dental visit in the last 12 months?: No Did you have a dental problem in the last 6 months where you did not have access to dental care?: No Was dental information given to patient?: No HPI dm/cad/htn/hld HPI Details The patient is a 70-year-old male presenting for follow-up for chronic condition management and review of recent laboratory results. The patient has a history of elevated prostate-specific antigen (PSA), which was previously as high as 11.9 before decreasing to 9. He was evaluated by a urologist in [place] and had a six-month follow up. Patient is now seen Dr. Koehler at [facility]. A bladder ultrasound has been recommended. He was also placed on terazosin 5 mg at bedtime. Regarding his type 2 diabetes, the patient is on metformin and was switched from Trulicity to Mounjaro, which has improved his glycemic control. His CGM data for the last 14 days shows an average glucose of 119 mg/dL and a GMI of 6.2, an improvement from the prior 30-day average of 145 mg/dL and GMI of 6.8. His medical history is also significant for a slightly elevated red blood cell count, which is being monitored. He is a former smoker, having quit over a year ago. The patient also reports chronic neuropathic leg and back pain, which limits his physical activity. He has a history of blood clots and has been referred to a vascular specialist. An ultrasound of his leg was recently performed. [facility] Medical History Depression Restless leg syndrome Neuropathy Diabetes mellitus CVA (cerebral vascular accident) Type 2 diabetes mellitus HTN (hypertension) Surgical History History of carpal tunnel surgery History of surgery Family History Father No problems noted. Mother Heart disease Social History Household Members: Other Household Members Other:: daughter Housing: House Do you presently have visiting nurse or other home services: No Alcohol intake: current Alcohol intake frequency: holidays/special occasions only Alcohol type: beer Patient Tobacco Use Status: Former Tobacco user Tobacco use type: Cigarette e-Cigarette/Vaping Use: Never Used Second Hand Smoke Exposure: No service: No Current occupational status: retired and disabled Cognitive needs: Yes Hearing needs: No Vision needs: Yes Questionnaire Thrive Questionnaire Date Thrive assessed: 12/11/24 I am a: Patient What is your living situation today?: I have a steady place to live Within the past 12 months, did the food you bought not last and you didn't have the money to get more?: Never true Within the past 12 months, did you worry whether your food would run out before you got money to buy more?: Never true Do you have trouble paying for medicines?: No Do you have trouble getting transportation to medical appointments?: No Do you have trouble paying your heating and electricity bill?: No Do you have trouble taking care of your child, family member or friend?: No Do you have trouble with day-to-day activities such as bathing, preparing meals, shopping, managing finances, etc.?: No Are you currently unemployed and looking for a job?: No Are you interested in more education?: No Please select the resources that you would like help with: None Currently or been in a relationship where the following occur: No concerns reported THRIVE Score: 0 KAY-7 AMB Questionnaire KAY-7 Date KAY - 7 assessed: 02/13/25 Source: Developed by Drs. Neel Muhammad, Alissa Ayoub, Gómez Sargent and colleagues, with an educational jorge from [employer]. Review of Systems Const Denies headache(s) Eyes Denies loss of vision ENT Denies vertigo, Reports dizziness (Significantly improved), Denies headache(s) and Denies sore throat Card Denies chest pain, Denies leg edema and Denies lightheadedness Resp Denies cough, Denies hemoptysis and Denies wheezing GI Denies abdominal pain, Denies melena, Reports constipation (on and off), Denies diarrhea and Denies vomiting Denies dysuria, Denies urinary frequency and Denies urinary urgency Musc Denies arthralgias, Denies joint swelling, Reports numbness (feet) and Reports tingling (BLE) Neuro Denies Abnormal speech present, Denies behavioral changes, Denies vertigo, Reports dizziness (Significantly improved), Denies headache(s), Denies loss of vision, Denies memory loss, Reports numbness (feet) and Reports tingling (BLE) Psych Denies anxiety, Denies behavioral changes, Denies depression, Denies memory loss, Denies panic attacks and Reports other (insomnia) Carl/Lymph Denies easy bleeding and Denies easy bruising Aller/Immun Denies wheezing Physical exam (Primary Care) Vital Signs: Last Vital Signs Temp 96.8 F 05/20/25 10:49 Pulse 86 05/20/25 10:49 Resp 18 05/20/25 10:49 BP 104/58 L 05/20/25 10:49 Pulse Ox 96 05/20/25 10:49 Oxygen Delivery Method Room Air 05/20/25 10:49 BMI result Body Mass Index 29.9 Tobacco/Smoking Status: Tobacco use Status Tobacco use date assessed 05/20/25 05/20/25 10:51 Patient Tobacco Use Status Former Tobacco user 05/20/25 10:51 Tobacco use type Cigarette 05/20/25 10:51 e-Cigarette/Vaping Use Never Used 05/20/25 10:51 Thrive Assessment: Date of Thrive Assessment Date Thrive assessed 12/11/24 05/20/25 10:51 Currently or been in a relationship where the following occur: No concerns reported Const General: healthy appearing, no acute distress, alert and awake Nutritional Appearance: well nourished Orientation/consciousness: oriented to person, oriented to place and oriented to time HENMT Ears: hearing grossly normal bilaterally General nose exam: Normal external nose present Eyes Conjunctivae: conjunctivae normal Sclerae: sclerae normal Pupils: Equal, round and reactive pupils present Neck Neck: Yes no lymphadenopathy and Yes no JVD Thyroid: Thyroid normal Carotids: no bruits Resp Effort & Inspection: normal respiratory effort and not tachypneic Auscultation: no crackles, no rales, no rhonchi and no wheezes Cardio Rate: regular rate Rhythm: regular rhythm Heart sounds: S1 normal heart sound present, S2 normal heart sound present, no murmurs and normal S1 and S2 GI Inspection: Yes obesity Palpation (GI): Soft to palpation and nontender Auscultation: normal bowel sounds General: Yes no CVA tenderness Back/Spine/Pelvis Back: no CVA tenderness Skin General skin exam: no rashes or lesions noted and dry skin Neuro General: oriented to person, oriented to place and oriented to time Cranial nerves: Yes Equal, round and reactive pupils present Speech: No Abnormal speech present Gait exam (Neuro): Assisted gait required (cane) Motor exam (neuro): no tremor noted Extrem Right upper extremity: full ROM Left upper extremity: full ROM Right lower extremity: full ROM; no edema Left lower extremity: full ROM; no edema Psych Mental Status: mental status grossly normal Speech and movement: Normal speech and movement present Affect: normal affect Attitude: cooperative Thought process: Normal thought process present Results Reviewed Results Reviewed: Laboratory Tests 04/22/25 04/22/25 05/20/25 08:52 08:56 10:22 WBC 9.0 RBC 5.83 H Hgb 17.7 Hct 53.8 H MCV 92.3 MCH 30.4 MCHC 32.9 RDW 13.2 Plt Count 169 Sodium 143 Potassium 4.7 Chloride 108 Carbon Dioxide 30 H Anion Gap 10 L BUN 19 H Creatinine 0.95 Estimated GFR > 60 Fasting Glucose 122 H Hemoglobin A1c % 8.7 H Calcium 9.1 Iron 81 TIBC 301 % Saturation 27 Unsat Iron Binding 220 Total Bilirubin 0.6 AST 25 ALT 31 Alkaline Phosphatase 96 Total Protein 6.8 Albumin 4.0 Triglycerides 105 Cholesterol 131 LDL Cholesterol, Calc 73 HDL Cholesterol 37 L Free PSA % Free PSA Total PSA Total PSA (off-site) TSH 1.03 Urine Color Yellow Urine Appearance Clear Urine pH 5.5 Ur Specific [place] 1.020 Urine Protein Negative Urine Glucose (UA) Negative Urine Ketones Negative Urine Blood Negative Urine Nitrite Negative Ur Leukocyte Esterase Small (1+) H Urine RBC 0-2 Urine WBC 0-5 Ur Squamous Epith Cells 0-2 Hyaline Casts 0-2 05/20/25 05/20/25 10:25 11:32 WBC RBC Hgb Hct MCV MCH MCHC RDW Plt Count Sodium Potassium Chloride Carbon Dioxide Anion Gap BUN Creatinine Estimated GFR Fasting Glucose Hemoglobin A1c % Calcium Iron TIBC % Saturation Unsat Iron Binding Total Bilirubin AST ALT Alkaline Phosphatase Total Protein Albumin Triglycerides Cholesterol LDL Cholesterol, Calc HDL Cholesterol Free PSA 2.5 % Free PSA 26 Total PSA 9.54 H Total PSA (off-site) 9.7 H TSH Urine Color Urine Appearance Urine pH Ur Specific [place] Urine Protein Urine Glucose (UA) Urine Ketones Urine Blood Urine Nitrite Ur Leukocyte Esterase Urine RBC Urine WBC Ur Squamous Epith Cells Hyaline Casts Coding Level of Care Code Est Pt Level 4 (99893) Diagnoses Hypertension, unspecified type I10 Hypertension type: unspecified Coronary artery disease of [place] heart with stable angina pectoris, unspecified vessel or lesion type I25.118 Coronary Disease-Associated Artery/Lesion type: unspecified vessel or lesion type [place] vs. 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 I63.22 CVA mechanism: stenosis Precerebral and cerebral artery: basilar artery Restless leg syndrome G25.81 Dizziness R42 Carotid stenosis, bilateral I65.23 Neuropathy G62.9 Depression, unspecified depression type F32.A Depression Type: unspecified Constipation, unspecified constipation type K59.00 Constipation type: unspecified constipation type Elevated PSA R97.20 Time Spent (min) 39 Assessment & Plan Assessment & Plan (1) HTN (hypertension): Code(s): I10 - Essential (primary) hypertension Category: Medical Qualifiers: Hypertension type: unspecified Qualified Code(s): I10 - Essential (primary) hypertension Plan: Blood pressure 104/58 in office. We will pressure goal is systolic less than 130 mmHg Reinforced low-salt diet Continue metoprolol succinate ER 25 mg daily, isosorbide mononitrate ER 30 mg daily (2) CAD (coronary artery disease): Code(s): I25.10 - Atherosclerotic heart disease of [place] coronary artery without angina pectoris Category: Medical Qualifiers: Coronary Disease-Associated Artery/Lesion type: unspecified vessel or lesion type [place] vs. transplanted heart: [place] heart Associated angina: with stable angina Qualified Code(s): I25.118 - Atherosclerotic heart disease o f [place] coronary artery with other forms of angina pectoris Plan: Cardiac catheterization 09/15/2023 showed left main normal lad mild diffuse di sease, D1 moderate diffuse disease distally, left circumflex mid 70% stenosis, ENRRIQUE placed, distal circumflex 75% stenosis, ENRRIQUE placed, RCA mild diffuse disease, right PDA moderate diffuse disease. continue aspirin 81 mg and atorvastatin 80 mg Intermittent mild chest pain prior resolved per patient, however, it did not seem to be angina in nature though he has nitrogen tablets as needed (3) Stented coronary artery: Comment: OM1 stent 06/25/2019, distal and mid left circumflex stents 09/15/2023 in [place] Code(s): Z95.5 - Presence of coronary angioplasty implant and graft Category: Surgical Plan: Cardiac catheterization 09/15/2023 showed left main normal lad mild diffuse disease, D1 moderate diffuse disease distally, left circumflex mid 70% stenosis, ENRRIQUE placed, distal circumflex 75% stenosis, ENRRIQUE placed, RCA mild diffuse disease, right PDA moderate diffuse disease. continue aspirin 81 mg daily (4) Hyperlipemia: Code(s): E78.5 - Hyperlipidemia, unspecified Category: Medical Qualifiers: Hyperlipidemia type: unspecified Qualified Code(s): E78.5 - Hyperlipidemia, unspecified Plan: Triglycerides 105, total cholesterol 131, LDL 73, HDL 37-goal for LDL to be less than 70, previous LDL was 80, trending in the right direction Reinforced low-cholesterol diet and activity as tolerated. Continue atorvastatin 80 mg daily. Encouraged [place] 3 supplement (5) Diabetes mellitus: Code(s): E11.9 - Type 2 diabetes mellitus without complications Category: Medical Qualifiers: Diabetes mellitus type: type 2 Diabetes mellitus division engineer insulin use: with division engineer use Diabetes mellitus complication status: with hyperglycemia Qualified Code(s): E11.65 - Type 2 diabetes mellitus with hyperglycemia; Z79.4 - alliance manager (current) use of insulin Plan: Hemoglobin A1c goal less than 7. A1c 8.7% increased from 8%. The patient Ranjit was switched to Mounjaro by endocrinology recently. Per daughter, they has been seen lower numbers on this CGM. . The patient is currently NovoLog per sliding scale and TRESIBA 50 units at bedtime, metformin XR a 1000 mg b.i.d. reinforced low sugar/carbohydrate diet. We will continue to monitor (6) Insulin long-term use: Code(s): Z79.4 - alliance manager (current) use of insulin Category: Medical Plan: Basal and prandial insulin in place (7) CVA (cerebral vascular accident): Comment: Notes obtained from [facility], reviewed. Notes indicate history of bilateral carotid endarterectomy with subsequent left ICA occlusion 2014 with CVA and residual right-sided weakness. Last carotid ultrasound 09/25/2023 showed right ICA 16-49% stenosis, occluded left ICA. Cardiac catheterization 09/15/2023 showed left main normal lad mild diffuse disease, D1 moderate diffuse disease distally, left circumflex mid 70% stenosis, ENRRIQUE placed, distal circumflex 75% stenosis, ENRRIQUE placed, RCA mild diffuse disease, right PDA moderate diffuse disease. Code(s): I63.9 - Cerebral infarction, unspecified Category: Medical Qualifiers: CVA mechanism: stenosis Precerebral and cerebral artery: basilar artery Qualified Code(s): I63.22 - Cerebral infarction due to unspecified occlusion or stenosis of basilar artery Plan: Status post CVA with mild right-sided weakness residual. Continue atorvastatin 80 mg daily, aspirin 81 mg daily. He was on Plavix 75 mg daily and this has been discontinued by Cardiology. (8) Restless leg syndrome: Code(s): G25.81 - Restless legs syndrome Category: Medical Plan: Continue ropinirole 2 mg b.i.d. (9) Dizziness: Code(s): R42 - Dizziness and giddiness Category: Medical Plan: Patient has a history of orthostatic hypotension. Encouraged the patient to rise slowly and maintain adequate fluid hydration. (10) Carotid stenosis, bilateral: Comment: Bilateral carotid endarterectomies in [place] Code(s): I65.23 - Occlusion and stenosis of bilateral carotid arteries Category: Medical Plan: bilateral carotid endarterectomy with subsequent left ICA occlusion 2015 with CVA and residual right-sided weakness. Last carotid ultrasound 09/25/2023 showed right ICA 16-49% stenosis, occluded left ICA. Cardiac catheterization 09/15/2023 showed left main normal lad mild diffuse disease, D1 moderate diffuse disease distally, left circumflex mid 70% stenosis, ENRRIQUE placed, distal circumflex 75% stenosis, ENRRIQUE placed, RCA mild diffuse disease, right PDA moderate diffuse disease. (11) Neuropathy: Code(s): G62.9 - Polyneuropathy, unspecified Category: Medical Plan: Continue pregabalin 200 mg b.i.d. May use compression stockings to improve circulation (12) Depression: Code(s): F32.A - Depression, unspecified Category: Medical Qualifiers: Depression Type: unspecified Qualified Code(s): F32.A - Depression, unspecified Plan: Encouraged CBT Continue amitriptyline 10 mg at bedtime (13) Constipation: Code(s): K59.00 - Constipation, unspecified Category: Medical Qualifiers: Constipation type: unspecified constipation type Qualified Code(s): K59.00 - Constipation, unspecified Plan: Ongoing, continue miralax 17g daily and increasing fluids intake. The patient reports that he is not a big fan of water. (14) Elevated PSA: Code(s): R97.20 - Elevated prostate specific antigen [PSA] Category: Medical Plan: He was being monitored by Urology in [place]. His last visit was 08/16/2024 and PSA was 9.4; per patient, they has been monitoring him for prostate cancer due to his family history. The patient was referred to [facility], Dr. Koehler, who ordered a bladder ultrasound to further evaluate his condition. Orders: Orders Complete Blood Count Auto Diff 3 Months E11.65 - Type 2 diabetes mellitus with hyperglycemia, E78.5 - Hyperlipidemia, unspecified, I10 - Essential (primary) hypertension, I25.118 - Atherosclerotic heart disease of [place] coronary artery with other forms of angina pectoris, I35.0 - Nonrheumatic aortic (valve) stenosis, I65.23 - Occlusion and stenosis of bilateral carotid arteries, I73.9 - Peripheral vascular disease, unspecified, I95.2 - Hypotension due to drugs, N40.1 - Benign prostatic hyperplasia with lower urinary tract symptoms, R35.1 - Nocturia, R39.12 - Poor urinary stream, Z79.4 - skilled nursing (current) use of insulin, Z95.5 - Presence of coronary angioplasty implant and graft Comprehensive [place]. Panel Fast 3 Months E11.65 - Type 2 diabetes mellitus with hyperglycemia, E78.5 - Hyperlipidemia, unspecified, I10 - Essential (primary) hypertension, I25.118 - Atherosclerotic heart disease of [place] coronary artery with other forms of angina pectoris, I35.0 - Nonrheumatic aortic (valve) stenosis, I65.23 - Occlusion and stenosis of bilateral carotid arteries, I73.9 - Peripheral vascular disease, unspecified, I95.2 - Hypotension due to drugs, N40.1 - Benign prostatic hyperplasia with lower urinary tract symptoms, R35.1 - Nocturia, R39.12 - Poor urinary stream, Z79.4 - skilled nursing (current) use of insulin, Z95.5 - Presence of coronary angioplasty implant and graft Vitamin D 25-OH Total 3 Months E11.65 - Type 2 diabetes mellitus with hyperglycemia, E78.5 - Hyperlipidemia, unspecified, I10 - Essential (primary) hypertension, I25.118 - Atherosclerotic heart disease of [place] coronary artery with other forms of angina pectoris, I35.0 - Nonrheumatic aortic (valve) stenosis, I65.23 - Occlusion and stenosis of bilateral carotid arteries, I73.9 - Peripheral vascular disease, unspecified, I95.2 - Hypotension due to drugs, N40.1 - Benign prostatic hyperplasia with lower urinary tract symptoms, R35.1 - Nocturia, R39.12 - Poor urinary stream, Z79.4 - alliance manager (current) use of insulin, Z95.5 - Presence of coronary angioplasty implant and graft TSH reflex Free T4 3 Months E11.65 - Type 2 diabetes mellitus with hyperglycemia, E78.5 - Hyperlipidemia, unspecified, I10 - Essential (primary) hypertension, I25.118 - Atherosclerotic heart disease of [place] coronary artery with other forms of angina pectoris, I35.0 - Nonrheumatic aortic (valve) stenosis, I65.23 - Occlusion and stenosis of bilateral carotid arteries, I73.9 - Peripheral vascular disease, unspecified, I95.2 - Hypotension due to drugs, N40.1 - Benign prostatic hyperplasia with lower urinary tract symptoms, R35.1 - Nocturia, R39.12 - Poor urinary stream, Z79.4 - skilled nursing (current) use of insulin, Z95.5 - Presence of coronary angioplasty implant and graft UA CC w/rflx Micro + Cult 3 Months E11.65 - Type 2 diabetes mellitus with hyperglycemia, E78.5 - Hyperlipidemia, unspecified, I10 - Essential (primary) hypertension, I25.118 - Atherosclerotic heart disease of [place] coronary artery with other forms of angina pectoris, I35.0 - Nonrheumatic aortic (valve) stenosis, I65.23 - Occlusion and stenosis of bilateral carotid arteries, I73.9 - Peripheral vascular disease, unspecified, I95.2 - Hypotension due to drugs, N40.1 - Benign prostatic hyperplasia with lower urinary tract symptoms, R35.1 - Nocturia, R39.12 - Poor urinary stream, Z79.4 - alliance manager (current) use of insulin, Z95.5 - Presence of coronary angioplasty implant and graft Lipid Panel 3 Months E11.65 - Type 2 diabetes mellitus with hyperglycemia, E78.5 - Hyperlipidemia, unspecified, I10 - Essential (primary) hypertension, I25.118 - Atherosclerotic heart disease of [place] coronary artery with other forms of angina pectoris, I35.0 - Nonrheumatic aortic (valve) stenosis, I65.23 - Occlusion and stenosis of bilateral carotid arteries, I73.9 - Peripheral vascular disease, unspecified, I95.2 - Hypotension due to drugs, N40.1 - Benign prostatic hyperplasia with lower urinary tract symptoms, R35.1 - Nocturia, R39.12 - Poor urinary stream, Z79.4 - alliance manager (current) use of insulin, Z95.5 - Presence of coronary angioplasty implant and graft
[2025-05-20 10:49] VITALS: BP 104/58; PULSE 86; RESP 18; TEMP 36; O2SAT 96; BMI 29.9
== END 2025-05-20 12:10 | disposition home or self-care (01) ==
LOC: HO.HMCH 10:38
DX: I10 Essential (primary) hypertension (principal); I25.118 Atherosclerotic heart disease of native coronary artery with other forms of angina pectoris; Z95.5 Presence of coronary angioplasty implant and graft; E78.5 Hyperlipidemia, unspecified; E11.65 Type 2 diabetes mellitus with hyperglycemia; Z79.4 Long term (current) use of insulin; I63.22 Cerebral infarction due to unspecified occlusion or stenosis of basilar artery; G25.81 Restless legs syndrome; R42 Dizziness and giddiness; I65.23 Occlusion and stenosis of bilateral carotid arteries; G62.9 Polyneuropathy, unspecified; F32.A Depression, unspecified; K59.00 Constipation, unspecified; R97.20 Elevated prostate specific antigen [PSA]

== ENCOUNTER 2025-05-27 09:49 | Outpatient (REF) | payer MEDICARE, MEDICAID, SELFPAY ==
--- NOTE | ~2025-05-27 | US_ITS ---
CLINICAL HISTORY: R97.20 - Elevated prostate specific antigen [PSA] Exam: Ultrasound of the male pelvis Comparison: None Findings: Markedly enlarged prostate measures 6.7 x 5.8 x 5.5 cm, 108 mL, the enlarged prostate protrudes into the bladder. Bladder appears normal, no calculus or mass, prevoid bladder volume 231 mL, postvoid residual volume 32 mL, left ureteral jet is visualized and the right is not seen. Impression: Marked prostatomegaly. This document has been electronically signed by: Sandee Aldrich MD on 05/27/2025 12:05:38
== END 2025-05-27 09:50 | disposition home or self-care (01) ==
LOC: HO.HMGCX 09:49
PROVIDERS: Visit Provider Urology
DX: R97.20 Elevated prostate specific antigen [PSA] (principal)
CPT/HCPCS: 76857

== ENCOUNTER → 2025-05-27 09:58 | Outpatient (BNV) | payer MEDICARE, MEDICAID, SELFPAY | PROVIDERS: Visit Provider Radiology Diagnostic Radiology | DX: R97.20 Elevated prostate specific antigen [PSA] (principal) | CPT/HCPCS: 76857 ==

== ENCOUNTER 2025-06-05 09:46 | Outpatient (AMB) | payer MEDICARE, MEDICAID, SELFPAY ==
--- NOTE | 2025-06-05 09:53 | A.OFFVIS_ITS ---
Intake Visit Reasons: 2m/US/PSA/PVR Intake Note: patient presents today for 2 mo follow up urology medications: Amitriptyline, Terazosin blood thinners: aspirin Labs done : 05/20/25 : Total PSA 9.54 Imaging : Bladder Ultrasound 05/27/25 Pet Walker Required: No Accompanied by: Daughter Allergies hazelnuts Allergy (Severe, Uncoded 06/05/25 09:55) swelling, hives HPI Comments Details: Meme is a pleasant male. He is a patient of Dr. Huynh. He seen for the following urologic conditions - elevated PSA - lower urinary tract symptoms Bladder ultrasound 110 g prostate Discussed result PSA remains stable PSA density is below 0.1 Start finasteride to help shrink prostate Accompanied by daughter Has a strong family history of endocrine cancer - breast, ovarian - PSA 08/17 9.4, 05/17 9.7 26% Lower urinary tract symptoms Significant weakness of stream with incomplete bladder emptying No prior medications Dysuria x4 Associated conditions - CAD - insulin-dependent diabetes PFSH Medical History Depression Restless leg syndrome Neuropathy Diabetes mellitus CVA (cerebral vascular accident) Type 2 diabetes mellitus HTN (hypertension) Surgical History History of carpal tunnel surgery History of surgery Family History Father No problems noted. Mother Heart disease Social History Household Members: Other Household Members Other:: daughter Housing: House Do you presently have visiting nurse or other home services: No Alcohol intake: current Alcohol intake frequency: holidays/special occasions only Alcohol type: beer Patient Tobacco Use Status: Former Tobacco user Tobacco use type: Cigarette e-Cigarette/Vaping Use: Never Used Second Hand Smoke Exposure: No service: No Current occupational status: retired and disabled Cognitive needs: Yes Hearing needs: No Vision needs: Yes Review of Systems Const Denies chills and Denies fever(s) Card Reports no additional complaints and Denies syncope Resp Denies cough GI Denies abdominal pain and Denies heartburn Reports as per HPI and Denies change in libido Neuro Denies syncope Psych Denies change in libido Endo Denies change in libido Physical Exam Const General: cooperative, healthy appearing, comfortable and no acute distress Orientation/consciousness: patient oriented x3 HEENT Face and sinus: Yes normal facial exam Mouth: moist mucous membranes Neck Neck: Yes normal visual inspection, Yes full ROM and Yes trachea midline Chest Chest palpation & inspection: normal inspection of the chest Resp Effort & Inspection: normal respiratory effort, able to speak in complete sentences and no respiratory distress GI Inspection: Yes normal to inspection Back/Spine/Pelvis Cervical Spine: normal cervical lordosis Thoracic/Lumbar Spine: thoracic and lumbar spine normal to inspection Skin General skin exam: no rashes or lesions noted Neuro General: patient oriented x3, gait normal, tone normal and moves all extremities Extrem General: Yes normal to inspection and Yes capillary refill normal Assessment & Plan Assessment & Plan (1) Elevated PSA: Code(s): R97.20 - Elevated prostate specific antigen [PSA] Category: Medical (2) Nocturia associated with benign prostatic hyperplasia: Code(s): N40.1 - Benign prostatic hyperplasia with lower urinary tract symptoms; R35.1 - Nocturia Category: Medical (3) Weak urinary stream: Code(s): R39.12 - Poor urinary stream Category: Medical Plan Start finasteride Six-month follow-up PSA Orders: Orders PSA,Total (Free>4and<10) 6 Months R97.20 - Elevated prostate specific antigen [PSA] Medications: New finasteride 5 mg PO DAILY 90 tabs 1RF 90 days R97.20 - Elevated prostate specific antigen [PSA] Patient Instructions: This note is constructed using voice recognition software. While every effort has been made to ensure accuracy technical business analyst errors may have been included. Imaging studies, laboratory and physical exam results were discussed and reviewed in detail. No major barriers to patient understanding were identified. An opportunity to ask questions regarding the treatment plan was provided. All questions were answered. The patient expressed understanding and agreement with the above treatment plan. The patient is aware they should contact our office by phone for worsening of their current condition or the appearance of new urologic symptoms. Compliance is encouraged with any medications and followup testing that is ordered. It is a privilege to participate in the urologic care of your patient. If you have any questions or concerns regarding treatment for the above conditions, or other urologic issues, please do not hesitate to contact me. The office telephone contact is [phone]. Sincerely, Dr José Koehler MD, [facility] - Urology Compassionate Specialist Care for the Genitourinary System Coding Level of Care Code Est Pt Level 4 (16595) Complex EM visit Add On G2211 Diagnoses Elevated PSA R97.20 Nocturia associated with benign prostatic hyperplasia N40.1; R35.1 Weak urinary stream R39.12
--- OUTSIDE RECORDS SUMMARY | 2025-06-05 11:27 | XMS_ITS | Clinical Summary ---
Author Organization [address] [place] [address] Address [address] [place] [address] Phone Care Team Providers Care Music Copyist Name Role Phone Paco Christy SAMUEL Primary Care Provider [phone] Allergies No known active allergies Medications No known medications Encounters Date Type Department Care Team Description 04/15/2025 10:15 AM EDT Office Visit Orthopedic Surgery [facility] [address] [phone] Abhishek Quiros DPM Diabetic mononeuropathy [...] 10:15 AM EST Office Visit Orthopedic Surgery [facility] [address] [phone] Abhishek Quiros DPM [address] [phone] Health Maintenance Due Date Last [...] Insurance MEDICARE [place]ICAID - [place] Care Teams Music Copyist Relationship Specialty Start Date End Date Paco Christy FNP [address] [place] [id number] PCP - General Family Medicine 01/02/25
--- OUTSIDE RECORDS SUMMARY | 2025-06-05 11:27 | XMS_ITS | Patient Health Record ---
Author Organization [facility] Address [address] [place] [phone] Care Team Providers Care Rail Car Repair Carman Name Role Phone MaysNeel Unavailable [phone] Reason For Referral No Information Plan Of Treatment No Information
== END 2025-06-05 10:35 | disposition home or self-care (01) ==
LOC: HO.HUSH 09:46
PROVIDERS: Visit Provider Urology
DX: R97.20 Elevated prostate specific antigen [PSA] (principal); N40.1 Benign prostatic hyperplasia with lower urinary tract symptoms; R35.1 Nocturia; R39.12 Poor urinary stream
CPT/HCPCS: 99214; G2211

== ENCOUNTER → 2025-06-05 09:46 | Outpatient (BNVA) | payer MEDICARE, MEDICAID, SELFPAY | PROVIDERS: Visit Provider Urology | DX: R97.20 Elevated prostate specific antigen [PSA] (principal); N40.1 Benign prostatic hyperplasia with lower urinary tract symptoms; R39.12 Poor urinary stream; R35.1 Nocturia; Z79.01 Long term (current) use of anticoagulants; Z87.891 Personal history of nicotine dependence | CPT/HCPCS: 99212 ==

== ENCOUNTER 2025-06-10 09:16 | Outpatient (AMB) | payer MEDICARE, MEDICAID, SELFPAY ==
[2025-06-10 09:18] VITALS: BMI 29.9
--- NOTE | 2025-06-10 09:18 | MHC.OFFVIS ---
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 Pt states Left LE worse than Right LE and bilateral foot pain, feels like walking on glass. Pt states left LE cramping after minimal ambulation. Helix Coil Winder Required: No Accompanied by: Daughter Allergies hazelnuts Allergy (Severe, Uncoded 06/10/25 09:23) swelling, hives HPI HPI FISH HATCHERY INSPECTOR/ PCP Referral for PAD s/p Arterial: Details: The patient is a 70-year-old male presenting for evaluation of leg pain. He reports significant bilateral leg pain with exertion, which is worse in the left leg. He can walk less than half a block before experiencing a burning sensation in his feet that radiates up his legs, accompanied by cramping and tightness that forces him to sit down for relief. The patient has a history of bilateral carotid surgeries performed at [facility] in [place], with the left side done approximately 6 years ago and the right side 4.5 years ago. He has not had surveillance follow-up in some time. His past medical history is significant for diabetes for approximately 20 years, coronary artery stents. He is a former smoker who quit about a year and a half ago, previously smoking about a pack per day. He also has a known history of neuropathy. He now presents to us for vascular evaluation [facility] Medical History Depression Restless leg syndrome Neuropathy Diabetes mellitus CVA (cerebral vascular accident) Type 2 diabetes mellitus HTN (hypertension) Surgical History History of carpal tunnel surgery History of surgery Family History Father No problems noted. Mother Heart disease Social History Household Members: Other Household Members Other:: daughter Housing: House Do you presently have visiting nurse or other home services: No Alcohol intake: current Alcohol intake frequency: holidays/special occasions only Alcohol type: beer Patient Tobacco Use Status: Former Tobacco user Tobacco use type: Cigarette e-Cigarette/Vaping Use: Never Used Second Hand Smoke Exposure: No service: No Current occupational status: retired and disabled Cognitive needs: Yes Hearing needs: No Vision needs: Yes Review of Systems Const All systems reviewed & are unremarkable except as noted in HPI and below Reports no additional complaints ENT Reports Normal hearing present Card Denies chest pain, Denies chest pain at rest, Denies chest pain with activity and Denies pedal edema Resp Denies cough GI Denies abdominal pain Musc Denies abnormal gait, Denies muscle cramps and Denies radiating pain into limb Skin/Breast Denies skin ulcer and Denies wounds Neuro Reports Normal hearing present and Denies abnormal gait Psych Reports no additional complaints Physical Exam Vital Signs: BMI result Body Mass Index 29.9 Const General: cooperative, healthy appearing and comfortable Orientation/consciousness: oriented to person, oriented to place and oriented to time HEENT Head: Yes normal to inspection Neck Neck: Yes normal visual inspection Carotids: no bruits Chest Chest palpation & inspection: normal inspection of the chest Resp Effort & Inspection: normal respiratory effort and able to speak in complete sentences Auscultation: clear to auscultation bilaterally, no crackles, no rales, no rhonchi and no wheezes Cardio Other: Bilateral DP signals Rate: regular rate Rhythm: regular rhythm Heart sounds: S1 normal heart sound present and S2 normal heart sound present Bruits: no carotid bruits GI Inspection: Yes normal to inspection Skin Wounds: no wounds Hair: normal Neuro General: oriented to person, oriented to place and oriented to time Cranial nerves: Yes CN's II-XII intact bilaterally and Yes Normal hearing present Cognition (Neuro): normal cognition Motor exam (neuro): 5/5 motor strength present throughout Extrem Other: venous exam: No significant superficial varicosities or spider telangiectasias, minimal edema General: No clubbing, No cyanosis and No edema Psych Appearance: grossly normal Mental Status: mental status grossly normal Speech and movement: Normal speech and movement present Results Reviewed Results Reviewed: Carotid testing dated 02/17/2025 demonstrates right-sided 0-49% with left-sided occlusion. Assessment & Plan Assessment & Plan (1) PAD (peripheral artery disease): Code(s): I73.9 - Peripheral vascular disease, unspecified Category: Medical Plan: I discussed with the patient and his family that his leg symptoms are consistent with peripheral artery disease due to poor blood flow. I explained that my exam finding of weak pulses in the groin suggests the blockages may be located higher up, in the abdomen or pelvis. To get a clear picture of the blood flow, I am ordering a CT angiogram that will visualize the arteries from his abdomen down to his feet. I advised him that he needs to get blood work done to check his kidney function a day or two before the scan. We will have him return for a follow-up visit after the scan to review the results and develop a treatment plan to improve blood flow to his legs. (2) Carotid stenosis, bilateral: Comment: Bilateral carotid endarterectomies in [place] Code(s): I65.23 - Occlusion and stenosis of bilateral carotid arteries Category: Medical Plan: We will workup arterial disease and will require annual surveillance regarding his carotids. Orders: Orders Creatinine Today I73.9 - Peripheral vascular disease, unspecified CT angio abd aorta runoff Today I73.9 - Peripheral vascular disease, unspecified Blood Urea Nitrogen Today I73.9 - Peripheral vascular disease, unspecified US carotid duplex BI 1 Year I65.23 - Occlusion and stenosis of bilateral carotid arteries Coding Level of Care Code New Pt Level 4 (65730) Complex EM visit Add On G2211 Diagnoses PAD (peripheral artery disease) I73.9 Carotid stenosis, bilateral I65.23
== END 2025-06-10 10:08 | disposition home or self-care (01) ==
LOC: HO.HVS 09:17
PROVIDERS: Visit Provider Surgery Vascular Surgery
DX: I73.9 Peripheral vascular disease, unspecified (principal); I65.23 Occlusion and stenosis of bilateral carotid arteries
CPT/HCPCS: 99204; G2211

== ENCOUNTER → 2025-06-10 09:16 | Outpatient (BNVA) | payer MEDICARE, MEDICAID, SELFPAY | PROVIDERS: Visit Provider Surgery Vascular Surgery | DX: I73.9 Peripheral vascular disease, unspecified (principal); I65.23 Occlusion and stenosis of bilateral carotid arteries | CPT/HCPCS: 99202 ==

== ENCOUNTER 2025-07-08 08:49 | Outpatient (REF) | payer MEDICARE, MEDICAID, SELFPAY ==
--- OUTSIDE RECORDS SUMMARY | 2025-07-08 09:36 | XMS_ITS | Patient Health Record ---
Author Organization [facility] Address [address] [place] [phone] Care Team Providers Care Station Cashier Name Role Phone MaysNeel Unavailable [phone] Reason For Referral No Information Plan Of Treatment No Information
--- OUTSIDE RECORDS SUMMARY | 2025-07-08 09:36 | XMS_ITS | Clinical Summary ---
Author Organization [address] [place] [address] Address [address] [place] [address] Phone Care Team Providers Care Property Management Intern Name Role Phone Paco Christy SAMUEL Primary Care Provider Allergies No known active allergies Medications No known medications Encounters Date Type Department Care Team Description 04/15/2025 10:15 AM EDT Office Visit Orthopedic Surgery [facility] [address] [phone] Abhishek Quiros DPM Diabetic mononeuropathy [...] 10:15 AM EST Office Visit Orthopedic Surgery [facility] [address] [phone] Abhishek Quiros DPM [address] [phone] Health Maintenance Due Date Last [...] Health Screening 01/02/2025 COVID-19 Vaccine ( - 2024-2 6 season) 2025 Influenza Vaccine (#1) 2025 Diabetes: [...] Insurance MEDICARE MEDICAID - [place] Care Teams Property Management Intern Relationship Specialty Start Date End Date Paco Christy FNP [address] [place] [id number] PCP - General Family Medicine 01/02/25
[2025-07-08 09:58] LABS: Blood Urea Nitrogen 23 mg/dL (9-16); Estimated Glomerular Filt Rate > 60
== END 2025-07-08 08:50 | disposition home or self-care (01) ==
LOC: HO.LAB 08:49
PROVIDERS: Visit Provider Surgery Vascular Surgery
DX: I73.9 Peripheral vascular disease, unspecified (principal)
CPT/HCPCS: 36415; 82565; 84520

== ENCOUNTER 2025-07-22 07:45 | Outpatient (REF) | payer MEDICARE, MEDICAID, SELFPAY ==
--- NOTE | ~2025-07-22 | CT_ITS ---
CLINICAL HISTORY: I73.9 - Peripheral vascular disease, unspecified --- Additional Notes or Special Instructions: Activity limiting claudication left greater than right CT angiography abdomen and pelvis with bilateral lower extremity runoff using IV contrast. 3-D post processing. Comparison: None provided Findings: There is 90% stenosis of the proximal left common iliac artery. There is occlusion of the proximal left popliteal artery with reconstitution of the distal popliteal artery at the level of the upper knee Aorta, mesenteric/renal arteries, iliofemoral systems, and bilateral lower extremity three-vessel runoffs are otherwise within normal limits. No consolidation or effusion at the lung bases. There are gallstones versus subcentimeter polyps. The gallbladder is otherwise unremarkable. The appearance of the liver suggests fatty infiltration. Solid organs are within normal limits. No renal stones. No bowel obstruction, pneumoperitoneum, or pneumatosis. The prostate measures 7.6 x 5.4 x 7.0 cm. Pelvic contents otherwise unremarkable. Normal appendix. Bilateral lower extremity soft tissues are unremarkable. The bones are intact. IMPRESSION: 1. Occluded left popliteal artery with reconstitution of flow in the distal popliteal artery and remaining runoff vessels. 2. 90% proximal left common iliac artery stenosis. 3. Hepatic steatosis. This document has been electronically signed by: Eddy Jackson MD on 07/23/2025 09:48:38
[2025-07-22] MEDS: iohexoL 350 MG/ML 100 ML INFUS..BTL IV (09:00)
--- OUTSIDE RECORDS SUMMARY | 2025-07-22 09:09 | XMS_ITS | Clinical Summary ---
Author Organization [address] [place] [address] Address [address] [place] [address] Phone Care Team Providers Care Teacher Adult Education Name Role Phone Paco Christy SAMUEL Primary Care Provider Allergies Active Allergy Reactions Criticality Noted Date Comments Hazelnut Swelling High 12/25/2024 Medications amitriptyline (ELAVIL) 10 mg tablet Take 1 tablet (10 mg total) by mouth. 12/18/19 25 Active atorvastatin (LIPITOR) 80 mg tablet Take 1 tablet (80 mg total) by mouth. at bedtime. Active aspirin 81 mg EC tablet Take 1 tablet (81 mg total) by mouth. 12/18/19 25 Active blood sugar diagnostic (OneTouch Verio test strips) test strip USE STRIP TO CHECK GLUCOSE THREE TIMES DAILY DIRECTED 02/14/20 25 Active carBAMazepine XR (TEGretol XR) 200 mg 12 hr tablet 10/21/19 25 Active Trulicity 4.5 mg/0.5 mL pen injector injection INJECT 1 PEN (4.5 MG) SUBCUTANEOUSLY EVERY MONDAY Active clopidogreL (PLAVIX) 75 mg tablet Take 1 tablet (75 mg total) by mouth. 12/26/19 25 Active famotidine (PEPCID) 20 mg tablet Take 1 tablet (20 mg total) by mouth 2 (two) times a day. Active ezetimibe (ZETIA) 10 mg tablet TAKE 1 TABLET BY MOUTH ONCE DAILY NEW CHOLESTEROL LOWERING AGENT 06/10/20 25 Active hydrocortisone 1 % topical cream APPLY CREAM EXTERNALLY ONCE DAILY 01/15/20 25 Active Fiasp U-100 Insulin 100 unit/mL injection 08/20/19 25 Active insulin degludec (TRESIBA FlexTouch U-200) 200 unit/mL (3 mL) CONCENTRATED injection pen 07/14/20 25 Active insulin glargine,hum.rec .anlog (Basaglar KwikPen U-100 Insulin) 100 unit/mL (3 mL) injection pen 09/02/19 25 Active insulin glargine-yfgn 100 unit/mL (3 mL) injection Inject 25 Units under the skin. 12/27/19 25 Active isosorbide mononitrate (IMDUR) 30 mg 24 hr tablet Take 1 tablet (30 mg total) by mouth 2 (two) times a day. Active lisinopriL (PRINIVIL,ZESTRI L) 5 mg tablet 10/21/19 25 Active metFORMIN XR (GLUCOPHAGE-XR) 500 mg 24 hr tablet Take 2 tablets (1,000 mg total) by mouth 2 (two) times a day. 04/30/20 25 Active metoprolol succinate (TOPROL-XL) 25 mg 24 hr tablet Take 1 tablet (25 mg total) by mouth 1 (one) time each day. Active nitroglycerin (NITROSTAT) 0.[address] 1 tablet (0.3 mg total) under the tongue. 12/26/19 25 Active pregabalin (LYRICA) 200 mg capsule Take 1 capsule (200 mg total) by mouth 2 (two) times a day. Active rOPINIRole (REQUIP) 2 mg tablet Take 1 tablet (2 mg total) by mouth 2 (two) times a day. 06/17/20 25 Active Mounjaro 5 mg/0.5 mL injection 07/14/20 25 Active terazosin (HYTRIN) 5 mg capsule Take 1 capsule (5 mg total) by mouth. at bedtime 04/03/20 25 Active Encounters Date Type Department Care Team Description 07/15/2025 10:15 AM EST Office Visit Orthopedic Surgery - [address] [phone] Abhishek Quiros, DPNain Diabetic mononeuropathy simplex ([facility] V24, [facility] V28) (Primary Dx); Type II diabetes mellitus with peripheral circulatory disorder ([facility] V24, [facility] V28); Dermatophytosis of nail; Pain in toe of right foot; Pain in toe of left foot; Hammer toe of left foot; Acquired hammer toe of right foot from Last 3 Months Social History Tobacco Use Types Packs/Day Years Used Date Smoking Tobacco: Never Assessed Sex and Gender Information Value Date Recorded Sex Assigned at Not on file Legal Sex Male 8:22 AM EDT Gender Identity Not on file Sexual Orientation Not on file Plan of Treatment Upcoming Encounters Date Type Department Care Team ([facility] Contact Info) Description 10/13/2025 9:45 AM EDT Office Visit Orthopedic Surgery - [place] [address] [phone] Abhishek Quiros, DPM [address] [address] Health Maintenance Due Date Last [...] Health Screening 01/02/2025 COVID-19 Vaccine (1 - 2024-2 6 season) 2025 Influenza Vaccine (#1) 2025 Diabetes: Annual Urine Albumin-Creatinine Ratio (uACR) 07/15/2025 Diabetes: Blood Sugar Contro l Test (HGBA1C) 07/15/2025 Hypertension/CHF/CAD Annual BMP Blood Test 07/15/2025 HIB Vaccines Aged Out No longer eligi [...] Insurance MEDICARE [place]ICA[place] - [place] Care Teams Teacher Adult Education Relationship Specialty Start Date End Date Paco Christy FNP [address] [place] [address] PCP - General Family Medicine 01/02/25
--- OUTSIDE RECORDS SUMMARY | 2025-07-22 09:10 | XMS_ITS | Patient Health Record ---
Author Organization [facility] Address [address] [place] [phone] Care Team Providers Care Educational Advisor Name Role Phone MaysNeel Unavailable [phone] Reason For Referral No Information Plan Of Treatment No Information
== END 2025-07-22 07:46 | disposition home or self-care (01) ==
LOC: HO.CT 07:45
PROVIDERS: Visit Provider Surgery Vascular Surgery
DX: I73.9 Peripheral vascular disease, unspecified (principal)
CPT/HCPCS: 75635; Q9967

== ENCOUNTER → 2025-07-22 07:47 | Outpatient (BNV) | payer MEDICARE, MEDICAID, SELFPAY | PROVIDERS: Visit Provider Specialist | DX: K76.0 Fatty (change of) liver, not elsewhere classified (principal); I70.8 Atherosclerosis of other arteries; I70.202 Unspecified atherosclerosis of native arteries of extremities, left leg | CPT/HCPCS: 75635 ==